=== PATIENT | female | born 1935 | race Caucasian/White ===

== ENCOUNTER → 2016-09-23 | Outpatient (CLI) | payer MEDICARE ==
--- NOTE | 2016-09-28 11:05 | MM ---
Reason for exam: screening (asymptomatic). Last mammogram was performed 1 year and 1 month ago. History: Patient is postmenopausal. Benign US breast aspiration single LT of the left breast, October 10, 2014. Benign US breast localization LT, October 02, 2014. Benign left breast aspiration of the left breast, February 05, 2012. Excisional biopsy of the left breast, September 26, 2007. Physical Findings: A clinical breast exam by your physician is recommended on an annual basis and results should be correlated with mammographic findings. MG 3D Screening Mammo W/Cad Bilateral CC and MLO view(s) were taken. Prior study comparison: September 04, 2015, bilateral MG 3d diag mammo w/cad HOLLY. April 24, 2015, left breast MG 3d diag mammo w/cad LT. The breast tissue is heterogeneously dense. This may lower the sensitivity of mammography. Finding: There are typically stable benign calcifications. No significant changes in finding since September 04, 2015 and April 24, 2015. ASSESSMENT: Benign, BI-RAD 2 RECOMMENDATION: Routine screening mammogram of both breasts in 1 year.
== END | disposition home or self-care (01) ==
LOC: RADMAMWWP 08:58
PROVIDERS: ATTEND Family Medicine
DX: Z12.31 Encounter for screening mammogram for malignant neoplasm of breast (principal)
CPT/HCPCS: 77063; G0202

== ENCOUNTER 2016-10-05 16:45 | Emergency (ER) | payer MEDICARE ==
[2016-10-05 17:14] VITALS: TEMP 97.1
--- NOTE | 2016-10-05 18:41 | ED ---
General Adult HPI - General Chief complaint: Chest Pain Stated complaint: Fall Time Seen by Provider: 10/05/16 18:31 Source: patient, RN notes reviewed Mode of arrival: wheelchair Limitations: no limitations - History of Present Illness Initial comments: 80-year-old female presents emergency Department chief complaint fall. Patient states she was going up her steps with a bag of groceries and fell onto the groceries. Patient complains of left chest wall pain. She states that she did not hit her head and there was no LOC. Denies any abdominal pain and denies nausea, vomiting, diarrhea constipation. Denies any extremity injuries including upper and lower extremities. Patient states she just has pain along her left anterior to lateral ribs. She states it is worse when she twists and bends and when she takes a deep inspiration. Patient did note that she does take Coumadin and usually has it checked once a month on the . She states she has not had it checked every 3 weeks. Patient denies any new bruising. She states her was some bruising on her abdomen which was old. Patient denies headache, dizziness. - Related Data Home Medications Medication Instructions Recorded Confirmed Carvedilol [Coreg] 3.125 mg PO BID 10/02/14 10/05/16 Docusate [Colace] 100 mg PO DAILY 10/02/14 10/05/16 Furosemide [Lasix] 20 mg PO DAILY PRN 10/02/14 10/05/16 Irbesartan 150 mg PO BID 10/02/14 10/05/16 Isosorbide Mononitrate ER [Imdur] 30 mg PO DAILY 10/02/14 10/05/16 Loratadine [Claritin] 10 mg PO DAILY PRN 10/02/14 10/05/16 Nitroglycerin Sl Tabs [Nitrostat] 0.4 mg SUBLINGUAL Q5M PRN 10/02/14 10/05/16 [place]-3 Fatty Acids/Fish Oil [Fish 1 cap PO BID 10/02/14 10/05/16 Oil 1,000 mg Softgel] Ranitidine HCl [Zantac] 150 mg PO DAILY PRN 10/02/14 10/05/16 Vitamin E (Dl,Tocopheryl Acet) 400 tab PO HS 10/02/14 10/05/16 [Vitamin E] Warfarin [Coumadin] 5 mg PO Q48H 10/02/14 10/05/16 Aspirin [Adult Low Dose Aspirin EC] 81 mg PO DAILY 01/13/16 10/05/16 Albuterol Inhaler [Ventolin Hfa 2 puff INHALATION RT-Q4H PRN 06/11/16 10/05/16 Inhaler] Montelukast [Singulair] 10 mg PO QAM 06/11/16 10/05/16 Warfarin [Coumadin] 7.5 mg PO Q48H 06/11/16 10/05/16 Cholecalciferol [Vitamin D3] 1,000 unit PO DAILY 10/05/16 10/05/16 Previous Rx's Medication Instructions Recorded Acetaminophen-Codeine 300-30mg 1 tab PO Q4H PRN #20 tablet 10/05/16 [Tylenol #3] Allergies Allergy/AdvReac Type Severity Reaction Status Date / Time benazepril HCl Allergy Wheezing Verified 10/05/16 19:05 [From Lotensin] gemfibrozil [From Lopid] Allergy Rash/Hives Verified 10/05/16 19:05 amlodipine besylate AdvReac Swelling Verified 10/05/16 19:05 [From Norvasc] atorvastatin calcium AdvReac Nausea & Verified 10/05/16 19:05 [From Lipitor] Vomiting esomeprazole magnesium AdvReac Cough Verified 10/05/16 19:05 [From Nexium] pravastatin AdvReac Unknown Verified 10/05/16 19:05 procaine HCl [From Novocain] AdvReac Unknown Verified 10/05/16 19:05 Review of Systems ROS Statement: Those systems with pertinent positive or pertinent negative responses have been documented in the HPI. ROS Other: All systems not noted in ROS Statement are negative. Past Medical History Past Medical History: Atrial Fibrillation, Coronary Artery Disease (CAD), CVA/ TIA, GERD/Reflux, GI Bleed, Hyperlipidemia, Hypertension Additional Past Medical History / Comment(s): arthritis, osteoporsis, History of Any Multi-Drug Resistant Organisms: None Reported Past Surgical History: Cholecystectomy, Heart Catheterization, Tonsillectomy Additional Past Surgical History / Comment(s): hysterectomy, colonscopy/polys removed, breast biopsies Past Anesthesia/Blood Transfusion Reactions: No Reported Reaction Past Psychological History: No Psychological Hx Reported Smoking Status: Former smoker Past Alcohol Use History: None Reported Past Drug Use History: None Reported - Past Family History Son(s) Family Medical History: AICD/Pacemaker, Hyperlipidemia, Hypertension Additional Family Medical History / Comment(s): heart valve replacement, colon CA, heart murmur, heart failure since been resolved Mother Family Medical History: Coronary Artery Disease (CAD), Myocardial Infarction ([place] ) Father Family Medical History: CVA/TIA, Hypertension, Myocardial Infarction ([place]) General Exam General appearance: alert, in no apparent distress Head exam: Present: atraumatic, normocephalic, normal inspection Eye exam: Present: normal appearance ENT exam: Present: normal exam, normal oropharynx Neck exam: Present: normal inspection, full ROM. Absent: tenderness, meningismus, lymphadenopathy Respiratory exam: Present: normal lung sounds bilaterally, chest wall tenderness (Moderate left anterior to lateral rib tenderness), other (There is no ecchymosis on the chest wall). Absent: respiratory distress, wheezes, rales , rhonchi, stridor Cardiovascular Exam: Present: regular rate, normal rhythm, normal heart sounds. Absent: systolic murmur, diastolic murmur, rubs, gallop, clicks GI/Abdominal exam: Present: soft, normal bowel sounds. Absent: distended, tenderness, guarding, rebound, rigid Extremities exam: Present: normal inspection, full ROM, normal capillary refill. Absent: tenderness, pedal edema, joint swelling, calf tenderness Back exam: Present: full ROM. Absent: tenderness, paraspinal tenderness, vertebral tenderness Neurological exam: Present: alert, oriented X3, CN II-XII intact, reflexes normal. Absent: motor sensory deficit Skin exam: Present: warm, dry, intact, normal color. Absent: rash Course Vital Signs 10/05/16 17:04 Temperature 97.1 F L Pulse Rate 97 Respiratory 18 Rate O2 Sat by Pulse 97 Oximetry Medical Decision Making - Medical Decision Making 8-year-old female presents emergency Department chief complaint fall. Patient complains of rib pain after fall. There is no acute displaced fracture. Patient most likely has rib contusion versus nondisplaced fracture. Patient be given pain medication and discharge. - Lab Data Lab Results 10/05/16 Range/Units 18:49 PT 26.1 H (9.0-12.0) sec INR 2.7 (<1.1) APTT 31.6 H (22.0-30.0) sec Disposition Clinical Impression: Fall, Rib contusion Disposition: HOME SELF-CARE Condition: Stable Instructions: Rib Contusion (ED) Additional Instructions: Please return to the Emergency Department if symptoms worsen or any other concerns. Prescriptions: Acetaminophen-Codeine 300-30mg [Tylenol #3] 1 tab PO Q4H PRN #20 tablet PRN Reason: pain Time of Disposition: 20:06
[2016-10-05 19:10] LABS: INR 2.7 (<1.1); Partial Thromboplastin Time 31.6 sec (22.0-30.0); Prothrombin Time 26.1 sec (9.0-12.0)
--- NOTE | 2016-10-05 19:27 | XR ---
EXAMINATION TYPE: XR ribs LT w pa chest xray DATE OF EXAM: 10/05/2016 7:12 PM CLINICAL HISTORY: Chest and left-sided rib pain after fall injury today. TECHNIQUE: Single frontal view of the chest is obtained. A frontal and oblique images of the left-alessandro ed ribs are acquired. COMPARISON: Prior chest x-ray June 11, 2016. FINDINGS: There is no focal air space opacity, pleural effusion, or pneumothorax seen. The cardiac silhouette size remains enlarged with atherosclerotic and slightly ectatic thoracic aorta. Underlying scoliosis is redemonstrated. Osseous structures are demineralized which is noted to lower radiograph ic sensitivity. Dedicated images of left-sided ribs show no acute displaced left-sided rib fracture IMPRESSION: 1. Cardiomegaly without acute pulmonary process. 2. No acute displaced left-sided rib fractures are clearly seen.
[2016-10-05] MEDS ORDERED: ACET/COD 300 MG/30 MG STARTER PACK 6 TAB BTL PO STA (20:08)
[2016-10-05 20:18] VITALS: BP 140/97; PULSE 91; RESP 16
== END 2016-10-05 20:18 | disposition home or self-care (01) ==
LOC: EC 16:45
DX: S20.212A Contusion of left front wall of thorax, initial encounter (principal); I25.10 Atherosclerotic heart disease of native coronary artery without angina pectoris; K21.9 Gastro-esophageal reflux disease without esophagitis; E78.5 Hyperlipidemia, unspecified; I10 Essential (primary) hypertension; I48.91 Unspecified atrial fibrillation; Z87.891 Personal history of nicotine dependence; Z95.818 Presence of other cardiac implants and grafts; Z79.02 Long term (current) use of antithrombotics/antiplatelets; Z79.899 Other long term (current) drug therapy; Z79.01 Long term (current) use of anticoagulants; Z79.82 Long term (current) use of aspirin; Z88.8 Allergy status to other drugs, medicaments and biological substances; W10.9XXA Fall (on) (from) unspecified stairs and steps, initial encounter
CPT/HCPCS: 36415; 85610; 85730; 99283

== ENCOUNTER 2016-12-15 10:44 | Day surgery (SDC) | payer MEDICARE ==
[2016-12-11 08:42] VITALS: BMI 30.5
[~2016-12-15 10:44] MED LIST: SODIUM CHLORIDE 0.9% 1,000 ML IV SCH
[2016-12-15 11:12] VITALS: TEMP 97.7
[2016-12-15 11:34] LABS: Basophils % (A) 1 %; CH 29.3; CHCM 32.8; Eosinophils # (A) 0.2 k/uL (0-0.7); Eosinophils % (A) 4 %; HCT 40.8 % (34.0-46.0); HDW 2.63; HGB 13.3 gm/dL (11.4-16.0); Luc # (Auto) 0.19; Luc % (Auto) 4; Lymphocytes # (A) 1.8 k/uL (1.0-4.8); Lymphocytes % (A) 35 %; MCH 29.3 pg (25.0-35.0); MCHC 32.7 g/dL (31.0-37.0); MCV 89.7 fL (80.0-100.0); Mean Platelet Volume 7.8; Monocytes # (A) 0.4 k/uL (0-1.0); Monocytes % (A) 8 %; Neutrophils # (A) 2.4 k/uL (1.3-7.7); Neutrophils % (A) 49 %; RBC 4.54 m/uL (3.80-5.40); RDW 14.4 % (11.5-15.5); WBC (Perox) 5.25
[2016-12-15 11:44] LABS: INR 3.6 (<1.1); Prothrombin Time 35.4 sec (9.0-12.0)
[2016-12-15] MEDS ORDERED: SODIUM CHLORIDE 0.9% 500 ML IV ONE (11:55)
[2016-12-15] MEDS: BENZOCAINE SPRAY 100 APPLIC/CAN TOPICAL ONE ×2 (11:57→12:11)
[2016-12-15 12:07] LABS: Anion Gap 9 mmol/L; Blood Urea Nitrogen 21 mg/dL (7-17); Calcium 9.1 mg/dL (8.4-10.2); Carbon Dioxide 26 mmol/L (22-30); Chloride 104 mmol/L (98-107); Glucose 113 mg/dL (74-99); Non-African American GFR(MDRD) 50 (>60 ml/min/1.73 sqM); Potassium 4.3 mmol/L (3.5-5.1); Sodium 139 mmol/L (137-145)
[2016-12-15] MEDS ORDERED: LIDOCAINE 1% INJ 10MG/ML (20 ML MDV) ONE (12:12)
[2016-12-15] MEDS ORDERED: PROPOFOL 10 MG/ML 20 ML VIAL IV ONE (12:12)
[2016-12-15 12:53] VITALS: PULSE 69
[2016-12-15 14:52] VITALS: RESP 20
[2016-12-15 14:53] VITALS: BP 111/53
--- NOTE | 2016-12-15 15:12 | ECHOT ---
DATE OF SERVICE: 12/15/2016 PERFORMING PHYSICIAN: Silver Aranda MD, wafer fabrication operator. PROCEDURE PERFORMED: Transesophageal echocardiogram. INDICATION OF THE STUDY: This is a pleasant 80-year-old female patient who was diagnosis with A. fib and RVR and she was scheduled to undergo a cardioversion. The transesophageal echocardiogram is to rule out any left atrial appendage thrombus. COMPLICATIONS: None. LEVEL OF SEDATION: Moderate with sedation length about 15 minutes. PROCEDURE DESCRIPTION: After obtaining an informed consent, explaining the procedure, benefits, risks, complications and alternatives, the patient was brought to the transesophageal echocardiogram suite. A pulse oximetry and heart rate monitors were attached to the patient prior to the procedure. The patient's throat was sprayed using lidocaine locally. Following that, the patient was turned into left lateral position. A bite guard was placed and the patient was then sedated with the above doses of Versed and fentanyl in divided doses. Following that, the transesophageal echocardiogram probe was advanced through the bite guard into the mid esophagus where 2-D echocardiogram images as well as color Doppler images of various cardiac structures were obtained. We evaluated the interatrial septum using 2-D echocardiogram, color Doppler, and contrast study. The procedure was completed. There were no complications. FINDINGS: The left ventricular dimension and systolic function appeared to be within normal limits. The ejection fraction seems to be in the range of 50%. The left atrium appeared to be mildly dilated. The left atrial appendage appeared to be free from any thrombus. The interatrial septum appeared to be intact without any evidence of shunt. The aortic valve is thickened and calcified without stenosis with trace insufficiency. The mitral valve seems to be also thickened with mild MR, There was moderate tricuspid regurgitation seen. CONCLUSION: 1. Normal left atrial appendage without any evidence of thrombus. 2. Intact interatrial septum without any evidence of shunt. 3. Mild biatrial enlargement. 4. Low normal left ventricular systolic function with an ejection fraction of 50%. 5. Aortic sclerosis without stenosis with mild insufficiency. 6. Thickened mitral valve leaflets with mild mitral regurgitation. 7. Moderate tricuspid regurgitation. 8. No evidence of pericardial effusion.
--- NOTE | 2016-12-15 15:12 | CE ---
DATE OF SERVICE: 12/15/2016 PERFORMING PHYSICIAN: Silver Aranda MD, hog stomach preparer. PROCEDURES PERFORMED: Cardioversion. INDICATION: This is a pleasant 80-year-old female patient who was diagnosed with atrial fibrillation and underwent transesophageal echocardiogram where left atrial appendage thrombus was ruled out. COMPLICATION: None. PROCEDURE DESCRIPTION: After transesophageal echocardiogram was performed and left atrial appendage was ruled out, we proceeded with a cardioversion. The patient converted from atrial fibrillation to normal sinus mechanism using 360 joules on second attempt. CONCLUSION: Successful cardioversion of atrial fibrillation into normal sinus mechanism using 360 joules on second attempt.
== END 2016-12-15 14:45 | disposition home or self-care (01) ==
LOC: CATHCVL 10:44
PROVIDERS: ATTEND Internal Medicine Interventional Cardiology
DX: I48.0 Paroxysmal atrial fibrillation (principal); I11.9 Hypertensive heart disease without heart failure; I08.3 Combined rheumatic disorders of mitral, aortic and tricuspid valves; I44.7 Left bundle-branch block, unspecified; R94.31 Abnormal electrocardiogram [ECG] [EKG]; I25.10 Atherosclerotic heart disease of native coronary artery without angina pectoris; E78.5 Hyperlipidemia, unspecified; I73.9 Peripheral vascular disease, unspecified; I48.92 Unspecified atrial flutter; K21.9 Gastro-esophageal reflux disease without esophagitis; Z82.49 Family history of ischemic heart disease and other diseases of the circulatory system; Z79.01 Long term (current) use of anticoagulants; Z79.82 Long term (current) use of aspirin; Z79.899 Other long term (current) drug therapy; Z88.8 Allergy status to other drugs, medicaments and biological substances; Z87.891 Personal history of nicotine dependence
CPT/HCPCS: 93312; 93320; 93005; 93325; 92960; 80048; 85025; 85610; J2001; J2704

== ENCOUNTER 2017-08-08 21:22 | Observation (INO) | payer MEDICARE ==
[2017-08-08] MEDS ORDERED: SODIUM CHLORIDE 0.9% 500 ML IV STA (21:49)
[2017-08-08] MEDS ORDERED: NITROGLYCERIN OINT 1 INCH/GM PACKET TOPICAL STA (21:49)
[2017-08-08] MEDS ORDERED: ASPIRIN 81 MG PO STA (21:49)
--- NOTE | 2017-08-08 21:52 | ED ---
General Adult HPI - General Chief complaint: Chest Pain Stated complaint: chest pain Time Seen by Provider: 08/08/17 21:25 Source: patient, RN notes reviewed Mode of arrival: wheelchair Limitations: no limitations - History of Present Illness Initial comments: This is an 81-year-old female with past medical history significant for atrial fibrillation and hypertension. Patient comes in today complaining of left- sided chest pain. Patient states radiates to her neck and her left arm. Patient states she does not get short of breath with that she's not diaphoretic and there is no nausea. Patient states she took nitroglycerin it took the pain away for a few minutes but the pain is since returned. Patient calls the pain and achy pressure. Patient denies any recent fever chills or cough. Patient denies any abdominal pain patient denies nausea vomiting diarrhea. Patient denies any patient denies numbness weakness. Patient denies lightheadedness dizziness or near-syncopal episode. Patient states she has not exerted herself so she does not know if that makes the pain worse. Patient denies any calf pain or leg swelling. - Related Data Home Medications Medication Instructions Recorded Confirmed Docusate [Colace] 100 mg PO DAILY 10/02/14 08/08/17 Furosemide [Lasix] 20 mg PO DAILY PRN 10/02/14 08/08/17 Irbesartan 150 mg PO DAILY 10/02/14 08/08/17 Isosorbide Mononitrate ER [Imdur] 30 mg PO DAILY 10/02/14 08/08/17 Loratadine [Claritin] 10 mg PO DAILY PRN 10/02/14 08/08/17 Nitroglycerin Sl Tabs [Nitrostat] 0.4 mg SUBLINGUAL Q5M PRN 10/02/14 08/08/17 [place]-3 Fatty Acids/Fish Oil [Fish 1,000 mg PO BID 10/02/14 08/08/17 Oil 1,000 mg Softgel] Ranitidine HCl [Zantac] 150 mg PO DAILY PRN 10/02/14 08/08/17 Vitamin E (Dl,Tocopheryl Acet) 400 tab PO HS 10/02/14 08/08/17 [Vitamin E] Warfarin [Coumadin] 5 mg PO SUTUTHSA 10/02/14 08/08/17 Aspirin [Adult Low Dose Aspirin EC] 81 mg PO DAILY 01/13/16 08/08/17 Albuterol Inhaler [Ventolin Hfa 2 puff INHALATION RT-Q4H PRN 06/11/16 08/08/17 Inhaler] Warfarin [Coumadin] 7.5 mg PO MOWEFR 06/11/16 08/08/17 Cholecalciferol [Vitamin D3] 1,000 unit PO BID 10/05/16 08/08/17 Carvedilol [Coreg] 6.25 mg PO BID 12/11/16 08/08/17 Previous Rx's Medication Instructions Recorded Acetaminophen-Codeine 300-30mg 1 tab PO Q4H PRN #20 tablet 10/05/16 [Tylenol w/codeine #3] Allergies Allergy/AdvReac Type Severity Reaction Status Date / Time benazepril HCl Allergy Wheezing Verified 08/08/17 21:57 [From Lotensin] fluticasone Allergy mouth sores Verified 08/08/17 21:57 [From Advair Diskus] gemfibrozil [From Lopid] Allergy Rash/Hives Verified 08/08/17 21:57 metoprolol [From Lopressor] Allergy Hallucinati Verified 08/08/17 21:57 ons montelukast Allergy peeling Verified 08/08/17 21:57 skin and rash salmeterol Allergy mouth sores Verified 08/08/17 21:57 [From Advair Diskus] amlodipine besylate AdvReac Swelling Verified 08/08/17 21:57 [From Norvasc] atorvastatin calcium AdvReac Nausea & Verified 08/08/17 21:57 [From Lipitor] Vomiting esomeprazole magnesium AdvReac Cough Verified 08/08/17 21:57 [From Nexium] pravastatin AdvReac Unknown Verified 08/08/17 21:57 procaine HCl [From Novocain] AdvReac Unknown Verified 08/08/17 21:57 Review of Systems ROS Statement: Those systems with pertinent positive or pertinent negative responses have been documented in the HPI. ROS Other: All systems not noted in ROS Statement are negative. Past Medical History Past Medical History: Atrial Fibrillation, Asthma, Coronary Artery Disease (CAD) , Heart Failure, CVA/TIA, GERD/Reflux, GI Bleed, Hyperlipidemia, Hypertension, Pneumonia Additional Past Medical History / Comment(s): osteoporsis, hx migraines, TIA- no effects, swelling in ankles(left worse), hx ulcer, hiatal hernia, arthritis, History of Any Multi-Drug Resistant Organisms: None Reported Past Surgical History: Breast Surgery, Cholecystectomy, Heart Catheterization, Hysterectomy, Tonsillectomy Additional Past Surgical History / Comment(s): left breast biopsies, left carotid endarterectomy, left cataract, Past Anesthesia/Blood Transfusion Reactions: Motion Sickness Past Psychological History: No Psychological Hx Reported Smoking Status: Former smoker - Past Family History Son(s) Family Medical History: Cancer Additional Family Medical History / Comment(s): heart valve replacement, colon CA, heart murmur, heart failure since been resolved Mother Family Medical History: Coronary Artery Disease (CAD), Myocardial Infarction ([place] ) Father Family Medical History: CVA/TIA, Hypertension, Myocardial Infarction ([place]) General Exam - General Exam Comments Initial Comments: GENERAL: Patient is well-developed and well-nourished. Patient is nontoxic and well- hydrated and is in mild distress. ENT: Neck is soft and supple. No significant lymphadenopathy is noted. Oropharynx is clear. Moist mucous membranes. EYES: The sclera were anicteric and conjunctiva were pink and moist. Extraocular movements were intact and pupils were equal round and reactive to light. Eyelids were unremarkable. PULMONARY: Unlabored respirations. Good breath sounds bilaterally. No audible rales rhonchi or wheezing was noted. CARDIOVASCULAR: There is a regular rate and rhythm without any murmurs gallops or rubs. ABDOMEN: Soft and nontender with normal bowel sounds. No palpable organomegaly was noted. There is no palpable pulsatile mass. SKIN: Skin is clear with no lesions or rashes and otherwise unremarkable. NEUROLOGIC: Patient is alert and oriented x3. Cranial nerves II through XII are grossly intact. Motor and sensory are also intact. Normal speech, volume and content. Symmetrical smile. MUSCULOSKELETAL: Normal extremities with adequate strength and full range of motion. No lower extremity swelling or edema. No calf tenderness. LYMPHATICS: No significant lymphadenopathy is noted PSYCHIATRIC: Normal psychiatric evaluation. Normal interpersonal interactions appears functionally intact in deals appropriately with others. No signs of depression. No signs of anxiety. Limitations: no limitations Course Vital Signs 08/08/17 21:25 Temperature 97.7 F Pulse Rate 74 Respiratory 18 Rate Blood Pressure 194/91 O2 Sat by Pulse 99 Oximetry Medical Decision Making - Medical Decision Making EKG shows atrial fibrillation at 77 bpm QRS is 88 QT interval 370 QTC is 418. Patient's EKG was compared to an old EKG and it did show atrial fibrillation in the past as well. Patient's EKG currently does not have any ST segment elevation or depression or T wave abnormalities are noted. Patient's chest x-ray shows no acute abnormality. I went back into reevaluate the patient patient stated the Nitropaste seems to reduce her pain to 0 at this time. Patient's states that she is on Coumadin but hasn't taken the last 2 evenings. I spoke with Dr. Najera he agreed to admit the patient admitted the patient I wrote admitting orders. - Lab Data Result diagrams: 08/08/17 22:00 08/08/17 22:00 Lab Results 08/08/17 08/08/17 08/08/17 Range/Units 22:00 22:00 22:00 WBC 5.5 (3.8-10.6) k/uL RBC 4.57 (3.80-5.40) m/uL Hgb 13.8 (11.4-16.0) gm/dL Hct 40.8 (34.0-46.0) % MCV 89.3 (80.0-100.0) fL MCH 30.2 (25.0-35.0) pg MCHC 33.8 (31.0-37.0) g/dL RDW 13.4 (11.5-15.5) % Plt Count 219 (150-450) k/uL Neutrophils % 54 % Lymphocytes % 31 % Monocytes % 8 % Eosinophils % 4 % Basophils % 1 % Neutrophils # 3.0 (1.3-7.7) k/uL Lymphocytes # 1.7 (1.0-4.8) k/uL Monocytes # 0.4 (0-1.0) k/uL Eosinophils # 0.2 (0-0.7) k/uL Basophils # 0.0 (0-0.2) k/uL PT (9.0-12.0) sec INR (<1.2) APTT (22.0-30.0) sec Sodium 140 (137-145) mmol/L Potassium 4.2 (3.5-5.1) mmol/L Chloride 105 (98-107) mmol/L Carbon Dioxide 28 (22-30) mmol/L Anion Gap 7 mmol/L BUN 16 (7-17) mg/dL Creatinine 1.00 (0.52-1.04) mg/dL Est GFR (MDRD) Af Amer >60 (>60 ml/min/1.73 sqM) Est GFR (MDRD) Non-Af 53 (>60 ml/min/1.73 sqM) Glucose 109 H (74-99) mg/dL Calcium 9.5 (8.4-10.2) mg/dL Magnesium 2.1 (1.6-2.3) mg/dL Total Bilirubin 0.7 (0.2-1.3) mg/dL AST 27 (14-36) U/L ALT 38 (9-52) U/L Alkaline Phosphatase 93 (38-126) U/L Total Creatine Kinase 86 (30-135) U/L CK-MB (CK-2) 1.8 (0.0-2.4) ng/mL CK-MB (CK-2) Rel Index 2.1 Troponin I <0.012 (0.000-0.034) ng/mL Total Protein 6.7 (6.3-8.2) g/dL Albumin 3.9 (3.5-5.0) g/dL Amylase 98 (30-110) U/L Lipase 129 (23-300) U/L 08/08/17 Range/Units 22:00 WBC (3.8-10.6) k/uL RBC (3.80-5.40) m/uL Hgb (11.4-16.0) gm/dL Hct (34.0-46.0) % MCV (80.0-100.0) fL MCH (25.0-35.0) pg MCHC (31.0-37.0) g/dL RDW (11.5-15.5) % Plt Count (150-450) k/uL Neutrophils % % Lymphocytes % % Monocytes % % Eosinophils % % Basophils % % Neutrophils # (1.3-7.7) k/uL Lymphocytes # (1.0-4.8) k/uL Monocytes # (0-1.0) k/uL Eosinophils # (0-0.7) k/uL Basophils # (0-0.2) k/uL PT 18.3 H (9.0-12.0) sec INR 2.0 H (<1.2) APTT 29.6 (22.0-30.0) sec Sodium (137-145) mmol/L Potassium (3.5-5.1) mmol/L Chloride (98-107) mmol/L Carbon Dioxide (22-30) mmol/L Anion Gap mmol/L BUN (7-17) mg/dL Creatinine (0.52-1.04) mg/dL Est GFR (MDRD) Af Amer (>60 ml/min/1.73 sqM) Est GFR (MDRD) Non-Af (>60 ml/min/1.73 sqM) Glucose (74-99) mg/dL Calcium (8.4-10.2) mg/dL Magnesium (1.6-2.3) mg/dL Total Bilirubin (0.2-1.3) mg/dL AST (14-36) U/L ALT (9-52) U/L Alkaline Phosphatase (38-126) U/L Total Creatine Kinase (30-135) U/L CK-MB (CK-2) (0.0-2.4) ng/mL CK-MB (CK-2) Rel Index Troponin I (0.000-0.034) ng/mL Total Protein (6.3-8.2) g/dL Albumin (3.5-5.0) g/dL Amylase (30-110) U/L Lipase (23-300) U/L Disposition Clinical Impression: Unstable angina pectoris Disposition: ADMITTED IP TO THIS [facility] Referrals: Tahira Choudhury MD [Primary Care Provider] - 1-2 days Time of Disposition: 23:19
[2017-08-08 22:17] LABS: Basophils % (A) 1 %; Eosinophils # (A) 0.2 k/uL (0-0.7); Eosinophils % (A) 4 %; HCT 40.8 % (34.0-46.0); HGB 13.8 gm/dL (11.4-16.0); Lymphocytes # (A) 1.7 k/uL (1.0-4.8); Lymphocytes % (A) 31 %; MCH 30.2 pg (25.0-35.0); MCHC 33.8 g/dL (31.0-37.0); MCV 89.3 fL (80.0-100.0); Mean Platelet Volume 7.7; Monocytes # (A) 0.4 k/uL (0-1.0); Monocytes % (A) 8 %; Neutrophils % (A) 54 %; Platelet Count 219 k/uL (150-450); RBC 4.57 m/uL (3.80-5.40); RDW 13.4 % (11.5-15.5); WBC 5.5 k/uL (3.8-10.6)
--- NOTE | 2017-08-08 22:19 | XR ---
EXAMINATION TYPE: XR chest 2V DATE OF EXAM: 08/08/2017 COMPARISON: 06/11/2016 HISTORY: Chest pain TECHNIQUE: Frontal and lateral views of the chest are obtained. FINDINGS: There is no heart failure nor confluent pneumonic infiltrate. There is slight coarsening o f interstitial markings. Thoracic aorta is atheromatous. There are chest leads. There is osteopenia. IMPRESSION: No active cardiopulmonary disease. Mild fibrotic changes. No change compared to old exam .
[2017-08-08 22:28] LABS: Partial Thromboplastin Time 29.6 sec (22.0-30.0); Prothrombin Time 18.3 sec (9.0-12.0)
[2017-08-08 22:31] LABS: ALT 38 U/L (9-52); AST 27 U/L (14-36); Albumin 3.9 g/dL (3.5-5.0); Alkaline Phosphatase 93 U/L (38-126); Amylase 98 U/L (30-110); Anion Gap 7 mmol/L; Blood Urea Nitrogen 16 mg/dL (7-17); Calcium 9.5 mg/dL (8.4-10.2); Carbon Dioxide 28 mmol/L (22-30); Chloride 105 mmol/L (98-107); Glucose 109 mg/dL (74-99); Lipase 129 U/L (23-300); Magnesium 2.1 mg/dL (1.6-2.3); Potassium 4.2 mmol/L (3.5-5.1); Sodium 140 mmol/L (137-145); Total Bilirubin 0.7 mg/dL (0.2-1.3); Total Protein 6.7 g/dL (6.3-8.2)
[2017-08-08 22:43] LABS: Creatine Kinase 86 U/L (30-135)
[2017-08-08 22:56] LABS: Creatine Kinase MB 1.8 ng/mL (0.0-2.4); Troponin I <0.012 ng/mL (0.000-0.034)
[2017-08-08] MEDS ORDERED: NITROGLYCERIN SL TABS 0.4 MG TAB SUBLINGUAL PRN (23:20)
[2017-08-08] MEDS ORDERED: FAMOTIDINE 20 MG TAB PO PRN (23:21)
[2017-08-08] MEDS ORDERED: FUROSEMIDE 20 MG TAB PO PRN (23:21)
[2017-08-08] MEDS ORDERED: ALBUTEROL NEBULIZED 2.5 MG/3 ML INHALATION PRN (23:21)
[2017-08-09 00:19] VITALS: BMI 31.8
[2017-08-09 04:27] LABS: Cholesterol 198 mg/dL (<200); HDL Cholesterol 50 mg/dL (40-60); LDL Cholesterol,Calculated 109 mg/dL (0-99); Triglycerides 193 mg/dL (<150)
[2017-08-09 04:40] LABS: Creatine Kinase 70 U/L (30-135)
[2017-08-09 04:54] LABS: Creatine Kinase MB 1.4 ng/mL (0.0-2.4); Troponin I <0.012 ng/mL (0.000-0.034)
[2017-08-09] MEDS: NITROGLYCERIN OINT 1 INCH/GM PACKET TOPICAL SCH ×2 (06:04→11:34)
[2017-08-09 07:20] VITALS: BP 124/58; PULSE 68; RESP 16; TEMP 98
[2017-08-09] MEDS ORDERED: CARVEDILOL 6.25 MG TAB PO SCH (07:30)
[2017-08-09] MEDS ORDERED: ASPIRIN 325 MG TAB PO SCH (09:00)
[2017-08-09] MEDS ORDERED: ASPIRIN 81 MG PO SCH (09:12)
[2017-08-09] MEDS ORDERED: AMINOPHYLLINE 500 MG/20 ML VIAL IV PRN (09:19)
[2017-08-09] MEDS ORDERED: REGADENOSON 0.4 MG/5 ML SYRINGE IV ONE (09:19)
[2017-08-09] MEDS ORDERED: LOSARTAN 50 MG TAB PO SCH (10:00)
[2017-08-09 10:33] LABS: Creatine Kinase 67 U/L (30-135)
[2017-08-09 10:45] LABS: Creatine Kinase MB 1.4 ng/mL (0.0-2.4); Troponin I <0.012 ng/mL (0.000-0.034)
--- NOTE | 2017-08-09 11:34 | P.CRDCN ---
History of Present Illness Consult date: 08/09/17 Consult reason: chest pain History of present illness: Mrs. Thomas is a pleasant 81-year-old female past medical history significant for chronic persistent atrial fibrillation on group home anticoagulation with coumadin, hypertension, dyslipidemia, peripheral arterial disease, left carotid endartectomy and gastroesophageal reflux disease. She sees Dr. Aranda in the office. We have been asked to see her in consultation for complaints of chest pain. She states she has had epigastric burning for the past 2 days consistent with GERD/ulcer type pain she has experienced in the past. However yesterday while she was sitting down she experienced the burning radiating up in to the left anterior chest wall and into left shoulder, back and neck. She denies associated shortness of breath, dizziness, palpitations, diaphoresis, nausea or vomiting. This persisted until she presented to the hospital and was given a nitro patch. She's had no further episodes of chest pain since admission. She is currently resting comfortably in no acute distress. Telemetry tracings have been unremarkable with no evidence of an acute arrhythmia. EKG on arrival reveals atrial fibrillation with controlled ventricular response heart rate 77. Chest x-ray showed mild fibrotic changes. Laboratory data reviewed, hemoglobin 13.8, platelets 219, INR 2.0, potassium 4.2 , magnesium 2.1, creatinine 1.0, cardiac enzymes negative 3, LDL 109, HDL 50. Current cardiac medications include Coumadin, Imdur 30 mg daily, irbesartan 150 mg daily, Lasix 20 mg daily as needed, carvedilol 6.25 mg twice a day and aspirin 81 mg daily. She underwent cardiac catheterization in 2004 which revealed normal coronaries. Most recent stress test was December 2015 she had a negative Lexiscan stress test with no evidence of fixed or reversible ischemia. Most recent echocardiogram performed November 2016 revealed normal EF with aortic sclerosis and mild aortic regurgitation. Review of Systems At the time of my exam: CONSTITUTIONAL: Denies fever. Denies chills. EYES: Denies blurred vision. Denies vision changes. Denies eye pain. EARS, NOSE, MOUTH & THROAT: Denies headache. Denies sore throat. Denies ear pain. CARDIOVASCULAR: Denies chest pain. Denies shortness of breath. Denies orthopnea. Denies PND. Denies palpitations. RESPIRATORY: Denies cough. GASTROINTESTINAL: Denies abdominal pain. Denies diarrhea. Denies constipation. Denies nausea. Denies vomiting. MUSCULOSKELETAL: Denies myalgias. INTEGUMENTARY: Denies pruitis. Denies rash. NEUROLOGIC: Denies numbness. Denies tingling. Denies weakness. PSYCHIATRIC: Denies anxiety. Denies depression. ENDOCRINE: Denies fatigue. Denies weight change. Denies polydipsia. Denies polyurina. GENITOURINARY: Denies burning, hematuria or urgency with micturation. HEMATOLOGIC: Denies history of anemia. Denies bleeding. Past Medical History Past Medical History: Atrial Fibrillation, Asthma, Coronary Artery Disease (CAD) , Heart Failure, CVA/TIA, GERD/Reflux, GI Bleed, Hyperlipidemia, Hypertension, Pneumonia Additional Past Medical History / Comment(s): osteoporsis, hx migraines, TIA- no effects, swelling in ankles(left worse), hx ulcer, hiatal hernia, arthritis, History of Any Multi-Drug Resistant Organisms: None Reported Past Surgical History: Breast Surgery, Cholecystectomy, Heart Catheterization, Hysterectomy, Tonsillectomy Additional Past Surgical History / Comment(s): left breast biopsies, left breat cyst removed, left carotid endarterectomy, bilateral cataract, Past Anesthesia/Blood Transfusion Reactions: Motion Sickness Past Psychological History: No Psychological Hx Reported Smoking Status: Former smoker Past Alcohol Use History: None Reported Additional Past Alcohol Use History / Comment(s): quit smoking 50 yrs ago, smoked for 3 yrs, 1 pack/week Past Drug Use History: None Reported - Past Family History Son(s) Family Medical History: Cancer Additional Family Medical History / Comment(s): heart valve replacement, colon CA, heart murmur, heart failure since been resolved Mother Family Medical History: Coronary Artery Disease (CAD), Myocardial Infarction ([place] ) Father Family Medical History: CVA/TIA, Hypertension, Myocardial Infarction ([place]) Medications and Allergies Home Medications Medication Instructions Recorded Confirmed Type Docusate [Colace] 100 mg PO DAILY 10/02/14 08/08/17 History Furosemide [Lasix] 20 mg PO DAILY PRN 10/02/14 08/08/17 History Irbesartan 150 mg PO DAILY 10/02/14 08/08/17 History Isosorbide Mononitrate ER [Imdur] 30 mg PO DAILY 10/02/14 08/08/17 History Loratadine [Claritin] 10 mg PO DAILY PRN 10/02/14 08/08/17 History Nitroglycerin Sl Tabs [Nitrostat] 0.4 mg SUBLINGUAL Q5M PRN 10/02/14 08/08/17 History [place]-3 Fatty Acids/Fish Oil [Fish 1,000 mg PO BID 10/02/14 08/08/17 History Oil 1,000 mg Softgel] Ranitidine HCl [Zantac] 150 mg PO DAILY PRN 10/02/14 08/08/17 History Vitamin E (Dl,Tocopheryl Acet) 400 tab PO HS 10/02/14 08/08/17 History [Vitamin E] Warfarin [Coumadin] 5 mg PO SUTUTHSA 10/02/14 08/08/17 History Aspirin [Adult Low Dose Aspirin EC] 81 mg PO DAILY 01/13/16 08/08/17 History Albuterol Inhaler [Ventolin Hfa 2 puff INHALATION RT-Q4H PRN 06/11/16 08/08/17 History Inhaler] Warfarin [Coumadin] 7.5 mg PO MOWEFR 06/11/16 08/08/17 History Acetaminophen-Codeine 300-30mg 1 tab PO Q4H PRN #20 tablet 10/05/16 08/08/17 Rx [Tylenol w/codeine #3] Cholecalciferol [Vitamin D3] 1,000 unit PO BID 10/05/16 08/08/17 History Carvedilol [Coreg] 6.25 mg PO BID 12/11/16 08/08/17 History Allergies Allergy/AdvReac Type Severity Reaction Status Date / Time benazepril HCl Allergy Wheezing Verified 08/08/17 21:57 [From Lotensin] fluticasone Allergy mouth sores Verified 08/08/17 21:57 [From Advair Diskus] gemfibrozil [From Lopid] Allergy Rash/Hives Verified 08/08/17 21:57 metoprolol [From Lopressor] Allergy Hallucinati Verified 08/08/17 21:57 ons montelukast Allergy peeling Verified 08/08/17 21:57 skin and rash salmeterol Allergy mouth sores Verified 08/08/17 21:57 [From Advair Diskus] amlodipine besylate AdvReac Swelling Verified 08/08/17 21:57 [From Norvasc] atorvastatin calcium AdvReac Nausea & Verified 08/08/17 21:57 [From Lipitor] Vomiting esomeprazole magnesium AdvReac Cough Verified 08/08/17 21:57 [From Nexium] pravastatin AdvReac Unknown Verified 08/08/17 21:57 procaine HCl [From Novocain] AdvReac Unknown Verified 08/08/17 21:57 Physical Exam Vitals: Vital Signs Temp Pulse Pulse Resp BP BP Pulse Ox 08/09/17 07:19 98 F 68 16 124/58 95 08/09/17 04:00 98.0 F 66 18 145/79 94 L 08/09/17 01:02 16 08/09/17 00:05 98.3 F 68 16 146/81 94 L 08/08/17 23:43 91 18 142/70 98 08/08/17 21:25 97.7 F 74 18 194/91 99 Intake and Output 08/08/17 08/09/17 08/09/17 22:59 06:59 14:59 Other: Voiding Method Toilet # Voids 1 Weight 81.647 kg 81.647 kg Blood pressure 124/58 heart rate 68 afebrile GENERAL: This is a 81-year-old female in no apparent distress at the time of my examination. HEENT: Head is atraumatic, normocephalic. Pupils are equal, round. Sclerae anicteric. Conjunctivae are clear. Mucous membranes of the mouth are moist. Neck is supple. There is no jugular venous distention. No carotid bruit is heard. LUNGS: Clear to auscultation no wheezes, rales or rhonchi. No chest wall tenderness is noted on palpation or with deep breathing. HEART: Irregular rate and rhythm without murmurs, rubs or gallops. S1 and S2 heard. ABDOMEN: Soft, nontender. Bowel sounds are heard. No organomegaly noted. EXTREMITIES: No evidence of peripheral edema and no calf tenderness noted. VASCULAR: Radial and dorsalis pedis pulses palpated, no evidence of clubbing. NEUROLOGIC: Patient is awake, alert and oriented x3. Results 08/08/17 22:00 08/08/17 22:00 Cardiac Enzymes 08/08/17 08/08/17 08/09/17 Range/Units 22:00 22:00 03:25 AST 27 (14-36) U/L CK-MB (CK-2) 1.8 1.4 (0.0-2.4) ng/mL Troponin I <0.012 <0.012 (0.000-0.034) ng/mL Coagulation 08/08/17 Range/Units 22:00 PT 18.3 H (9.0-12.0) sec APTT 29.6 (22.0-30.0) sec Lipids 08/09/17 Range/Units 03:25 Triglycerides 193 H (<150) mg/dL Cholesterol 198 (<200) mg/dL HDL Cholesterol 50 (40-60) mg/dL CBC 08/08/17 Range/Units 22:00 WBC 5.5 (3.8-10.6) k/uL RBC 4.57 (3.80-5.40) m/uL Hgb 13.8 (11.4-16.0) gm/dL Hct 40.8 (34.0-46.0) % Plt Count 219 (150-450) k/uL Comprehensive Metabolic Panel 08/08/17 Range/Units 22:00 Sodium 140 (137-145) mmol/L Potassium 4.2 (3.5-5.1) mmol/L Chloride 105 (98-107) mmol/L Carbon Dioxide 28 (22-30) mmol/L BUN 16 (7-17) mg/dL Creatinine 1.00 (0.52-1.04) mg/dL Glucose 109 H (74-99) mg/dL Calcium 9.5 (8.4-10.2) mg/dL AST 27 (14-36) U/L ALT 38 (9-52) U/L Alkaline Phosphatase 93 (38-126) U/L Total Protein 6.7 (6.3-8.2) g/dL Albumin 3.9 (3.5-5.0) g/dL Current Medications Generic Name Dose Route Start Last Admin Trade Name Freq PRN Reason Stop Dose Admin Albuterol Sulfate 2.5 mg 08/08/17 23:21 Ventolin Nebulized INHALATION RT-Q4H PRN Shortness Of Breath Aspirin 325 mg 08/09/17 09:00 Aspirin PO DAILY JOSH Carvedilol 6.25 mg 08/09/17 07:30 Coreg PO AC-BID JOSH Famotidine 20 mg 08/08/17 23:21 Pepcid PO DAILY PRN Heartburn Furosemide 20 mg 08/08/17 23:21 Lasix PO DAILY PRN Edema Nitroglycerin 1 inch 08/09/17 06:00 08/09/17 06:04 Nitro-Bid Oint TOPICAL Not Given Q6HR JOSH Nitroglycerin 0.4 mg 08/08/17 23:20 Nitrostat SUBLINGUAL Q5M PRN Chest Pain Warfarin Sodium 5 mg 08/09/17 00:00 08/09/17 06:04 Coumadin PO Not Given [id number] JOSH Warfarin Sodium 7.5 mg 08/09/17 18:00 Coumadin PO [id number]@1800 JOSH Intake and Output 08/08/17 08/09/17 08/09/17 22:59 06:59 14:59 Other: Voiding Method Toilet # Voids 1 Weight 81.647 kg 81.647 kg 08/08/17 22:00 08/08/17 22:00 Assessment and Plan Assessment: ASSESSMENT 1. Chest pain, atypical. No EKG evidence to suggest ischemia and negative cardiac enzymes. 2. Hypertension 3. Persistent atrial fibrillation with controlled ventricular response on long- term anticoagulation with coumadin. Recent cardioversion successful initially with return to a-fib 4. Dyslipidemia, statin intolerant 5. Gastroesophageal reflux disease PLAN An acute coronary event has been ruled out. Perform Lexiscan stress test to evaluate for reversible cardiac ischemia. If this is negative she is stable from a cardiac perspective. She should follow up with Dr. Aranda in 2-3 weeks. Thank you kindly for this consultation. Nurse Practitioner note has been reviewed, I agree with a documented findings and plan of care. Patient was seen and examined.
--- NOTE | 2017-08-09 12:56 | P.HPIM ---
History of Present Illness H&P Date: 08/09/17 This is a 81-year-old female with past medical history significant for chronic atrial fibrillation on anticoagulation with Coumadin, hypertension, dyslipidemia , and peripheral vascular occlusive disease who presented to the emergency room with chest pain. Patient said her pain started couple of days ago he and initially she thought it was acid reflux. He stated the she said that the pain is radiating to the left chest and left shoulder and was more concern. She denies shortness of breath, dizziness, or diaphoresis. She presented to the emergency room for further evaluation. Twelve-lead EKG showed atrial fibrillation with controlled rate. No acute ischemic changes. Serial troponin were negative 2. Patient was placed on observation and was seen and evaluated by cardiology. She underwent a Lexiscan stress test that was reported negative awaiting final report. If stress test this confirmed negative patient will be discharged home in a stable condition and she will follow up with cardiology as scheduled in a couple of weeks. Review of Systems Review of system: 14 points review of systems were obtained and were negative except to what were mentioned in the HPI. Past Medical History Past Medical History: Atrial Fibrillation, Asthma, Coronary Artery Disease (CAD) , Heart Failure, CVA/TIA, GERD/Reflux, GI Bleed, Hyperlipidemia, Hypertension, Pneumonia Additional Past Medical History / Comment(s): osteoporsis, hx migraines, TIA- no effects, swelling in ankles(left worse), hx ulcer, hiatal hernia, arthritis, History of Any Multi-Drug Resistant Organisms: None Reported Past Surgical History: Breast Surgery, Cholecystectomy, Heart Catheterization, Hysterectomy, Tonsillectomy Additional Past Surgical History / Comment(s): left breast biopsies, left breat cyst removed, left carotid endarterectomy, bilateral cataract, Past Anesthesia/Blood Transfusion Reactions: Motion Sickness Past Psychological History: No Psychological Hx Reported Smoking Status: Former smoker Past Alcohol Use History: None Reported Additional Past Alcohol Use History / Comment(s): quit smoking 50 yrs ago, smoked for 3 yrs, 1 pack/week Past Drug Use History: None Reported - Past Family History Son(s) Family Medical History: Cancer Additional Family Medical History / Comment(s): heart valve replacement, colon CA, heart murmur, heart failure since been resolved Mother Family Medical History: Coronary Artery Disease (CAD), Myocardial Infarction ([place] ) Father Family Medical History: CVA/TIA, Hypertension, Myocardial Infarction ([place]) Medications and Allergies Home Medications Medication Instructions Recorded Confirmed Type Docusate [Colace] 100 mg PO DAILY 10/02/14 08/08/17 History Furosemide [Lasix] 20 mg PO DAILY PRN 10/02/14 08/08/17 History Irbesartan 150 mg PO DAILY 10/02/14 08/08/17 History Isosorbide Mononitrate ER [Imdur] 30 mg PO DAILY 10/02/14 08/08/17 History Loratadine [Claritin] 10 mg PO DAILY PRN 10/02/14 08/08/17 History Nitroglycerin Sl Tabs [Nitrostat] 0.4 mg SUBLINGUAL Q5M PRN 10/02/14 08/08/17 History [place]-3 Fatty Acids/Fish Oil [Fish 1,000 mg PO BID 10/02/14 08/08/17 History Oil 1,000 mg Softgel] Ranitidine HCl [Zantac] 150 mg PO DAILY PRN 10/02/14 08/08/17 History Vitamin E (Dl,Tocopheryl Acet) 400 tab PO HS 10/02/14 08/08/17 History [Vitamin E] Warfarin [Coumadin] 5 mg PO SUTUTHSA 10/02/14 08/08/17 History Aspirin [Adult Low Dose Aspirin EC] 81 mg PO DAILY 01/13/16 08/08/17 History Albuterol Inhaler [Ventolin Hfa 2 puff INHALATION RT-Q4H PRN 06/11/16 08/08/17 History Inhaler] Warfarin [Coumadin] 7.5 mg PO MOWEFR 06/11/16 08/08/17 History Acetaminophen-Codeine 300-30mg 1 tab PO Q4H PRN #20 tablet 10/05/16 08/08/17 Rx [Tylenol w/codeine #3] Cholecalciferol [Vitamin D3] 1,000 unit PO BID 10/05/16 08/08/17 History Carvedilol [Coreg] 6.25 mg PO BID 12/11/16 08/08/17 History Allergies Allergy/AdvReac Type Severity Reaction Status Date / Time benazepril HCl Allergy Wheezing Verified 08/08/17 21:57 [From Lotensin] fluticasone Allergy mouth sores Verified 08/08/17 21:57 [From Advair Diskus] gemfibrozil [From Lopid] Allergy Rash/Hives Verified 08/08/17 21:57 metoprolol [From Lopressor] Allergy Hallucinati Verified 08/08/17 21:57 ons montelukast Allergy peeling Verified 08/08/17 21:57 skin and rash salmeterol Allergy mouth sores Verified 08/08/17 21:57 [From Advair Diskus] amlodipine besylate AdvReac Swelling Verified 08/08/17 21:57 [From Norvasc] atorvastatin calcium AdvReac Nausea & Verified 08/08/17 21:57 [From Lipitor] Vomiting esomeprazole magnesium AdvReac Cough Verified 08/08/17 21:57 [From Nexium] pravastatin AdvReac Unknown Verified 08/08/17 21:57 procaine HCl [From Novocain] AdvReac Unknown Verified 08/08/17 21:57 Physical Exam Vitals: Vital Signs Temp Pulse Pulse Resp BP BP Pulse Ox 08/09/17 07:19 98 F 68 16 124/58 95 08/09/17 04:00 98.0 F 66 18 145/79 94 L 08/09/17 01:02 16 08/09/17 00:05 98.3 F 68 16 146/81 94 L 08/08/17 23:43 91 18 142/70 98 08/08/17 21:25 97.7 F 74 18 194/91 99 Intake and Output 08/08/17 08/09/17 08/09/17 22:59 06:59 14:59 Other: Voiding Method Toilet # Voids 1 Weight 81.647 kg 81.647 kg General: The patient is awake and alert, in no distress Eye: there is normal conjunctiva bilaterally. Neck: The neck is supple, there is no JVD. Cardiovascular: Normal S1-S2, no S3-S4, no murmurs. Respiratory: Lungs clear to auscultation bilaterally Gastrointestinal: Abdomen is soft, nontender Musculoskeletal: There is no pedal edema. Neurological:. Speech is normal. Skin: Skin is warm and dry Results CBC & Chem 7: 08/08/17 22:00 08/08/17 22:00 Labs: Abnormal Lab Results - Last 24 Hours (Table) 02/11/18 02/11/18 02/12/18 Range/Units 22:00 22:00 03:25 PT 18.3 H (9.0-12.0) sec INR 2.0 H (<1.2) Glucose 109 H (74-99) mg/dL Triglycerides 193 H (<150) mg/dL LDL Cholesterol, Calc 109 H (0-99) mg/dL Thrombosis Risk Factor Assmnt - Choose All That Apply Each Risk Factor Represents 3 Points: Age 75 years or older Thrombosis Risk Factor Assessment Total Risk Factor Score: 3 Thrombosis Risk Factor Assessment Level: Moderate Risk Assessment and Plan Assessment: This is a 81-year-old female with past medical history significant for chronic atrial fibrillation on anticoagulation with Coumadin, hypertension, dyslipidemia , and peripheral vascular occlusive disease who presented to the emergency room with chest pain. Patient said her pain started couple of days ago he and initially she thought it was acid reflux. He stated the she said that the pain is radiating to the left chest and left shoulder and was more concern. She denies shortness of breath, dizziness, or diaphoresis. She presented to the emergency room for further evaluation. She was given nitro in the emergency room and her chest pain resolved and since admission no further pain anymore. Twelve-lead EKG showed atrial fibrillation with controlled rate. No acute ischemic changes. Serial troponin were negative 2. Patient was placed on observation and was seen and evaluated by cardiology. She underwent a Lexiscan stress test that was reported negative awaiting final report. If stress test this confirmed negative patient will be discharged home in a stable condition and she will follow up with cardiology as scheduled in a couple of weeks.
--- NOTE | 2017-08-09 12:58 | P.DS ---
Providers Date of admission: 08/08/17 23:20 Expected date of discharge: 08/09/17 Attending physician: Sandra Villa Consults: 08/08/17 23:20 Consult Physician Urgent Consulting Provider: [facility] Consult Reason/Comments: Unstable angina Do you want consulting provider notified?: Yes Primary care physician: Tahira [facility] Course: This is a 81-year-old female with past medical history significant for chronic atrial fibrillation on anticoagulation with Coumadin, hypertension, dyslipidemia , and peripheral vascular occlusive disease who presented to the emergency room with chest pain. Patient said her pain started couple of days ago he and initially she thought it was acid reflux. He stated the she said that the pain is radiating to the left chest and left shoulder and was more concern. She denies shortness of breath, dizziness, or diaphoresis. She presented to the emergency room for further evaluation. She was given nitro in the emergency room and her chest pain resolved and since admission no further pain anymore. Twelve-lead EKG showed atrial fibrillation with controlled rate. No acute ischemic changes. Serial troponin were negative 2. Patient was placed on observation and was seen and evaluated by cardiology. She underwent a Lexiscan stress test that was reported negative awaiting final report. If stress test this confirmed negative patient will be discharged home in a stable condition and she will follow up with cardiology as scheduled in a couple of weeks. Plan - Discharge Summary New Discharge Prescriptions: No Action Warfarin [Coumadin] 5 mg PO SUTUTHSA [place]-3 Fatty Acids/Fish Oil [Fish Oil 1,000 mg Softgel] 1,000 mg PO BID Isosorbide Mononitrate ER [Imdur] 30 mg PO DAILY Irbesartan 150 mg PO DAILY Furosemide [Lasix] 20 mg PO DAILY PRN PRN Reason: Edema Loratadine [Claritin] 10 mg PO DAILY PRN PRN Reason: Allergy Symptoms Nitroglycerin Sl Tabs [Nitrostat] 0.4 mg SUBLINGUAL Q5M PRN PRN Reason: Chest Pain Vitamin E (Dl,Tocopheryl Acet) [Vitamin E] 400 tab PO HS Docusate [Colace] 100 mg PO DAILY Ranitidine HCl [Zantac] 150 mg PO DAILY PRN PRN Reason: Heartburn Aspirin [Adult Low Dose Aspirin EC] 81 mg PO DAILY Albuterol Inhaler [Ventolin Hfa Inhaler] 2 puff INHALATION RT-Q4H PRN PRN Reason: Shortness Of Breath Warfarin [Coumadin] 7.5 mg PO MOWEFR Cholecalciferol [Vitamin D3] 1,000 unit PO BID Acetaminophen-Codeine 300-30mg [Tylenol w/codeine #3] 1 tab PO Q4H PRN #20 tablet PRN Reason: pain Carvedilol [Coreg] 6.25 mg PO BID Discharge Medication List Docusate [Colace] 100 mg PO DAILY 10/02/14 [History] Furosemide [Lasix] 20 mg PO DAILY PRN 10/02/14 [History] Irbesartan 150 mg PO DAILY 10/02/14 [History] Isosorbide Mononitrate ER [Imdur] 30 mg PO DAILY 10/02/14 [History] Loratadine [Claritin] 10 mg PO DAILY PRN 10/02/14 [History] Nitroglycerin Sl Tabs [Nitrostat] 0.4 mg SUBLINGUAL Q5M PRN 10/02/14 [History] [place]-3 Fatty Acids/Fish Oil [Fish Oil 1,000 mg Softgel] 1,000 mg PO BID [History] Ranitidine HCl [Zantac] 150 mg PO DAILY PRN 10/02/14 [History] Vitamin E (Dl,Tocopheryl Acet) [Vitamin E] 400 tab PO HS 10/02/14 [History] Warfarin [Coumadin] 5 mg PO SUTUTHSA 10/02/14 [History] Aspirin [Adult Low Dose Aspirin EC] 81 mg PO DAILY 01/13/16 [History] Albuterol Inhaler [Ventolin Hfa Inhaler] 2 puff INHALATION RT-Q4H PRN 06/11/16 [ History] Warfarin [Coumadin] 7.5 mg PO MOWEFR 06/11/16 [History] Acetaminophen-Codeine 300-30mg [Tylenol w/codeine #3] 1 tab PO Q4H PRN #20 tablet 10/05/16 [Rx] Cholecalciferol [Vitamin D3] 1,000 unit PO BID 10/05/16 [History] Carvedilol [Coreg] 6.25 mg PO BID 12/11/16 [History] Follow up Appointment(s)/Referral(s): Tahira Choudhury MD [Primary Care Provider] - 1-2 days Discharge Disposition: HOME SELF-CARE
--- NOTE | 2017-08-09 13:04 | NM ---
EXAMINATION TYPE: NM stress lexiscan cardiolite DATE OF EXAM: 08/09/2017 COMPARISON: 01/14/2016 HISTORY: 81-year-old female with chest pain TECHNIQUE: After the intravenous administration of 10.7 mCi Tc 99m Sestamibi - Cardiolite resting SP ECT images acquired 45 minutes post injection. The patient received 0.4mg Lexiscan, 27.4 mCi Tc 99m Sestamibi - Stress images obtained [address] injection FINDINGS: Review of stress and rest SPECT images demonstrates no distinct perfusion abnormality. Gated analysi s shows normal wall motion with an estimated left ventricular ejection fraction of 76 %. TID is calc ulated at 0.66, within normal limits. IMPRESSION: No scintigraphic evidence for reversible ischemia.
--- NOTE | 2017-08-09 14:22 | EST ---
EXERCISE STRESS AGE: 81 SEX: F HT: 63" WT: 180 PROTOCOL: Lexiscan Cardiolite Stress Test HEART RATE REST: 69 BLOOD PRESSURE REST: 145/61 MAXIMUM HEART RATE ACHIEVED: 107 MAXIMUM BLOOD PRESSURE: 162/76 85% MPHR: 118 100% MPHR: 139 INDICATIONS: Chest pain. CLINICAL INFORMATION: Baseline rhythm is atrial fibrillation, rate of 69, normal axis and intervals. Mild nonspecific ST-T wave changes. Baseline blood pressure 145/61 mmHg. The patient received an injection of Lexiscan. Electrocardiograph monitoring revealed occasional PVCs. There was no evidence of diagnostic ischemic ST deviation. Cardiolite was injected per protocol. CONCLUSION: 1. Nondiagnostic electrocardiographic stress testing. 2. Nuclear images will be reported separately. MMODL / IJN: [id number] /
[2017-08-09] MEDS ORDERED: WARFARIN 5 MG TAB PO SCH ×2 (18:00)
== END 2017-08-09 14:30 | disposition home or self-care (01) ==
LOC: EC 21:22 → 3OBS 23:20
PROVIDERS: ADMIT Internal Medicine; ATTEND Internal Medicine
DX: R07.89 Other chest pain (principal); I48.1 Persistent atrial fibrillation; I11.0 Hypertensive heart disease with heart failure; I50.9 Heart failure, unspecified; K21.9 Gastro-esophageal reflux disease without esophagitis; J45.909 Unspecified asthma, uncomplicated; I73.9 Peripheral vascular disease, unspecified; E78.5 Hyperlipidemia, unspecified; M81.0 Age-related osteoporosis without current pathological fracture; M19.90 Unspecified osteoarthritis, unspecified site; Z79.01 Long term (current) use of anticoagulants; Z79.82 Long term (current) use of aspirin; Z79.899 Other long term (current) drug therapy; Z88.4 Allergy status to anesthetic agent; Z88.8 Allergy status to other drugs, medicaments and biological substances; Z87.891 Personal history of nicotine dependence; Z86.73 Personal history of transient ischemic attack (TIA), and cerebral infarction without residual deficits; Z87.19 Personal history of other diseases of the digestive system; Z86.69 Personal history of other diseases of the nervous system and sense organs; Z82.49 Family history of ischemic heart disease and other diseases of the circulatory system; Z80.0 Family history of malignant neoplasm of digestive organs
CPT/HCPCS: 36415; 93005; 93017; 80061; 80053; 82150; 82550 ×2; 82553 ×2; 83690; 83735; 84484 ×2; 85025; 85610; 85730; 71046; 78452; 99285; G0378 ×2; A9500; J2785

== ENCOUNTER → 2017-10-12 | Outpatient (CLI) | payer MEDICARE ==
--- NOTE | 2017-10-14 09:01 | MM ---
Reason for exam: screening (asymptomatic). Last mammogram was performed 1 year and 1 month ago. History: Patient is postmenopausal. Benign US breast aspiration single LT of the left breast, October 10, 2014. Benign US breast localization LT, October 02, 2014. Benign left breast aspiration of the left breast, February 05, 2012. Excisional biopsy of the left breast, September 26, 2007. Physical Findings: A clinical breast exam by your physician is recommended on an annual basis and results should be correlated with mammographic findings. MG 3D Screening Mammo W/Cad Bilateral CC and MLO view(s) were taken. Prior study comparison: September 23, 2016, bilateral MG 3d screening mammo w/cad. September 04, 2015, bilateral MG 3d diag mammo w/cad [facility]. There is chronic nodularity bilaterally. Stable distortion left breast. No significant changes when compared with prior studies. ASSESSMENT: Benign, BI-RAD 2 RECOMMENDATION: Routine screening mammogram of both breasts in 1 year.
== END | disposition home or self-care (01) ==
LOC: RADMAMWWP 13:25
PROVIDERS: ATTEND Family Medicine
DX: Z12.31 Encounter for screening mammogram for malignant neoplasm of breast (principal)
CPT/HCPCS: 77063; 77067

== ENCOUNTER 2018-06-08 21:32 | Inpatient (IN) | payer MEDICARE ==
--- NOTE | 2018-06-08 21:48 | ED ---
General Adult HPI - General Chief complaint: Neuro Symptoms/Deficit Stated complaint: Confusion, blurry vision, hx of mini craven Time Seen by Provider: 06/08/18 21:47 Source: patient Mode of arrival: wheelchair Limitations: altered mental status - History of Present Illness Initial comments: Divya is an 82-year-old female with extensive past medical history presents the emergency department today for evaluation of speech difficulty. Patient reports that around 8 PM she start feeling unwell, she called her daughter who advised her to check her blood pressure. She then called her daughter back but was unable to express to her what she was experiencing. Daughter reports that her mother was having some garbled speech and difficulty. This is similar to patient's previous TIAs therefore daughter decided to bring her to the hospital for further evaluation. Patient reports that she just feels tired, she recalls the period in which she was having trouble speaking but reports that that has all resolved. She complains of chronic back pain and a mild headache but no other acute complaints. The patient and daughter report that the patient has been followed by her underwriting account representative who has concern that the patient may have vegetations on her heart valve and is scheduled for an outpatient [facility] on June 30 to evaluate for possible endocarditis. - Related Data Home Medications Medication Instructions Recorded Confirmed RX: Docusate [Colace] 100 mg PO DAILY 10/02/14 06/08/18 RX: Furosemide [Lasix] 20 mg PO DAILY PRN 10/02/14 06/08/18 RX: Isosorbide Mononitrate ER 30 mg PO DAILY 10/02/14 06/08/18 [Imdur] RX: Loratadine [Claritin] 10 mg PO DAILY PRN 10/02/14 06/08/18 RX: Nitroglycerin Sl Tabs 0.4 mg SUBLINGUAL Q5M PRN 10/02/14 06/08/18 [Nitrostat] RX: [place]-3 Fatty Acids/Fish Oil 2 mg PO DAILY 10/02/14 06/08/18 [Fish Oil 1,000 mg Softgel] RX: Ranitidine HCl [Zantac] 150 mg PO HS 10/02/14 06/08/18 RX: Vitamin E (Dl,Tocopheryl Acet) 400 unit PO DAILY 10/02/14 06/08/18 [Vitamin E] RX: Warfarin [Coumadin] 5 mg PO AC-SUPPER 10/02/14 06/08/18 RX: Aspirin [Adult Low Dose 81 mg PO DAILY 01/13/16 06/08/18 Aspirin EC] RX: Albuterol Inhaler [Ventolin 2 puff INHALATION RT-Q4H PRN 06/11/16 06/08/18 Hfa Inhaler] RX: Cholecalciferol [Vitamin D3] 2,000 unit PO DAILY 10/05/16 06/08/18 RX: Carvedilol [Coreg] 6.25 mg PO BID 12/11/16 06/08/18 RX: Irbesartan 75 mg PO HS 06/08/18 06/08/18 RX: Vitamin B Complex 1 cap PO DAILY 06/08/18 06/08/18 Allergies Allergy/AdvReac Type Severity Reaction Status Date / Time benazepril HCl Allergy Wheezing Verified 06/08/18 22:36 [From Lotensin] fluticasone Allergy mouth sores Verified 06/08/18 22:36 [From Advair Diskus] gemfibrozil [From Lopid] Allergy Rash/Hives Verified 06/08/18 22:36 metoprolol [From Lopressor] Allergy Hallucinati Verified 06/08/18 22:36 ons montelukast Allergy peeling Verified 06/08/18 22:36 skin and rash/CONFUSION salmeterol Allergy mouth sores Verified 06/08/18 22:36 [From Advair Diskus] sulfamethoxazole Allergy Swelling Verified 06/08/18 22:36 [From Bactrim] trimethoprim [From Bactrim] Allergy Swelling Verified 06/08/18 22:36 amlodipine besylate AdvReac Swelling Verified 06/08/18 22:36 [From Norvasc] atorvastatin calcium AdvReac Nausea & Verified 06/08/18 22:36 [From Lipitor] Vomiting esomeprazole magnesium AdvReac Cough Verified 06/08/18 22:36 [From Nexium] pravastatin AdvReac MUSCLE Verified 06/08/18 22:36 PAIN AND STOMACH CRAMPS procaine HCl [From Novocain] AdvReac JITTERY Verified 06/08/18 22:36 Review of Systems ROS Statement: Those systems with pertinent positive or pertinent negative responses have been documented in the HPI. ROS Other: All systems not noted in ROS Statement are negative. Past Medical History Past Medical History: Atrial Fibrillation, Asthma, Coronary Artery Disease (CAD) , Heart Failure, CVA/TIA, GERD/Reflux, GI Bleed, Hyperlipidemia, Hypertension, Pneumonia Additional Past Medical History / Comment(s): osteoporsis, hx migraines, TIA- no effects, swelling in ankles(left worse), hx ulcer, hiatal hernia, arthritis, History of Any Multi-Drug Resistant Organisms: None Reported Past Surgical History: Breast Surgery, Cholecystectomy, Heart Catheterization, Hysterectomy, Tonsillectomy Additional Past Surgical History / Comment(s): left breast biopsies, left breat cyst removed, left carotid endarterectomy, bilateral cataract, Past Anesthesia/Blood Transfusion Reactions: Motion Sickness Past Psychological History: No Psychological Hx Reported Smoking Status: Former smoker Past Alcohol Use History: None Reported Past Drug Use History: None Reported - Past Family History Son(s) Family Medical History: Cancer Additional Family Medical History / Comment(s): heart valve replacement, colon CA, heart murmur, heart failure since been resolved Mother Family Medical History: Coronary Artery Disease (CAD), Myocardial Infarction ([place] ) Father Family Medical History: CVA/TIA, Hypertension, Myocardial Infarction (MD) General Exam - General Exam Comments Initial Comments: Physical Exam GENERAL: Patient is well-developed and well-nourished. Patient is nontoxic and well-hydrated and is in no distress. HENT: Normocephalic, Atraumatic. EYES: PERRL, EOMI PULMONARY: Unlabored respirations. No audible rales rhonchi or wheezing was noted. CARDIOVASCULAR: There is a regular rate and rhythm Systolic murmur ABDOMEN: Soft and nontender with normal bowel sounds. SKIN: Skin is clear with no lesions or rashes and otherwise unremarkable. : Deferred NEUROLOGIC: Patient is alert and oriented x3. Roman nerves II through XII grossly intact Moving all extremities spontaneously NIH-0 MUSCULOSKELETAL: Normal extremities with adequate strength and full range of motion. No lower extremity swelling or edema. No calf tenderness. PSYCHIATRIC: Normal psychiatric evaluation. Limitations: no limitations Limitations: altered mental status Course Vital Signs 06/08/18 06/08/18 21:36 22:40 Temperature 97.8 F Pulse Rate 95 75 Respiratory 18 18 Rate Blood Pressure 157/97 126/92 O2 Sat by Pulse 98 99 Oximetry EKG Findings - EKG Comments: EKG Findings:: EKG obtained at 10:45 PM, rate is 83, rhythm is atrial fibrillation, no acute ST elevations or depressions no evidence of acute ischemia or infarction. Patient has history of A. fib. Medical Decision Making - Medical Decision Making The patient was seen and evaluated, history is obtained from the patient as well as family at bedside Patient with a history of TIAs in the past had approximately one hour of speech difficulty prior to arrival, upon arrival symptoms have resolved, NIH is 0 Stroke workup was ordered CT head with no acute findings, chronic aging changes, chronic atrophy Labs with no significant abnormalities I have high suspicion that the patient has had a TIA, I do feel the patient warrants admission to the hospital for further monitoring. Patient care was discussed with Dr. Villa who accepts the admission - Lab Data Result diagrams: 06/08/18 22:00 06/08/18 22:00 Lab Results 06/08/18 06/08/18 06/08/18 Range/Units 22:00 22:00 22:00 WBC 6.1 (3.8-10.6) k/uL RBC 4.29 (3.80-5.40) m/uL Hgb 12.8 (11.4-16.0) gm/dL Hct 38.8 (34.0-46.0) % MCV 90.4 (80.0-100.0) fL MCH 29.9 (25.0-35.0) pg MCHC 33.1 (31.0-37.0) g/dL RDW 13.6 (11.5-15.5) % Plt Count 177 (150-450) k/uL Neutrophils % 59 % Lymphocytes % 24 % Monocytes % 9 % Eosinophils % 4 % Basophils % 0 % Neutrophils # 3.6 (1.3-7.7) k/uL Lymphocytes # 1.5 (1.0-4.8) k/uL Monocytes # 0.6 (0-1.0) k/uL Eosinophils # 0.3 (0-0.7) k/uL Basophils # 0.0 (0-0.2) k/uL PT (9.0-12.0) sec INR (<1.2) APTT (22.0-30.0) sec Sodium 142 (137-145) mmol/L Potassium 4.1 (3.5-5.1) mmol/L Chloride 106 (98-107) mmol/L Carbon Dioxide 28 (22-30) mmol/L Anion Gap 8 mmol/L BUN 24 H (7-17) mg/dL Creatinine 0.95 (0.52-1.04) mg/dL Est GFR (CKD-EPI)AfAm 65 (>60 ml/min/1.73 sqM) Est GFR (CKD-EPI)NonAf 56 (>60 ml/min/1.73 sqM) Glucose 118 H (74-99) mg/dL Calcium 9.3 (8.4-10.2) mg/dL Total Bilirubin 0.3 (0.2-1.3) mg/dL AST 30 (14-36) U/L ALT 26 (9-52) U/L Alkaline Phosphatase 101 (38-126) U/L Total Creatine Kinase 98 (30-135) U/L CK-MB (CK-2) 2.1 (0.0-2.4) ng/mL CK-MB (CK-2) Rel Index 2.1 Troponin I <0.012 (0.000-0.034) ng/mL Total Protein 7.0 (6.3-8.2) g/dL Albumin 3.9 (3.5-5.0) g/dL 06/08/18 Range/Units 22:00 WBC (3.8-10.6) k/uL RBC (3.80-5.40) m/uL Hgb (11.4-16.0) gm/dL Hct (34.0-46.0) % MCV (80.0-100.0) fL MCH (25.0-35.0) pg MCHC (31.0-37.0) g/dL RDW (11.5-15.5) % Plt Count (150-450) k/uL Neutrophils % % Lymphocytes % % Monocytes % % Eosinophils % % Basophils % % Neutrophils # (1.3-7.7) k/uL Lymphocytes # (1.0-4.8) k/uL Monocytes # (0-1.0) k/uL Eosinophils # (0-0.7) k/uL Basophils # (0-0.2) k/uL PT 19.5 H (9.0-12.0) sec INR 2.0 H (<1.2) APTT 34.3 H (22.0-30.0) sec Sodium (137-145) mmol/L Potassium (3.5-5.1) mmol/L Chloride (98-107) mmol/L Carbon Dioxide (22-30) mmol/L Anion Gap mmol/L BUN (7-17) mg/dL Creatinine (0.52-1.04) mg/dL Est GFR (CKD-EPI)AfAm (>60 ml/min/1.73 sqM) Est GFR (CKD-EPI)NonAf (>60 ml/min/1.73 sqM) Glucose (74-99) mg/dL Calcium (8.4-10.2) mg/dL Total Bilirubin (0.2-1.3) mg/dL AST (14-36) U/L ALT (9-52) U/L Alkaline Phosphatase (38-126) U/L Total Creatine Kinase (30-135) U/L CK-MB (CK-2) (0.0-2.4) ng/mL CK-MB (CK-2) Rel Index Troponin I (0.000-0.034) ng/mL Total Protein (6.3-8.2) g/dL Albumin (3.5-5.0) g/dL Disposition Clinical Impression: TIA (transient ischemic attack) Disposition: ADMITTED IP TO THIS HOSP Condition: Serious Is patient prescribed a controlled substance at d/c from ED?: No Referrals: Tahira Choudhury MD [Primary Care Provider] - 1-2 days
[2018-06-08] MEDS ORDERED: SODIUM CHLORIDE 0.9% 1,000 ML IV STA (21:51)
--- NOTE | 2018-06-08 22:23 | CT ---
EXAMINATION TYPE: CT brain wo con DATE OF EXAM: 06/08/2018 COMPARISON: 06/11/2016 HISTORY: Confusion CT DLP: mGycm Automated exposure control for dose reduction was used. FINDINGS: There is cerebral cortical atrophy. There is no mass effect nor midline shift. There is no sign of in tracranial hemorrhage. Calvarium is intact. IMPRESSION: CEREBRAL ATROPHY. NO ACUTE INTRACRANIAL ABNORMALITY.No change. Mild hydrocephalus.
--- NOTE | 2018-06-08 22:24 | XR ---
EXAMINATION TYPE: XR chest 2V DATE OF EXAM: 06/08/2018 COMPARISON: 08/08/2017 HISTORY: Altered mental status TECHNIQUE: Frontal and lateral views of the chest are obtained. FINDINGS: There is no heart failure nor confluent pneumonic infiltrate. Heart appears slightly enlar ged. There is no pleural effusion. There are chest leads. There is osteopenia and some compression de formity of the lower thoracic vertebra. IMPRESSION: Mild cardiomegaly. No active cardiopulmonary disease. No significant change.
[2018-06-08 22:29] LABS: Basophils % (A) 0 %; Eosinophils # (A) 0.3 k/uL (0-0.7); Eosinophils % (A) 4 %; HCT 38.8 % (34.0-46.0); HGB 12.8 gm/dL (11.4-16.0); Lymphocytes # (A) 1.5 k/uL (1.0-4.8); Lymphocytes % (A) 24 %; MCH 29.9 pg (25.0-35.0); MCHC 33.1 g/dL (31.0-37.0); MCV 90.4 fL (80.0-100.0); Mean Platelet Volume 8.1; Monocytes # (A) 0.6 k/uL (0-1.0); Monocytes % (A) 9 %; Neutrophils # (A) 3.6 k/uL (1.3-7.7); Neutrophils % (A) 59 %; Platelet Count 177 k/uL (150-450); RBC 4.29 m/uL (3.80-5.40); RDW 13.6 % (11.5-15.5); WBC 6.1 k/uL (3.8-10.6)
[2018-06-08 22:38] LABS: Partial Thromboplastin Time 34.3 sec (22.0-30.0); Prothrombin Time 19.5 sec (9.0-12.0)
[2018-06-08 22:44] LABS: Albumin 3.9 g/dL (3.5-5.0); Calcium 9.3 mg/dL (8.4-10.2); Potassium 4.1 mmol/L (3.5-5.1); Total Bilirubin 0.3 mg/dL (0.2-1.3)
[2018-06-08 22:49] LABS: Creatine Kinase 98 U/L (30-135)
[2018-06-08 23:02] LABS: Creatine Kinase MB 2.1 ng/mL (0.0-2.4); Troponin I <0.012 ng/mL (0.000-0.034)
[2018-06-08] MEDS ORDERED: NALOXONE 0.4 MG/ML 1 ML VIAL IV PRN (23:15)
[2018-06-08] MEDS ORDERED: ALBUTEROL NEBULIZED 2.5 MG/3 ML INHALATION PRN (23:17)
[2018-06-09] MEDS ORDERED: FAMOTIDINE 20 MG TAB PO STA (00:42)
[2018-06-09] MEDS ORDERED: CARVEDILOL 6.25 MG TAB PO STA (04:11)
[2018-06-09] MEDS ORDERED: FUROSEMIDE 20 MG TAB PO PRN (09:00)
[2018-06-09] MEDS: CARVEDILOL 6.25 MG TAB PO SCH ×2 (09:39→16:39)
[2018-06-09] MEDS: ISOSORBIDE MONONITRATE ER 30 MG TAB.ER.24H PO SCH (09:39)
[2018-06-09 09:47] LABS: INR 2.3 (<1.2); Prothrombin Time 22.4 sec (9.0-12.0)
[2018-06-09 09:50] LABS: Basophils % (A) 0 %; Eosinophils # (A) 0.2 k/uL (0-0.7); Eosinophils % (A) 3 %; HCT 37.5 % (34.0-46.0); HGB 12.2 gm/dL (11.4-16.0); Lymphocytes # (A) 1.4 k/uL (1.0-4.8); Lymphocytes % (A) 23 %; MCH 29.9 pg (25.0-35.0); MCHC 32.5 g/dL (31.0-37.0); Monocytes # (A) 0.4 k/uL (0-1.0); Monocytes % (A) 7 %; Neutrophils # (A) 3.8 k/uL (1.3-7.7); Neutrophils % (A) 63 %; Platelet Count 175 k/uL (150-450); RBC 4.08 m/uL (3.80-5.40); RDW 13.7 % (11.5-15.5); WBC 6.2 k/uL (3.8-10.6)
[2018-06-09 10:25] LABS: Albumin 3.6 g/dL (3.5-5.0); Calcium 8.7 mg/dL (8.4-10.2); Potassium 4.4 mmol/L (3.5-5.1); Total Bilirubin 0.7 mg/dL (0.2-1.3); Total Protein 6.4 g/dL (6.3-8.2)
[2018-06-09 10:36] VITALS: BMI 31.4
[2018-06-09] MEDS ORDERED: LORATADINE 10 MG TAB PO PRN (11:20)
[2018-06-09] MEDS ORDERED: LOSARTAN 50 MG TAB PO STA (11:29)
[2018-06-09] MEDS: ASPIRIN 81 MG PO SCH (11:41)
--- NOTE | 2018-06-09 11:42 | P.HPIM ---
History of Present Illness H&P Date: 06/09/18 Chief Complaint: TIA This is an 82-year-old female patient of Dr. Choudhury. Patient presented with complaints of blurry vision and slurred speech. She states symptoms started around 8 PM last night. Patient called daughter and the daughter reported at that time her mother was expressing some garbled speech difficulty decided to bring him to the hospital for further evaluation. Patient has medical history includes atrial fibrillation which she is maintained on Coumadin. Additional medical history includes asthma, CAD, heart failure, CVA, GERD, GI bleed, hyperlipidemia, hypertension, pneumonia, history of TIAs, left breast biopsy and ex-smoker. Patient and daughter also reports that she's been followed by her director of residence life Dr. Wilcox with concerns of vegetation of one of her heart valves been scheduled for [facility] in June. EKG completed showing atrial fibrillation with a heart rate of 83. Cardiology services has been consulted. Chest x-ray completed showing mild cardiomegaly. No active cardiopulmonary disease. No significant change. Head CT completed showing cerebral atrophy. No acute intracranial abnormality. No change. Mild hydrocephalus. Neurology services have been consulted. 2-D echo and carotid Doppler ultrasound ordered. At this time patient states symptoms have completely resolved. Daughter currently at bedside. Patient also requesting to be a no code per advanced directive. Patient denies chest pain or shortness of breath. Patient denies nausea vomiting or diarrhea. Patient denies urinary burning or frequency. Patient also denies any fevers or muscle aches and chills. Review of Systems Please refer to HPI otherwise unremarkable Past Medical History Past Medical History: Atrial Fibrillation, Asthma, Coronary Artery Disease (CAD) , Heart Failure, CVA/TIA, GERD/Reflux, GI Bleed, Hyperlipidemia, Hypertension, Pneumonia Additional Past Medical History / Comment(s): osteoporsis, hx migraines, TIA- no effects, swelling in ankles(left worse), hx ulcer, hiatal hernia, arthritis, History of Any Multi-Drug Resistant Organisms: None Reported Past Surgical History: Breast Surgery, Cholecystectomy, Heart Catheterization, Hysterectomy, Tonsillectomy Additional Past Surgical History / Comment(s): left breast biopsies, left breat cyst removed, left carotid endarterectomy, bilateral cataract surgery Past Anesthesia/Blood Transfusion Reactions: Motion Sickness Past Psychological History: No Psychological Hx Reported Smoking Status: Former smoker Past Alcohol Use History: None Reported Additional Past Alcohol Use History / Comment(s): quit smoking 50 yrs ago, smoked for 3 yrs, 1 pack/week Past Drug Use History: None Reported - Past Family History Son(s) Family Medical History: Cancer Additional Family Medical History / Comment(s): heart valve replacement, colon CA, heart murmur, heart failure since been resolved Mother Family Medical History: Coronary Artery Disease (CAD), Myocardial Infarction ([place] ) Father Family Medical History: CVA/TIA, Hypertension, Myocardial Infarction ([place]) Medications and Allergies Home Medications Medication Instructions Recorded Confirmed Type Docusate [Colace] 100 mg PO DAILY 10/02/14 06/08/18 History Furosemide [Lasix] 20 mg PO DAILY PRN 10/02/14 06/08/18 History Isosorbide Mononitrate ER [Imdur] 30 mg PO DAILY 10/02/14 06/08/18 History Loratadine [Claritin] 10 mg PO DAILY PRN 10/02/14 06/08/18 History Nitroglycerin Sl Tabs [Nitrostat] 0.4 mg SUBLINGUAL Q5M PRN 10/02/14 06/08/18 History [place]-3 Fatty Acids/Fish Oil [Fish 2 mg PO DAILY 10/02/14 06/08/18 History Oil 1,000 mg Softgel] Ranitidine HCl [Zantac] 150 mg PO HS 10/02/14 06/08/18 History Vitamin E (Dl,Tocopheryl Acet) 400 unit PO DAILY 10/02/14 06/08/18 History [Vitamin E] Warfarin [Coumadin] 5 mg PO AC-SUPPER 10/02/14 06/08/18 History Aspirin [Adult Low Dose Aspirin EC] 81 mg PO DAILY 01/13/16 06/08/18 History Albuterol Inhaler [Ventolin Hfa 2 puff INHALATION RT-Q4H PRN 06/11/16 06/08/18 History Inhaler] Cholecalciferol [Vitamin D3] 2,000 unit PO DAILY 10/05/16 06/08/18 History Carvedilol [Coreg] 6.25 mg PO BID 12/11/16 06/08/18 History Irbesartan 75 mg PO HS 06/08/18 06/08/18 History Vitamin B Complex 1 cap PO DAILY 06/08/18 06/08/18 History Allergies Allergy/AdvReac Type Severity Reaction Status Date / Time benazepril HCl Allergy Wheezing Verified 06/08/18 22:36 [From Lotensin] fluticasone Allergy mouth sores Verified 06/08/18 22:36 [From Advair Diskus] gemfibrozil [From Lopid] Allergy Rash/Hives Verified 06/08/18 22:36 metoprolol [From Lopressor] Allergy Hallucinati Verified 06/08/18 22:36 ons montelukast Allergy peeling Verified 06/08/18 22:36 skin and rash/CONFUSION salmeterol Allergy mouth sores Verified 06/08/18 22:36 [From Advair Diskus] sulfamethoxazole Allergy Swelling Verified 06/08/18 22:36 [From Bactrim] trimethoprim [From Bactrim] Allergy Swelling Verified 06/08/18 22:36 amlodipine besylate AdvReac Swelling Verified 06/08/18 22:36 [From Norvasc] atorvastatin calcium AdvReac Nausea & Verified 06/08/18 22:36 [From Lipitor] Vomiting esomeprazole magnesium AdvReac Cough Verified 06/08/18 22:36 [From Nexium] pravastatin AdvReac MUSCLE Verified 06/08/18 22:36 PAIN AND STOMACH CRAMPS procaine HCl [From Novocain] AdvReac JITTERY Verified 06/08/18 22:36 Physical Exam Vitals: Vital Signs Temp Pulse Pulse Resp BP BP Pulse Ox 06/09/18 09:00 84 153/92 97 06/09/18 08:00 112 H 18 147/93 95 06/09/18 07:00 84 17 151/96 94 L 06/09/18 06:10 67 19 145/94 98 06/09/18 06:00 83 17 143/88 98 06/09/18 05:00 75 18 147/93 97 06/09/18 04:00 103 H 18 150/94 97 06/09/18 03:01 81 17 158/105 99 06/09/18 02:00 82 19 158/116 99 06/09/18 00:46 87 18 148/92 95 06/08/18 23:56 97.9 F 95 16 131/69 95 06/08/18 22:40 75 18 126/92 99 06/08/18 22:00 71 97 06/08/18 21:36 97.8 F 95 18 157/97 98 Intake and Output 06/08/18 06/09/18 06/09/18 22:59 06:59 14:59 Other: Weight 81.647 kg 81.8 kg Head normocephalic Neck supple Lungs clear to auscultation bilaterally no wheezing or crackles Heart regular rate and rhythm S1-S2, no rub or gallop Abdomen is soft nontender nondistended positive bowel sounds no hepatosplenomegaly Extremities no edema Neuro alert and orientated to 3. No facial droop noted. Speech is clear. Patient's memory is intact. Equal strength throughout all extremities Results CBC & Chem 7: 06/09/18 09:08 06/09/18 09:08 Labs: Abnormal Lab Results - Last 24 Hours (Table) 06/08/18 06/08/18 06/09/18 Range/Units 22:00 22:00 09:08 PT 19.5 H 22.4 H (9.0-12.0) sec INR 2.0 H 2.3 H (<1.2) APTT 34.3 H (22.0-30.0) sec BUN 24 H (7-17) mg/dL Glucose 118 H (74-99) mg/dL 06/09/18 Range/Units 09:08 PT (9.0-12.0) sec INR (<1.2) APTT (22.0-30.0) sec BUN 20 H (7-17) mg/dL Glucose (74-99) mg/dL Thrombosis Risk Factor Assmnt - Choose All That Apply Each Risk Factor Represents 3 Points: Age 75 years or older Thrombosis Risk Factor Assessment Total Risk Factor Score: 3 Thrombosis Risk Factor Assessment Level: Moderate Risk Assessment and Plan Assessment: 1. Blurred vision and garbled speech possibly related to TIA. Head CT showing cerebral atrophy. No acute intracranial abnormality. No change. Mild hydrocephalus. 2-D echo and carotid Doppler ultrasound has been ordered. EKG showing atrial fibrillation which is not new for patient. Coumadin resumed per cardiology services. Neurology services have been consulted 2. Reported potential agitation of her heart valve. Per daughter patient scheduled for [facility] on June 30 for evaluation of possible endocarditis with Dr. Wilcox. Cardiology services have been consulted 3. Atrial fibrillation. Patient maintained on Coumadin for anticoagulation. INR 2.3 Coumadin has been resumed per cardiology services 4. History of TIA . No residuals noted 5. History of asthma. Chest x-ray completed showing cardiomegaly. No active cardiopulmonary disease. No significant change. 6. History of GERD\ 7. History of essential hypertension 8. History of pneumonia DVT prophylaxis Coumadin. GI prophylaxis Pepcid Neurology and cardiology services have been consulted A.m. labs ordered 2-D echo and Carotid Doppler ultrasound ordered Time with Patient: Greater than 30 (Greater than 60% of the total time spent in counseling and coordination of care. I performed an examination of the patient and discussed their management with the Nurse Practitioner. I have reviewed the Nurse Practitioner's notes and agree with the documented findings and plan of care)
--- NOTE | 2018-06-09 12:36 | US ---
EXAMINATION TYPE: US carotid duplex BILAT DATE OF EXAM: 06/09/2018 COMPARISON: US 2016 CLINICAL HISTORY: TIA. History of left endarectomy EXAM MEASUREMENTS: RIGHT: Peak Systolic Velocity (PSV) cm/sec ----- Right CCA: 31.2 ----- Right ICA: 142.0 ----- Right ECA: 622.7 ICA/CCA ratio: 4.5 RIGHT: End Diastole cm/sec ----- Right CCA: 13.5 ----- Right ICA: 66.1 ----- Right ECA: 148.1 LEFT: Peak Systolic Velocity (PSV) cm/sec ----- Left CCA: 113.8 ----- Left ICA: 113.8 ----- Left ECA: 106.0 ICA/CCA ratio: 1.0 LEFT: End Diastole cm/sec ----- Left CCA: 18.0 ----- Left ICA: 43.9 ----- Left ECA: 18.0 VERTEBRALS (direction of flow): Right Vertebral: Antegrade Left Vertebral: Antegrade Rhythm: Arrhythmia Grayscale images show severe plaque right carotid bulb occupying over 50% of the lumen. Increased latoya ocities noted in right internal and external carotid arteries just past bulb. Progression from 2016 i s felt present. Persistent mild peripheral plaque left carotid bulb is noted. Arrhythmia noted by technologist during real-time scanning. IMPRESSION: 1. Severe atherosclerotic change right carotid bulb, hemodynamically significant stenosis estimated greater than 70% is felt present in the right internal carotid artery. 2. Cardiac arrhythmia noted, if this is not known finding further investigation with Holter monitori ng would be advised. Criteria for Assigning % of Stenosis / Diameter reduction (Estimation based on the indirect measurements of the internal carotid artery velocities (ICA PSV). 1. Normal (no stenosis)=ICA PSV < 125 cm/s: ratio < 2.0: ICA EDV<40 cm/s. 2. Less than 50% stenosis=ICA PSV < 125 cm/s: ratio < 2.0: ICA EDV<40 cm/s. 3. 50 to 69% stenosis=ICA PSV of 125 to 230 cm/s: ration 2.0 ? 4.0: ICA EDV 40-100 cm/s. 4. Greater than 70% stenosis to near occlusion= ICA PSV > 230 cm/s: ratio > 4.0: ICA EDV > 100 cm/s. 5. Near occlusion= ICA PSV velocities may be low or undetectable: variable ratio and ICA EDV. 6. Total occlusion=unable to detect flow.
--- NOTE | 2018-06-09 12:40 | ECHOF ---
Referral Reason:possible endocarditis MEASUREMENTS -------- HEIGHT: 160.0 cm WEIGHT: 81.6 kg BP: 153/92 RVIDd: 3.0 cm (< 3.3) IVSd: 1.1 cm (0.6 - 1.1) LVIDd: 3.8 cm (3.9 - 5.3) LVPWd: 1.1 cm (0.6 - 1.1) IVSs: 1.3 cm LVIDs: 2.5 cm LVPWs: 1.4 cm LAESV Index (A-L): 36.41 ml/m Ao Diam: 3.2 cm (2.0 - 3.7) AV Cusp: 1.3 cm (1.5 - 2.6) LA Diam: 3.8 cm (2.7 - 3.8) EPSS: 0.5 cm RAP: 5.00 mmHg RVSP: 36.03 mmHg MV EF SLOPE: 108.76 mm/s (70 - 150) MV EXCURSION: 1.41 cm (> 18.000) FINDINGS -------- Atrial fibrillation. This was a technically adequate study. The left ventricular size is normal. There is borderline concentric left ventricular hypertrophy. Overall left ventricular systolic function is normal with, an EF between 55 - 60 %. The right ventricle is normal in size and function. LA is moderately dilated 34-39 ml/m2 The right atrium is markedly enlarged. There is moderate aortic valve sclerosis. There is no evidence of aortic regurgitation. There is no evidence of aortic stenosis. Echo dense mobile structure on aortic valve. Suspicious for vegetat ion. Mild mitral annular calcification present. Yhjr-fc-lvikekxa mitral regurgitation is present. Fcpk-qq-gsixwcym tricuspid regurgitation present. There is mild pulmonary hypertension. The right ventricular systolic pressure, as measured by Doppler, is 36.03mmHg. The pulmonic valve was not well visualized. The aortic root size is normal. Normal inferior vena cava with normal inspiratory collapse consistent with estimated right atrial pre ssure of 5 mmHg. There is no pericardial effusion. CONCLUSIONS -------- 1. Atrial fibrillation. 2. This was a technically adequate study. 3. The left ventricular size is normal. 4. There is borderline concentric left ventricular hypertrophy. 5. Overall left ventricular systolic function is normal with, an EF between 55 - 60 %. 6. LA is moderately dilated 34-39 ml/m2 7. The right atrium is markedly enlarged. 8. There is moderate aortic valve sclerosis. 9. Echo dense mobile structure on aortic valve. Suspicious for vegetation. 10. Mild mitral annular calcification present. 11. Jclt-vl-lqtljvaf mitral regurgitation is present. 12. Tmen-gk-fthfxkbd tricuspid regurgitation present. 13. There is mild pulmonary hypertension. 14. The pulmonic valve was not well visualized. 15. The aortic root size is normal. 16. There is no pericardial effusion. COMPUTER GAME PROGRAMMER: Nestor Trevino RDCS
[2018-06-09] MEDS ORDERED: WARFARIN 5 MG TAB PO SCH (17:30)
[2018-06-09] MEDS ORDERED: WARFARIN 3 MG TAB PO ONE (18:00)
[2018-06-09] MEDS: Acetaminophen-Codeine 300-30mg TAB PO PRN ×2 (18:00→23:08)
--- NOTE | 2018-06-09 18:15 | CONS ---
CONSULTATION This is an 82-year-old lady who sees Dr. Aranda in the outpatient setting. She is known to have a chronic atrial fibrillation for which she had a cardioversion years ago but she has since then been pretty much in atrial fibrillation and has been doing well with rate control and anticoagulation. However, apparently Dr. Aranda performed a transthoracic echo and there was a suspicion for a vegetation on the aortic valve and he was scheduled to do a CORAZON echo on June 30. However, she presented to the emergency room yesterday with complaints of having around 8:00 pm an episode of slurred speech, unable to express herself and this lasted almost an hour to hour and a half and this has completely resolved. She was brought into the hospital, had a CT scan which did not reveal any significant acute issues. At the time of my evaluation, patient's daughter is with her. She has recovered completely. Her speech is back to normal. Her comprehension and expression is also normal. She is doing well at this time. Transthoracic echo does reveal a suspicious area of vegetation. I spoke to Dr. Aranda and we will do a transesophageal echo tomorrow and he will perform that in the morning. She is not known to have any CAD. A previous cardiac cath was normal in 2004 and a recent Lexiscan stress test about 2 years ago was unremarkable for ischemia. Patient is not in any distress. She is resting comfortably and neurologically intact at this time. PAST MEDICAL HISTORY: 1. Chronic atrial fib. 2. Bronchial asthma. 3. History of known coronary artery disease. 4. Hypertension. 5. History of questionable transient ischemic attack in the past. She has a suspicious vegetation in the aortic valve and this is going to be looked at further. 6. She has history of hiatal hernia. 7. Arthritis. 8. She has had some cholecystectomy. 9. History of tonsillectomy. MEDICATIONS: At home include Imdur 30 mg daily, Lasix 20 mg daily. Ranitidine 150 mg daily, Coumadin 5 mg daily, aspirin 81 mg daily, Coreg 6.25 mg b.i.d. and she takes 75 mg daily. PHYSICAL EXAMINATION: Blood pressure is 140/80, pulse rate is about 70-80, irregular. HEENT: Unremarkable. Fundus was not examined by me. Neck is supple. There is no JVD. Heart exam reveals S1, S2 with a regular rhythm, short systolic murmur. Lungs are clear. Abdomen is soft, nontender. Lower extremities reveal palpable pulses, trace edema. Central nervous system is normal. EKG revealed atrial fibrillation, controlled ventricular rate and nonspecific ST-T changes. IMPRESSION: 1. Transient ischemic attack with complete resolution of speech issues with which she came in. 2. Hypertension. 3. Chronic atrial fibrillation, well anticoagulated with a INR of 2.3. 4. History of a questionable vegetation on aortic valve going to be clarified by transesophageal echo tomorrow. RECOMMENDATIONS: I am recommending that we resume her medications, optimize her blood pressure control and perform transesophageal echo tomorrow which Dr. Aranda will perform. Discussed my thoughts in detail with the patient and daughter. They understand and wish to proceed. MMTRUPTIL / IJN: [id number] /
[2018-06-09] MEDS: FAMOTIDINE 20 MG TAB PO SCH (20:13)
[2018-06-09] MEDS ORDERED: LOSARTAN 50 MG TAB PO SCH (21:00)
[2018-06-09] MEDS ORDERED: LOSARTAN 25 MG TAB PO SCH (21:00)
--- NOTE | 2018-06-09 21:42 | CT ---
EXAMINATION TYPE: CT angio neck DATE OF EXAM: 06/09/2018 HISTORY: carotid stenosis COMPARISON: 09/15/2012 CT DLP: 345.9 mGycm. Automated Exposure Control for Dose Reduction was Utilized. TECHNIQUE: CTA scan of the neck is performed with IV Contrast, patient injected with 65 mL of Isovue 370, axial images are obtained, coronal and sagittal reformatted images are reviewed. Three-D recons tructed images are created on an independent workstation and reviewed. FINDINGS: There is normal branching pattern of the great vessels on the aortic arch. There is some atheromatous change at the aortic arch. There is patency of the subclavian arteries. There is patency of the comm on internal and external carotid arteries bilaterally. There is bilateral patency of the vertebral ar teries which are fairly symmetric. There is severe plaque formation at the origin of the right internal carotid artery and subtotal occl usion. The left internal carotid artery shows no evidence of hemodynamic stenosis. There is no eviden ce of carotid or vertebral artery aneurysm or dissection. There is patency of the vertebrobasilar artery system. There is arterial flow in the distal internal carotid arteries bilaterally. IMPRESSION: There is severe stenosis at the origin of the right internal carotid artery due to plaque formation and calcification. Luminal narrowing is estimated 90%. There is progression of the stenosi s compared to old exam. No evidence of hemodynamic stenosis of the left internal carotid artery.
--- NOTE | 2018-06-09 22:10 | CONS ---
CONSULTATION DATE OF CONSULTATION: 06/09/2018. CHIEF COMPLAINT: Transient ischemic attack. HISTORY OF PRESENT ILLNESS: Mrs Thomas is a pleasant 82-year-old, female who is being evaluated by the neurology service per the request of Dr. Villa for a transient ischemic attack. The patient was brought into [facility] emergency room after she had a sudden onset of speech difficulties and blurred vision. The patient's speech was described as garbled. At that time, she also developed a headache that was mainly in the occipital region bilaterally. Her symptoms lasted less than 2 hours and resolved spontaneously. She does have history of atrial fibrillation and does take Coumadin at home. On arrival, her INR was 2.0 and a repeat INR at the time of my evaluation, was 2.3. Her blood pressure was elevated at the time of evaluation in the emergency room at 158/116. Her blood pressure is now 140/74. At the time of my evaluation, she is sitting in her bed and appears to be in no acute distress. She denies any recurrence of any neurological symptoms. She is complaining of low back pain and middle back pain which she states is chronic. A CT scan of the brain was done, which showed generalized atrophy and mild hydrocephalus and this was unchanged when compared to her 2016 study. Her carotid Doppler showed evidence of stenosis involving the right internal carotid artery, measuring greater than 70%. Her CBC, cardiac enzymes normal. PAST MEDICAL HISTORY: Atrial fibrillation, asthma, coronary artery disease, heart failure, history of transient ischemic attacks, gastroesophageal reflux disease, dyslipidemia, hypertension, migraine headaches, osteoporosis, hiatal hernia, arthritis, history of gastric ulcer with GI bleeding, history of cholecystectomy, heart catheterization, hysterectomy, tonsillectomy, cataract surgery, left breast biopsy, left carotid endarterectomy. SOCIAL HISTORY: The patient is a former smoker. She denies any alcohol or drug use. FAMILY HISTORY: Positive for hypertension, strokes, heart disease. HOME MEDICATIONS: Reviewed in the chart. ALLERGIES: LOTENSIN, ADVAIR, LOPID, LOPRESSOR, MONTELUKAST, BACTRIM, NORVASC, LIPITOR, NEXIUM, PRAVASTATIN, NOVOCAIN. REVIEW OF SYSTEMS: CONSTITUTIONAL: Negative. EYES: As mentioned above. ENT: Negative. CARDIOVASCULAR: As mentioned above. RESPIRATORY: Negative. NEUROLOGICAL: As mentioned above. GASTROINTESTINAL: Positive for occasional heartburn. GENITOURINARY: Negative. PSYCHIATRIC: Negative. MUSCULOSKELETAL: As mentioned above. DERMATOLOGICAL: Negative. ENDOCRINE: Negative. PHYSICAL EXAM: Vital signs show a temperature of 97.4, pulse 83, respiration 18, blood pressure 140/74. GENERAL APPEARANCE: The patient is a well-developed, elderly female, who appears to be in no acute distress. HEENT: Normocephalic, atraumatic. No facial asymmetry is seen. NECK: Supple with no masses felt. CARDIOVASCULAR: Irregularly irregular rhythm with a normal rate. ABDOMEN: Nontender, nondistended. Extremities showed no edema or clubbing. Neurological exam: The patient is awake and oriented x3. Speech and language are normal. Strength is full in all 4 extremities. Sensory exam was normal to light touch in all 4 extremities. No tremors or seizure- like activity is seen. No facial asymmetry is noticed on cranial nerve testing. IMPRESSION: 1. Transient ischemic attack. 2. Dysarthria, resolved. 3. Atrial fibrillation. 4. Carotid stenosis. 5. Hypertension. 6. Headache. 7. Chronic low back pain. RECOMMENDATION: The patient does appear to have suffered a transient ischemic attack with a transient episode of dysarthria and visual changes. She is already on Coumadin and her INR is therapeutic. She does have history of chronic atrial fibrillation. Her carotid Doppler did show evidence of high-grade stenosis on the right side. I will order a CT angiogram of the neck. I will also order a fasting lipid panel, and serum homocystine level. Continue Coumadin at current dose. As for her headache, this was likely related to her elevated blood pressure. I do recommend adjusting her hypertension medication. Further outpatient neurological workup will be ordered. Continue the rest of your current workup and management. I will continue to follow with you. Further recommendations to follow. Thank you for allowing me to participate in the care of your patient. If you have any questions, please feel free to contact me. MMTRUPTIL / IJN: [id number] /
[2018-06-10 04:03] LABS: Appearance,Urine Clear (Clear); Bilirubin,Urine Negative (Negative); Blood,Urine Moderate (Negative); Color,Urine Yellow; Glucose,Urine (UA) Negative (Negative); Ketones,Urine Negative (Negative); Leukocyte Esterase,Urine Small (Negative); Mucus,Urine Rare /hpf; Nitrite,Urine Negative (Negative); Protein,Urine Negative (Negative); RBC,Urine 17 /hpf (0-5); Specific Gravity,Urine 1.012 (1.001-1.035); Squamous Epithelial Cell,Urine 2 /hpf (0-4); Urobilinogen,Urine <2.0 mg/dL (<2.0); WBC,Urine 1 /hpf (0-5)
[2018-06-10 06:25] LABS: Basophils % (A) 0 %; Eosinophils # (A) 0.3 k/uL (0-0.7); Eosinophils % (A) 5 %; HCT 40.1 % (34.0-46.0); HGB 13.3 gm/dL (11.4-16.0); Lymphocytes % (A) 30 %; MCH 30.8 pg (25.0-35.0); MCHC 33.1 g/dL (31.0-37.0); Mean Platelet Volume 7.7; Monocytes # (A) 0.5 k/uL (0-1.0); Monocytes % (A) 8 %; Neutrophils # (A) 3.7 k/uL (1.3-7.7); Neutrophils % (A) 56 %; Platelet Count 196 k/uL (150-450); RBC 4.31 m/uL (3.80-5.40); RDW 13.6 % (11.5-15.5); WBC 6.6 k/uL (3.8-10.6)
[2018-06-10] MEDS: CARVEDILOL 6.25 MG TAB PO SCH ×2 (06:37→16:16)
--- NOTE | 2018-06-10 06:44 | P.GSCN ---
History of Present Illness Consult date: 06/09/18 Reason for Consult: Carotid stenosis History of present illness: 82 year old female whom presented to the hospital with complaints of garbled speech and vision changes lasting a little less than 2 hours consistent with TIA. She has had a carotid doppler and CTA which demonstrates greater than 70% stenosis of the right internal carotid artery. She has a history of afib and is currently on coumadin as treatment. She currently feels better and all symptoms have resolved. She denies any unilateral weakness, or facial droop. She states she has been seeing Dr. Aranda for vegetations on her valve and is scheduled for a CORAZON in the morning. Review of Systems - Constitutional Reports as per HPI - EENT Eyes: bilateral blurred vision Ears, nose, mouth and throat: Reports as per HPI - Cardiovascular Reports irregular heart beat, Denies lightheadedness, Denies rapid heart beat, Denies shortness of breath, Denies syncope - Respiratory Denies dyspnea - Gastrointestinal Denies nausea - Musculoskeletal Denies arm numbness/tingling, Denies leg numbness/tingling, Denies neck pain - Neurological Reports headaches, Denies ataxia, Denies confusion, Denies double vision Past Medical History Past Medical History: Atrial Fibrillation, Asthma, Coronary Artery Disease (CAD) , Heart Failure, CVA/TIA, GERD/Reflux, GI Bleed, Hyperlipidemia, Hypertension, Pneumonia Additional Past Medical History / Comment(s): osteoporsis, hx migraines, TIA- no effects, swelling in ankles(left worse), hx ulcer, hiatal hernia, arthritis, History of Any Multi-Drug Resistant Organisms: None Reported Past Surgical History: Breast Surgery, Cholecystectomy, Heart Catheterization, Hysterectomy, Tonsillectomy Additional Past Surgical History / Comment(s): left breast biopsies, left breat cyst removed, left carotid endarterectomy, bilateral cataract surgery Past Anesthesia/Blood Transfusion Reactions: Motion Sickness Past Psychological History: No Psychological Hx Reported Smoking Status: Former smoker Past Alcohol Use History: None Reported Additional Past Alcohol Use History / Comment(s): quit smoking 50 yrs ago, smoked for 3 yrs, 1 pack/week Past Drug Use History: None Reported - Past Family History Son(s) Family Medical History: Cancer Additional Family Medical History / Comment(s): heart valve replacement, colon CA, heart murmur, heart failure since been resolved Mother Family Medical History: Coronary Artery Disease (CAD), Myocardial Infarction ([place] ) Father Family Medical History: CVA/TIA, Hypertension, Myocardial Infarction ([place]) Medications and Allergies Home Medications Medication Instructions Recorded Confirmed Type Docusate [Colace] 100 mg PO DAILY 10/02/14 06/08/18 History Furosemide [Lasix] 20 mg PO DAILY PRN 10/02/14 06/08/18 History Isosorbide Mononitrate ER [Imdur] 30 mg PO DAILY 10/02/14 06/08/18 History Loratadine [Claritin] 10 mg PO DAILY PRN 10/02/14 06/08/18 History Nitroglycerin Sl Tabs [Nitrostat] 0.4 mg SUBLINGUAL Q5M PRN 10/02/14 06/08/18 History [place]-3 Fatty Acids/Fish Oil [Fish 2 mg PO DAILY 10/02/14 06/08/18 History Oil 1,000 mg Softgel] Ranitidine HCl [Zantac] 150 mg PO HS 10/02/14 06/08/18 History Vitamin E (Dl,Tocopheryl Acet) 400 unit PO DAILY 10/02/14 06/08/18 History [Vitamin E] Warfarin [Coumadin] 5 mg PO AC-SUPPER 10/02/14 06/08/18 History Aspirin [Adult Low Dose Aspirin EC] 81 mg PO DAILY 01/13/16 06/08/18 History Albuterol Inhaler [Ventolin Hfa 2 puff INHALATION RT-Q4H PRN 06/11/16 06/08/18 History Inhaler] Cholecalciferol [Vitamin D3] 2,000 unit PO DAILY 10/05/16 06/08/18 History Carvedilol [Coreg] 6.25 mg PO BID 12/11/16 06/08/18 History Irbesartan 75 mg PO HS 06/08/18 06/08/18 History Vitamin B Complex 1 cap PO DAILY 06/08/18 06/08/18 History Allergies Allergy/AdvReac Type Severity Reaction Status Date / Time benazepril HCl Allergy Wheezing Verified 06/08/18 22:36 [From Lotensin] fluticasone Allergy mouth sores Verified 06/08/18 22:36 [From Advair Diskus] gemfibrozil [From Lopid] Allergy Rash/Hives Verified 06/08/18 22:36 metoprolol [From Lopressor] Allergy Hallucinati Verified 06/08/18 22:36 ons montelukast Allergy peeling Verified 06/08/18 22:36 skin and rash/CONFUSION salmeterol Allergy mouth sores Verified 06/08/18 22:36 [From Advair Diskus] sulfamethoxazole Allergy Swelling Verified 06/08/18 22:36 [From Bactrim] trimethoprim [From Bactrim] Allergy Swelling Verified 06/08/18 22:36 amlodipine besylate AdvReac Swelling Verified 06/08/18 22:36 [From Norvasc] atorvastatin calcium AdvReac Nausea & Verified 06/08/18 22:36 [From Lipitor] Vomiting esomeprazole magnesium AdvReac Cough Verified 06/08/18 22:36 [From Nexium] pravastatin AdvReac MUSCLE Verified 06/08/18 22:36 PAIN AND STOMACH CRAMPS procaine HCl [From Novocain] AdvReac JITTERY Verified 06/08/18 22:36 Surgical - Exam Vital Signs Temp Pulse Resp BP Pulse Ox 97.8 F 95 18 157/97 98 06/08/18 21:36 06/08/18 21:36 06/08/18 21:36 06/08/18 21:36 06/08/18 21:36 - General well developed, well nourished, no distress - Eyes PERRL, normal ocular movement - ENT no hearing loss - Neck no masses, trachea midline - Respiratory normal expansion, normal respiratory effort, clear to auscultation - Cardiovascular irregular heart beat - Abdomen Abdomen: no distended - Neurologic normal coordination, normal sensation - Musculoskeletal normal posture - Psychiatric oriented to time, oriented to person, oriented to place, speech is normal No focal deficits, muscle strength equal, no tongue deviation or facial droop. Vascular exam: palpable PT pulses, radial pulses bilaterally. mild LE edema Results - Labs 06/09/18 09:08 06/09/18 09:08 Abnormal Lab Results - Last 24 Hours (Table) 06/09/18 06/09/18 06/09/18 Range/Units 09:08 09:08 14:35 PT 22.4 H (9.0-12.0) sec INR 2.3 H (<1.2) BUN 20 H (7-17) mg/dL Urine Blood Moderate H (Negative) Ur Leukocyte Esterase Small H (Negative) Urine RBC 17 H (0-5) /hpf Urine Mucus Rare H (None) /hpf Microbiology - Last 24 Hours (Table) 06/08/18 22:00 Blood Culture - Preliminary Blood No Growth after 24 hours Diabetes panel 06/09/18 Range/Units 09:08 Sodium 140 (137-145) mmol/L Potassium 4.4 (3.5-5.1) mmol/L Chloride 107 (98-107) mmol/L Carbon Dioxide 29 (22-30) mmol/L BUN 20 H (7-17) mg/dL Creatinine 0.98 (0.52-1.04) mg/dL Glucose 98 (74-99) mg/dL Calcium 8.7 (8.4-10.2) mg/dL AST 27 (14-36) U/L ALT 27 (9-52) U/L Alkaline Phosphatase 91 (38-126) U/L Total Protein 6.4 (6.3-8.2) g/dL Albumin 3.6 (3.5-5.0) g/dL Calcium panel 06/09/18 Range/Units 09:08 Calcium 8.7 (8.4-10.2) mg/dL Albumin 3.6 (3.5-5.0) g/dL Pituitary panel 06/09/18 Range/Units 09:08 Sodium 140 (137-145) mmol/L Potassium 4.4 (3.5-5.1) mmol/L Chloride 107 (98-107) mmol/L Carbon Dioxide 29 (22-30) mmol/L BUN 20 H (7-17) mg/dL Creatinine 0.98 (0.52-1.04) mg/dL Glucose 98 (74-99) mg/dL Calcium 8.7 (8.4-10.2) mg/dL Adrenal panel 06/09/18 Range/Units 09:08 Sodium 140 (137-145) mmol/L Potassium 4.4 (3.5-5.1) mmol/L Chloride 107 (98-107) mmol/L Carbon Dioxide 29 (22-30) mmol/L BUN 20 H (7-17) mg/dL Creatinine 0.98 (0.52-1.04) mg/dL Glucose 98 (74-99) mg/dL Calcium 8.7 (8.4-10.2) mg/dL Total Bilirubin 0.7 (0.2-1.3) mg/dL AST 27 (14-36) U/L ALT 27 (9-52) U/L Alkaline Phosphatase 91 (38-126) U/L Total Protein 6.4 (6.3-8.2) g/dL Albumin 3.6 (3.5-5.0) g/dL Assessment and Plan Assessment: Acute TIA Right ICA stenosis Atrial fibrillation Plan: Reviewed carotid doppler and CTA with the patient. Neuro recs appreciated. If deemed her TIA is from her right ICA stenosis then she will need intervention. We discussed options for intervention including open carotid endarterectomy, versus carotid stenting (traditional vs TCAR) depending on her surgical risk. Thank you for the consultation. Time with Patient: Greater than 30
[2018-06-10 06:47] LABS: Albumin 3.7 g/dL (3.5-5.0); Calcium 8.7 mg/dL (8.4-10.2); Potassium 4.2 mmol/L (3.5-5.1); Total Bilirubin 0.6 mg/dL (0.2-1.3); Total Protein 6.7 g/dL (6.3-8.2)
[2018-06-10] MEDS ORDERED: NON-FORMULARY DRUG (Vitamin B Complex [Vitamin B Complex] 1 CAP) PO SCH (09:00)
[2018-06-10] MEDS ORDERED: FATTY ACIDS PO SCH (09:00)
[2018-06-10] MEDS ORDERED: OMEGA PO SCH (09:00)
[2018-06-10] MEDS ORDERED: FISH OIL PO SCH (09:00)
--- NOTE | 2018-06-10 10:40 | P.PN ---
Subjective Progress Note Date: 06/10/18 This is an 82-year-old female patient of Dr. Choudhury. Patient presented with complaints of blurry vision and slurred speech. She states symptoms started around 8 PM last night. Patient called daughter and the daughter reported at that time her mother was expressing some garbled speech difficulty decided to bring him to the hospital for further evaluation. Patient has medical history includes atrial fibrillation which she is maintained on Coumadin. Additional medical history includes asthma, CAD, heart failure, CVA, GERD, GI bleed, hyperlipidemia, hypertension, pneumonia, history of TIAs, left breast biopsy and ex-smoker. Patient and daughter also reports that she's been followed by her special needs child caregiver Dr. Wilcox with concerns of vegetation of one of her heart valves been scheduled for CORAZON in June. EKG completed showing atrial fibrillation with a heart rate of 83. Cardiology services has been consulted. Chest x-ray completed showing mild cardiomegaly. No active cardiopulmonary disease. No significant change. Head CT completed showing cerebral atrophy. No acute intracranial abnormality. No change. Mild hydrocephalus. Neurology services have been consulted. 2-D echo and carotid Doppler ultrasound ordered. At this time patient states symptoms have completely resolved. Daughter currently at bedside. Patient also requesting to be a no code per advanced directive. Patient denies chest pain or shortness of breath. Patient denies nausea vomiting or diarrhea. Patient denies urinary burning or frequency. Patient also denies any fevers or muscle aches and chills. On 06/10/2018 patient is currently sitting up in bed. Neuro symptoms have completely resolved. Patient is alert and oriented 3. At this time patient will undergo CORAZON with Dr. Wilcox today for evaluation of possible valve vegetation. This time patient denies chest pain or shortness of breath. Patient denies nausea and diarrhea. Patient denies any urinary burning or frequency. Objective - Vital Signs Vital signs: Vital Signs Temp 97.5 F L 06/10/18 08:05 Pulse 89 06/10/18 08:05 Resp 18 06/10/18 08:05 BP 118/70 06/10/18 08:05 Pulse Ox 94 L 06/10/18 08:05 Intake & Output 06/09/18 06/10/18 06/10/18 18:59 06:59 18:59 Intake Total 420 300 Output Total 200 250 Balance 220 50 Weight 85.7 kg Intake: Intake, IV Titration 60 Amount Sodium Chloride 0.9% 1, 60 000 ml @ 100 mls/hr IV . Q10H STA Rx#:[id number] Oral 420 240 Output: Urine 200 250 Other: # Voids 1 1 - Exam Head normocephalic Neck supple Lungs clear to auscultation bilaterally no wheezing or crackles Heart regular rate and rhythm S1-S2, no rub or gallop Abdomen is soft nontender nondistended positive bowel sounds no hepatosplenomegaly Extremities no edema Neuro alert and orientated to 3. No facial droop noted. Speech is clear. Patient's memory is intact. Equal strength throughout all extremities - Labs CBC & Chem 7: 06/10/18 06:10 06/10/18 06:10 Labs: Abnormal Lab Results - Last 24 Hours (Table) 06/09/18 06/10/18 06/10/18 Range/Units 14:35 06:10 06:10 PT 20.0 H (9.0-12.0) sec INR 2.0 H (<1.2) BUN 22 H (7-17) mg/dL Cholesterol 220 H (<200) mg/dL LDL Cholesterol, Calc 132 H (0-99) mg/dL HDL Cholesterol 61 H (40-60) mg/dL Urine Blood Moderate H (Negative) Ur Leukocyte Esterase Small H (Negative) Urine RBC 17 H (0-5) /hpf Urine Mucus Rare H (None) /hpf Microbiology - Last 24 Hours (Table) 06/08/18 22:00 Blood Culture - Preliminary Blood No Growth after 24 hours Assessment and Plan Assessment: 1. Blurred vision and garbled speech possibly related to TIA. Head CT showing cerebral atrophy. No acute intracranial abnormality. No change. Mild hydrocephalus. 2-D echo and carotid Doppler ultrasound has been ordered. EKG showing atrial fibrillation which is not new for patient. Coumadin resumed per cardiology services. Per neurology services patient does appear to have suffered a transient ischemic attack with transient episode of dyspnea that he had visual changes. Fasting lipid panel and serum homocysteine level has been ordered. 2. Reported potential agitation of her heart valve. Per daughter patient scheduled for CORAZON on June 30 for evaluation of possible endocarditis with Dr. Wilcox. Cardiology services have been consulted. 2-D echo completed showing an EF between 55%and 60%. Patient will undergo CORAZON with Dr. Wilcox today 3. Atrial fibrillation. Patient maintained on Coumadin for anticoagulation. INR 2.3 Coumadin has been resumed per cardiology services 4. History of TIA . No residuals noted 5. History of asthma. Chest x-ray completed showing cardiomegaly. No active cardiopulmonary disease. No significant change. 6. History of GERD\ 7. History of essential hypertension 8. History of pneumonia 9. Hemodynamically significant stenosis in the right internal carotid artery. Ultrasound of the carotid Dopplers completed showing severe atherosclerotic change right carotid bulb, hemodynamically significant stenosis estimated greater than 70% is felt present in the right internal carotid artery. Dr. Vick has been consulted for vascular surgery. CT of the neck completed showing severe stenosis at the origin of the right internal carotid artery due to plaque formation and calcification. Luminal narrowing is estimated 90% there is progression of the stenosis compared to old exam no evidence of hemodynamic stenosis of the left internal carotid arteries. Per Dr. Vick options discussed with patient in regards to intervention including open carotid endarterectomy, versus carotid stenting. Patient states she will talk to her family and make a decision 10. Urinary analysis showing small amount of leukocyte Estrace. Patient remains asymptomatic. Urine culture has been ordered DVT prophylaxis Coumadin. GI prophylaxis Pepcid I performed an examination of the patient and discussed their management with the Nurse Practitioner. I have reviewed the Nurse Practitioner's notes and agree with the documented findings and plan of care
[2018-06-10] MEDS ORDERED: IV FLUID CONTINUATION 1,000 ML IV ONE (12:41)
[2018-06-10] MEDS ORDERED: fentaNYL (PF) 50 MCG/ML 2 ML AMP ONE (12:43)
[2018-06-10] MEDS ORDERED: MIDAZOLAM 2 MG/2 ML VIAL IV ONE (13:13)
[2018-06-10] MEDS ORDERED: fentaNYL (PF) 50 MCG/ML 2 ML AMP IV ONE (13:13)
[2018-06-10] MEDS ORDERED: BENZOCAINE SPRAY 1 CAN MUCOUS MEM ONE (13:13)
--- NOTE | 2018-06-10 13:58 | ECHOT ---
TRANSESOPHAGEAL ECHOCARDIOGRAM DATE OF SERVICE: 06/10/2018 PERFORMING PHYSICIAN: Silver Aranda MD, [employer]. INDICATION: This is a pleasant 82-year-old female patient who underwent recently transthoracic echocardiogram, showed possible vegetation on the aortic valve. She was admitted to the hospital with an episode of TIA. COMPLICATION: None. LEVEL OF SEDATION: Moderate sedation length of 10 minutes. PROCEDURE DESCRIPTION: After obtaining an informed consent, explaining the procedure, benefits, risks, complications and alternatives, the patient was brought to the transesophageal echocardiogram suite. A pulse oximetry and heart rate monitors were attached to the patient prior to the procedure. The patient's throat was sprayed using lidocaine locally. Following that, the patient was turned into left lateral position. A bite guard was placed and the patient was then sedated with the above doses of Versed and fentanyl in divided doses. Following that, the transesophageal echocardiogram probe was advanced through the bite guard into the mid esophagus where 2-D echocardiogram images as well as color Doppler images of various cardiac structures were obtained. We evaluated the interatrial septum using 2-D echocardiogram, color Doppler, and contrast study. The procedure was completed. There were no complications. FINDINGS: The left ventricular dimension and systolic function appeared to be within normal limits. The ejection fraction appeared to be about 55%. The right ventricle appeared to be within normal limits for dimension. Both right and left atrium are severely dilated. The left atrial appendage appeared to be free from any thrombus. The interatrial septum appeared to be intact. The aortic valve appeared to be trileaflet valve and seems to be very thickened and calcified with evidence of moderate aortic stenosis by planimetry with an aortic valve area of 0.4 cm2. The mitral valve seems to be also thickened and calcified with moderate MR. There was mild to moderate tricuspid regurgitation and aortic root appeared to be within normal limits for dimension. CONCLUSION: 1. No evidence of cardiac source of embolization. 2. Intact interatrial septum without any evidence of shunt. 3. Normal left atrial appendage without any evidence of thrombus. 4. Severe biatrial enlargement. 5. Aortic sclerosis with moderate stenosis without insufficiency. 6. Thickened mitral valve leaflets with moderate mitral regurgitation. 7. Mild to moderate tricuspid regurgitation. 8. Mild pulmonic insufficiency. 9. Normal aortic root dimension. 10.No evidence of pericardial effusion. MMODL / IJN: [id number] /
--- NOTE | 2018-06-10 15:25 | PN ---
PROGRESS NOTE Mrs. Thomas is a lady who presented with a TIA-type picture. She is going for a transesophageal echo because of a questionable vegetation on the aortic valve as well, which was actually seen before. She will have the procedure performed by Dr. Aranda. She also had a carotid CT angiography performed which revealed severe stenosis at the origin of the right internal carotid artery due to plaque and calcification, and this represents progression of disease when compared to the study from a few years ago. The left internal carotid appears to be unremarkable. Vertebral arteries are patent bilaterally. She is going to have a CORAZON echo performed by Dr. Aranda today. Vitals are stable. Her blood pressure is 118/70. Pulse rate is 70 per minute. She has chronic atrial fibrillation. Rate control is good. S1-S2 heard normally. Short systolic murmur is audible at the base. Irregular rate and rhythm noted. Lungs are clear. Abdomen is soft, nontender. Rest of physical examination is unchanged. MMODL / IJN: [id number] /
[2018-06-10] MEDS: ASPIRIN 81 MG PO SCH (16:14)
[2018-06-10] MEDS: DOCUSATE 100 MG CAP PO SCH (16:15)
[2018-06-10] MEDS: LOSARTAN 50 MG TAB PO SCH (16:15)
[2018-06-10] MEDS: CHOLECALCIFEROL 1,000 UNIT TAB PO SCH (16:15)
[2018-06-10] MEDS: ISOSORBIDE MONONITRATE ER 30 MG TAB.ER.24H PO SCH (16:15)
[2018-06-10] MEDS: VITAMIN E (DL,TOCOPHERYL ACET) 400 UNIT CAP PO SCH (16:24)
--- NOTE | 2018-06-10 17:21 | P.PN ---
Subjective Progress Note Date: 06/10/18 Principal diagnosis: TIA Is a pleasant 82-year-old male continuing to be evaluated by the neurology service for a TIA. She was brought to [facility] emergency room with a sudden onset of speech difficulty and blurred vision. Symptoms lasted less than 2 hours and resolved completely. She has a history of atrial fibrillation taking Coumadin. She denies any new neurological symptoms since admission. Recall that initial computed tomography scan of the brain was done and showed no acute intracranial abnormalities. Her carotid Doppler showed significant stenosis of the right internal carotid artery. CTA showed confirm significant stenosis. He is being evaluated for this by Dr. Aranda. At the time of my exam she is laying down in her bed in a bit of distress because of her chronic mid to low back pain. Objective - Vital Signs Vital signs: Vital Signs Temp 97.5 F L 06/10/18 08:05 Pulse 80 06/10/18 14:00 Resp 18 06/10/18 14:00 BP 134/60 06/10/18 14:00 Pulse Ox 95 06/10/18 14:00 Intake & Output 06/09/18 06/10/18 06/10/18 18:59 06:59 18:59 Intake Total 420 300 Output Total 200 250 Balance 220 50 Weight 85.7 kg Intake: Intake, IV Titration 60 Amount Sodium Chloride 0.9% 1, 60 000 ml @ 100 mls/hr IV . Q10H STA Rx#:[id number] Oral 420 240 Output: Urine 200 250 Other: # Voids 1 1 2 - Constitutional General appearance: Present: cooperative, mild distress - EENT Eyes: Present: PERRLA. Absent: abnormal pupil, ptosis ENT: Present: hearing grossly normal - Neck Neck: Present: normal ROM. Absent: rigidity - Respiratory Respiratory: negative: prolonged expiration, prolonged inspiration - Cardiovascular Rhythm: regular - Gastrointestinal General gastrointestinal: Absent: distended, tenderness - Neurologic Neurologic Comment(s): The patient is alert awake and oriented 3. Speech and language are normal. There is no facial asymmetry. Strength is 5 out of 5 in bilateral upper and lower extremities. There is no sensory deficit. No tremors or seizures are seen. Cranial nerves II through XII are intact globally. - Labs CBC & Chem 7: 06/10/18 06:10 06/10/18 06:10 Labs: Abnormal Lab Results - Last 24 Hours (Table) 06/09/18 06/10/18 06/10/18 Range/Units 14:35 06:10 06:10 PT 20.0 H (9.0-12.0) sec INR 2.0 H (<1.2) BUN 22 H (7-17) mg/dL Cholesterol 220 H (<200) mg/dL LDL Cholesterol, Calc 132 H (0-99) mg/dL HDL Cholesterol 61 H (40-60) mg/dL Urine Blood Moderate H (Negative) Ur Leukocyte Esterase Small H (Negative) Urine RBC 17 H (0-5) /hpf Urine Mucus Rare H (None) /hpf Microbiology - Last 24 Hours (Table) 06/09/18 11:40 Blood Culture - Preliminary Blood No Growth after 24 hours 06/09/18 11:51 Blood Culture - Preliminary Blood No Growth after 24 hours 06/08/18 22:00 Blood Culture - Preliminary Blood No Growth after 24 hours Assessment and Plan (1) Dysarthria Current Visit: Yes Status: Resolved Code(s): R47.1 - DYSARTHRIA AND ANARTHRIA SNOMED Code(s): 4484575 (2) Carotid stenosis Current Visit: Yes Status: Chronic Code(s): I65.29 - OCCLUSION AND STENOSIS OF UNSPECIFIED CAROTID ARTERY SNOMED Code(s): 61829974 (3) Hypertension Current Visit: Yes Status: Chronic Code(s): I10 - ESSENTIAL (PRIMARY) HYPERTENSION SNOMED Code(s): 61901832 (4) Headache Current Visit: Yes Status: Resolved Code(s): R51 - HEADACHE SNOMED Code(s) : 76009819 (5) Chronic thoracic back pain Current Visit: Yes Status: Chronic Code(s): M54.6 - PAIN IN THORACIC SPINE; G89.29 - OTHER CHRONIC PAIN SNOMED Code(s): 484762705465190 (6) Chronic low back pain Current Visit: Yes Status: Chronic Code(s): M54.5 - LOW BACK PAIN; G89.29 - OTHER CHRONIC PAIN SNOMED Code(s): 686389827 (7) TIA (transient ischemic attack) Current Visit: Yes Status: Acute Code(s): G45.9 - TRANSIENT CEREBRAL ISCHEMIC ATTACK, UNSPECIFIED SNOMED Code(s): 885528469 (8) Chronic atrial fibrillation Current Visit: No Status: Chronic Code(s): I48.2 - CHRONIC ATRIAL FIBRILLATION SNOMED Code(s): 554935762 Plan: The patient appears to have suffered a transient ischemic attack. Her symptoms have resolved. Cardiology will continue to follow for her significant stenosis. Continue Coumadin at current dose. No further inpatient neurological testing is needed. She is cleared from a neurological standpoint. We will follow her up in outpatient setting. I have performed a history and physical on the above patient. I have reviewed the above note, and agree.
[2018-06-10] MEDS ORDERED: WARFARIN 5 MG TAB PO ONE (19:15)
[2018-06-10] MEDS ORDERED: WARFARIN 5 MG TAB PO SCH (19:30)
[2018-06-10] MEDS: FAMOTIDINE 20 MG TAB PO SCH (20:16)
--- NOTE | 2018-06-10 21:09 | P.PN ---
Subjective Progress Note Date: 06/10/18 Principal diagnosis: carotid stenosis Patient seen and examined. She had CORAZON this morning without complications. States she is doing well and has no complaints of unilateral weakness, speech issues or vision changes. She states discussing her carotid stenosis with her daughter and wants to take some time to decide if she wants an intervention for her carotid disease. Objective - Vital Signs Vital signs: Vital Signs Temp 97.5 F L 06/10/18 16:05 Pulse 83 06/10/18 16:05 Resp 18 06/10/18 16:05 BP 180/91 06/10/18 16:05 Pulse Ox 97 06/10/18 16:05 Intake & Output 06/10/18 06/10/18 06/11/18 06:59 18:59 06:59 Intake Total 300 230 Output Total 250 Balance 50 230 Weight 85.7 kg Intake: Intake, IV Titration 60 Amount Sodium Chloride 0.9% 1, 60 000 ml @ 100 mls/hr IV . Q10H STA Rx#:[id number] Oral 240 230 Output: Urine 250 Other: # Voids 1 2 - Exam No focal deficits. Tongue midline, no facial droop. Muscle strength equal. - Constitutional General appearance: Present: cooperative - EENT Eyes: Present: PERRLA - Respiratory Respiratory: bilateral: CTA - Psychiatric Psychiatric: Present: A&O x's 3, appropriate affect, intact judgment & insight - Labs CBC & Chem 7: 06/10/18 06:10 06/10/18 06:10 Labs: Abnormal Lab Results - Last 24 Hours (Table) 06/09/18 06/10/18 06/10/18 Range/Units 14:35 06:10 06:10 PT 20.0 H (9.0-12.0) sec INR 2.0 H (<1.2) BUN 22 H (7-17) mg/dL Cholesterol 220 H (<200) mg/dL LDL Cholesterol, Calc 132 H (0-99) mg/dL HDL Cholesterol 61 H (40-60) mg/dL Urine Blood Moderate H (Negative) Ur Leukocyte Esterase Small H (Negative) Urine RBC 17 H (0-5) /hpf Urine Mucus Rare H (None) /hpf Microbiology - Last 24 Hours (Table) 06/09/18 11:40 Blood Culture - Preliminary Blood No Growth after 24 hours 06/09/18 11:51 Blood Culture - Preliminary Blood No Growth after 24 hours 06/08/18 22:00 Blood Culture - Preliminary Blood No Growth after 24 hours Assessment and Plan (1) TIA (transient ischemic attack) Current Visit: Yes Status: Acute Priority: High Code(s): G45.9 - TRANSIENT CEREBRAL ISCHEMIC ATTACK, UNSPECIFIED SNOMED Code(s): 865950903 (2) Carotid stenosis Current Visit: Yes Status: Chronic Priority: High Code(s): I65.29 - OCCLUSION AND STENOSIS OF UNSPECIFIED CAROTID ARTERY SNOMED Code(s): 63890184 Plan: Continue current medications. Follow up as outpatient.
[2018-06-11 06:34] LABS: Basophils % (A) 0 %; Eosinophils # (A) 0.2 k/uL (0-0.7); Eosinophils % (A) 3 %; HCT 39.3 % (34.0-46.0); HGB 12.4 gm/dL (11.4-16.0); Lymphocytes # (A) 1.4 k/uL (1.0-4.8); Lymphocytes % (A) 18 %; MCH 28.9 pg (25.0-35.0); MCHC 31.6 g/dL (31.0-37.0); MCV 91.6 fL (80.0-100.0); Mean Platelet Volume 7.7; Monocytes # (A) 0.6 k/uL (0-1.0); Monocytes % (A) 8 %; Neutrophils # (A) 5.5 k/uL (1.3-7.7); Neutrophils % (A) 69 %; Platelet Count 214 k/uL (150-450); RBC 4.29 m/uL (3.80-5.40); RDW 13.5 % (11.5-15.5)
[2018-06-11] MEDS: CARVEDILOL 6.25 MG TAB PO SCH (06:39)
[2018-06-11 06:48] LABS: Albumin 3.8 g/dL (3.5-5.0); Calcium 8.8 mg/dL (8.4-10.2); Potassium 4.5 mmol/L (3.5-5.1); Total Bilirubin 0.7 mg/dL (0.2-1.3); Total Protein 6.8 g/dL (6.3-8.2)
[2018-06-11 06:49] LABS: INR 1.9 (<1.2); Prothrombin Time 18.8 sec (9.0-12.0)
[2018-06-11] MEDS: CHOLECALCIFEROL 1,000 UNIT TAB PO SCH (07:55)
[2018-06-11] MEDS: DOCUSATE 100 MG CAP PO SCH (07:55)
[2018-06-11] MEDS: ISOSORBIDE MONONITRATE ER 30 MG TAB.ER.24H PO SCH (07:55)
[2018-06-11] MEDS: LOSARTAN 50 MG TAB PO SCH (07:55)
[2018-06-11] MEDS: ASPIRIN 81 MG PO SCH (07:55)
--- NOTE | 2018-06-11 09:44 | P.WNDSOAP ---
Subjective Progress Note Date: 06/11/18 Principal diagnosis: Right ICA stenosis The patient has had no new symptoms since her admission. Today she tells me that she's had similar episodes for quite a number of years. They seem to be relieved by antihistamines. Objective - Vital Signs Vital signs: Vital Signs Temp 98.6 F 06/11/18 04:00 Pulse 82 06/11/18 07:58 Resp 16 06/11/18 07:58 BP 153/95 06/11/18 04:00 Pulse Ox 98 06/11/18 04:00 Intake & Output 06/10/18 06/11/18 06/11/18 18:59 06:59 18:59 Intake Total 230 240 Output Total 650 Balance 230 -650 240 Intake: Oral 230 240 Output: Urine 650 Other: # Voids 2 - Exam She has no focal deficits. She appears to be fully neurologically intact. Her CT angios shows a high-grade right ICA stenosis. - Labs CBC & Chem 7: 06/11/18 05:24 06/11/18 05:24 Labs: Abnormal Lab Results - Last 24 Hours (Table) 06/11/18 06/11/18 Range/Units 05:24 05:24 PT 18.8 H (9.0-12.0) sec INR 1.9 H (<1.2) BUN 18 H (7-17) mg/dL Microbiology - Last 24 Hours (Table) 06/08/18 22:00 Blood Culture - Preliminary Blood No Growth after 48 hours 06/09/18 11:40 Blood Culture - Preliminary Blood No Growth after 24 hours 06/09/18 11:51 Blood Culture - Preliminary Blood No Growth after 24 hours Assessment and Plan (1) Stenosis of right internal carotid artery Current Visit: Yes Status: Acute Code(s): I65.21 - OCCLUSION AND STENOSIS OF RIGHT CAROTID ARTERY SNOMED Code(s): 983390502 (2) Expressive aphasia Current Visit: No Status: Acute Code(s): R47.01 - APHASIA SNOMED Code(s): 361701640 Plan: I discussed options with the patient in detail. We discussed the procedure of carotid stenting versus open carotid endarterectomy versus TCAR. We specifically discussed the contrast of the procedures and relative risks. I have urged her to follow up with Dr. Vick as soon as possible.
[2018-06-11 11:34] VITALS: RESP 17; TEMP 97.9
[2018-06-11 11:37] VITALS: BP 135/73; PULSE 81
[2018-06-11] MEDS: VITAMIN E (DL,TOCOPHERYL ACET) 400 UNIT CAP PO SCH (11:38)
--- NOTE | 2018-06-11 11:50 | P.DS ---
Providers Date of admission: 06/08/18 23:15 Expected date of discharge: 06/11/18 Attending physician: Sandra Villa Consults: 06/08/18 23:16 Consult Physician Urgent Consulting Provider: [facility] Consult Reason/Comments: estalbished patient, concern for endocarditis? TIA Do you want consulting provider notified?: Yes, Notify in am Consult Physician Urgent Consulting Provider: Judah Oro Consult Reason/Comments: TIA Do you want consulting provider notified?: Yes, Notify in am 06/09/18 14:34 Consult Physician Routine Consulting Provider: Simone Vick Consult Reason/Comments: Significant carotid stenosis Do you want consulting provider notified?: Yes [facility] Course: Diagnosis on discharge: 1. Blurred vision and garbled speech possibly related to TIA. Head CT showing cerebral atrophy. No acute intracranial abnormality. No change. Mild hydrocephalus. 2-D echo and carotid Doppler ultrasound has been ordered. EKG showing atrial fibrillation which is not new for patient. Coumadin resumed per cardiology services. Per neurology services patient does appear to have suffered a transient ischemic attack with transient episode of dyspnea that he had visual changes. Fasting lipid panel and serum homocysteine level has been ordered. 2. Reported potential agitation of her heart valve. Per daughter patient scheduled for CORAZON on June 30 for evaluation of possible endocarditis with Dr. Wilcox. Cardiology services have been consulted. 2-D echo completed showing an EF between 55%and 60%. Patient will undergo CORAZON with Dr. Wilcox today 3. Atrial fibrillation. Patient maintained on Coumadin for anticoagulation. INR 2.3 Coumadin has been resumed per cardiology services 4. History of TIA . No residuals noted 5. History of asthma. Chest x-ray completed showing cardiomegaly. No active cardiopulmonary disease. No significant change. 6. History of GERD\ 7. History of essential hypertension 8. History of pneumonia 9. Hemodynamically significant stenosis in the right internal carotid artery. Ultrasound of the carotid Dopplers completed showing severe atherosclerotic change right carotid bulb, hemodynamically significant stenosis estimated greater than 70% is felt present in the right internal carotid artery. Dr. Vick has been consulted for vascular surgery. CT of the neck completed showing severe stenosis at the origin of the right internal carotid artery due to plaque formation and calcification. Luminal narrowing is estimated 90% there is progression of the stenosis compared to old exam no evidence of hemodynamic stenosis of the left internal carotid arteries. Per Dr. Vick options discussed with patient in regards to intervention including open carotid endarterectomy, versus carotid stenting. Patient states she will talk to her family and make a decision 10. Urinary analysis showing small amount of leukocyte Estrace. Patient remains asymptomatic. Urine culture has been ordered results are still pending at the time of discharge patient was not given any antibiotics during this admission that was already 1 white blood cell in the urine however urine culture should be followed as outpatient and if positive she should receive oral antibiotic for management of UTI Hospital course: This is an 82-year-old female patient of Dr. Choudhury. Patient presented with complaints of blurry vision and slurred speech. She states symptoms started around 8 PM last night. Patient called daughter and the daughter reported at that time her mother was expressing some garbled speech difficulty decided to bring him to the hospital for further evaluation. Patient has medical history includes atrial fibrillation which she is maintained on Coumadin. Additional medical history includes asthma, CAD, heart failure, CVA, GERD, GI bleed, hyperlipidemia, hypertension, pneumonia, history of TIAs, left breast biopsy and ex-smoker. 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 Wilcox with concerns of vegetation of one of her heart valves been scheduled for CORAZON in June. EKG completed showing atrial fibrillation with a heart rate of 83. Cardiology services has been consulted. Chest x-ray completed showing mild cardiomegaly. No active cardiopulmonary disease. No significant change. Head CT completed showing cerebral atrophy. No acute intracranial abnormality. No change. Mild hydrocephalus. Neurology services have been consulted. 2-D echo and carotid Doppler ultrasound ordered. At this time patient states symptoms have completely resolved. Daughter currently at bedside. Patient also requesting to be a no code per advanced directive. Patient denies chest pain or shortness of breath. Patient denies nausea vomiting or diarrhea. Patient denies urinary burning or frequency. Patient also denies any fevers or muscle aches and chills. On 06/10/2018 patient is currently sitting up in bed. Neuro symptoms have completely resolved. Patient is alert and oriented 3. At this time patient will undergo CORAZON with Dr. Wilcox today for evaluation of possible valve vegetation. This time patient denies chest pain or shortness of breath. Patient denies nausea and diarrhea. Patient denies any urinary burning or frequency. Patient Condition at Discharge: Serious Plan - Discharge Summary Discharge Rx Participant: Yes New Discharge Prescriptions: Continue Warfarin [Coumadin] 5 mg PO AC-SUPPER [place]-3 Fatty Acids/Fish Oil [Fish Oil 1,000 mg Softgel] 2 mg PO DAILY Isosorbide Mononitrate ER [Imdur] 30 mg PO DAILY Furosemide [Lasix] 20 mg PO DAILY PRN PRN Reason: Edema Loratadine [Claritin] 10 mg PO DAILY PRN PRN Reason: Allergy Symptoms Nitroglycerin Sl Tabs [Nitrostat] 0.4 mg SUBLINGUAL Q5M PRN PRN Reason: Chest Pain Vitamin E (Dl,Tocopheryl Acet) [Vitamin E] 400 unit PO DAILY Docusate [Colace] 100 mg PO DAILY Ranitidine HCl [Zantac] 150 mg PO HS Aspirin [Adult Low Dose Aspirin EC] 81 mg PO DAILY Albuterol Inhaler [Ventolin Hfa Inhaler] 2 puff INHALATION RT-Q4H PRN PRN Reason: Shortness Of Breath Cholecalciferol [Vitamin D3] 2,000 unit PO DAILY Carvedilol [Coreg] 6.25 mg PO BID Irbesartan 75 mg PO HS Vitamin B Complex 1 cap PO DAILY Discharge Medication List Docusate [Colace] 100 mg PO DAILY 10/02/14 [History] Furosemide [Lasix] 20 mg PO DAILY PRN 10/02/14 [History] Isosorbide Mononitrate ER [Imdur] 30 mg PO DAILY 10/02/14 [History] Loratadine [Claritin] 10 mg PO DAILY PRN 10/02/14 [History] Nitroglycerin Sl Tabs [Nitrostat] 0.4 mg SUBLINGUAL Q5M PRN 10/02/14 [History] [place]-3 Fatty Acids/Fish Oil [Fish Oil 1,000 mg Softgel] 2 mg PO DAILY 10/02/14 [History] Ranitidine HCl [Zantac] 150 mg PO HS 10/02/14 [History] Vitamin E (Dl,Tocopheryl Acet) [Vitamin E] 400 unit PO DAILY 10/02/14 [History] Warfarin [Coumadin] 5 mg PO AC-SUPPER 10/02/14 [History] Aspirin [Adult Low Dose Aspirin EC] 81 mg PO DAILY 07/18/16 [History] Albuterol Inhaler [Ventolin Hfa Inhaler] 2 puff INHALATION RT-Q4H PRN 06/11/16 [ History] Cholecalciferol [Vitamin D3] 2,000 unit PO DAILY 10/05/16 [History] Carvedilol [Coreg] 6.25 mg PO BID 12/11/16 [History] Irbesartan 75 mg PO HS 06/08/18 [History] Vitamin B Complex 1 cap PO DAILY 06/08/18 [History] Follow up Appointment(s)/Referral(s): Tahira Choudhury MD [Primary Care Provider] - 1-2 days Simone Vick DO [STAFF PHYSICIAN] - 1 Week Judah Oro MD [STAFF PHYSICIAN] - 3 Weeks
--- NOTE | 2018-06-11 22:11 | CONS ---
CONSULTATION This lady has a significant right carotid lesion. She has chronic atrial fib and had a CORAZON echo because of a suspicious looking aortic valve vegetation. Dr. Aranda performed the CORAZON and called me yesterday to say that she does not have any vegetation. Right carotid stenosis needs to be addressed further. She can be discharged and see Dr. Aranda as an outpatient for possible selective angiography and intervention based on findings. She is elderly and risk is high for any surgical procedure. She may be a candidate for stent grafting, but this will be determined based on the angiogram and other clinical assessment that Dr. Aranda will perform. Vital signs are stable. No JVD. S1 and S2 heard normally. Irregular rhythm noted. Short systolic murmur noted. Lungs are clear. Abdomen and lower extremity exam unchanged. Patient can be discharged today. MMODL / IJN: [id number] /
== END 2018-06-11 15:07 | disposition home or self-care (01) | DRG 69 ==
LOC: EC 21:32 → OBSVTOIN 23:15 → 3SCARD 23:15
PROVIDERS: ADMIT Internal Medicine; ATTEND Internal Medicine
DX: G45.9 Transient cerebral ischemic attack, unspecified (principal); G91.9 Hydrocephalus, unspecified; J45.909 Unspecified asthma, uncomplicated; K21.9 Gastro-esophageal reflux disease without esophagitis; E78.5 Hyperlipidemia, unspecified; G89.29 Other chronic pain; I48.2 Chronic atrial fibrillation; I50.9 Heart failure, unspecified; H53.8 Other visual disturbances; R47.89 Other speech disturbances; I11.0 Hypertensive heart disease with heart failure; M54.6 Pain in thoracic spine; I25.10 Atherosclerotic heart disease of native coronary artery without angina pectoris; I65.21 Occlusion and stenosis of right carotid artery; R47.1 Dysarthria and anarthria; M81.0 Age-related osteoporosis without current pathological fracture; Z86.73 Personal history of transient ischemic attack (TIA), and cerebral infarction without residual deficits; Z87.891 Personal history of nicotine dependence; Z90.49 Acquired absence of other specified parts of digestive tract; Z90.710 Acquired absence of both cervix and uterus; Z79.899 Other long term (current) drug therapy; Z79.01 Long term (current) use of anticoagulants; Z79.82 Long term (current) use of aspirin; Z88.2 Allergy status to sulfonamides; Z88.8 Allergy status to other drugs, medicaments and biological substances; Z87.01 Personal history of pneumonia (recurrent); Z87.11 Personal history of peptic ulcer disease; Z82.49 Family history of ischemic heart disease and other diseases of the circulatory system; Z82.3 Family history of stroke; Z80.0 Family history of malignant neoplasm of digestive organs
CPT/HCPCS: 36415; 70450; 70498; 71046; 80053; 80061; 81001; 82550; 82553; 83090; 84484; 85025; 85610; 85730; 87040; 87086; 93005; 93306; 93312; 93320; 93325; 93880; 96360; 96361; 99285

== ENCOUNTER → 2018-10-20 | Outpatient (CLI) | payer MEDICARE ==
--- NOTE | 2018-10-24 08:04 | MM ---
Reason for exam: screening (asymptomatic). Last mammogram was performed 1 year ago. History: Patient is postmenopausal. Benign US breast aspiration single LT of the left breast, October 10, 2014. Benign US breast localization LT, October 02, 2014. Benign left breast aspiration of the left breast, February 05, 2012. Excisional biopsy of the left breast, September 26, 2007. Physical Findings: A clinical breast exam by your physician is recommended on an annual basis and results should be correlated with mammographic findings. MG 3D Screening Mammo W/Cad Bilateral CC and MLO view(s) were taken. Prior study comparison: October 12, 2017, bilateral MG 3d screening mammo w/cad. September 23, 2016, bilateral MG 3d screening mammo w/cad. There are scattered fibroglandular densities. There is chronic nodularity bilaterally. No significant changes when compared with prior studies. ASSESSMENT: Benign, BI-RAD 2 RECOMMENDATION: Routine screening mammogram of both breasts in 1 year.
== END | disposition home or self-care (01) ==
LOC: RADMAMWWP 13:26
PROVIDERS: ATTEND Family Medicine
DX: Z12.31 Encounter for screening mammogram for malignant neoplasm of breast (principal)
CPT/HCPCS: 77063; 77067

== ENCOUNTER 2019-04-19 20:59 | Observation (INO) | payer MEDICARE ==
[2019-04-19] MEDS ORDERED: SODIUM CHLORIDE 0.9% 1,000 ML IV STA (21:36)
[2019-04-19] MEDS ORDERED: SODIUM CHLORIDE 0.9% 500 ML 500 ML IV STA (21:36)
--- NOTE | 2019-04-19 21:44 | ED ---
Chest Pain HPI - General Chief Complaint: Chest Pain Stated Complaint: High BP Time Seen by Provider: 04/19/19 21:14 Source: patient, RN notes reviewed, old records reviewed Mode of arrival: ambulatory Limitations: no limitations - History of Present Illness Initial Comments: This is an 83-year-old, patient resents today for evaluation of chest pain pat ient with persistent chest pain with elevated blood pressure at home. History of A. fib. She did take extra blood pressure medication today with no help. No nausea no vomiting but has not felt well throughout the day. No recent heart attack. Patient is on blood thinners, Coumadin. No fevers MD Complaint: chest pain, other (Elevated blood pressure) -: hour(s) Onset: during rest Pain Location: left chest Pain Radiation: none Severity: mild Severity scale (1-10): 3 Quality: tightness, heaviness Consistency: constant Improves With: nitroglycerin Worsens With: nothing Anginal Symptoms: nausea Treatments Prior to Arrival: none - Related Data Home Medications Medication Instructions Recorded Confirmed Docusate [Colace] 100 mg PO DAILY 10/02/14 04/19/19 Furosemide [Lasix] 20 mg PO Q48H PRN 10/02/14 04/19/19 Loratadine [Claritin] 10 mg PO DAILY PRN 10/02/14 04/19/19 Nitroglycerin Sl Tabs [Nitrostat] 0.4 mg SUBLINGUAL Q5M PRN 10/02/14 04/19/19 [place]-3 Fatty Acids/Fish Oil [Fish 2 mg PO DAILY 10/02/14 04/19/19 Oil 1,000 mg Softgel] Ranitidine HCl [Zantac] 150 mg PO HS PRN 10/02/14 04/19/19 Vitamin E (Dl,Tocopheryl Acet) 400 unit PO HS 10/02/14 04/19/19 [Vitamin E] Warfarin [Coumadin] 5 mg PO SUTUWEFRSA@1800 10/02/14 04/19/19 Aspirin [Adult Low Dose Aspirin EC] 81 mg PO DAILY 01/13/16 04/19/19 Albuterol Inhaler [Ventolin Hfa 2 puff INHALATION RT-Q4H PRN 06/11/16 04/19/19 Inhaler] Cholecalciferol [Vitamin D3 (25 2,000 unit PO DAILY 10/05/16 04/19/19 Mcg = 1000 Iu)] Carvedilol [Coreg] 6.25 mg PO BID 12/11/16 04/19/19 Vitamin B Complex 1 cap PO DAILY 06/08/18 04/19/19 Ezetimibe [Zetia] 10 mg PO HS 04/19/19 04/19/19 Isosorbide Mononitrate ER [Imdur] 60 mg PO DAILY 04/19/19 04/19/19 [place]-3 Fatty Acids [[place]-3] 2,000 mg PO DAILY 04/19/19 04/19/19 Warfarin Sodium [Coumadin] 4 mg PO MOTH@1800 04/19/19 04/19/19 Allergies Allergy/AdvReac Type Severity Reaction Status Date / Time benazepril HCl Allergy Wheezing Verified 04/19/19 22:21 [From Lotensin] fluticasone Allergy mouth sores Verified 04/19/19 22:21 [From Advair Diskus] gemfibrozil [From Lopid] Allergy Rash/Hives Verified 04/19/19 22:21 metoprolol [From Lopressor] Allergy Hallucinati Verified 04/19/19 22:21 ons montelukast Allergy peeling Verified 04/19/19 22:21 skin and rash/CONFUSION salmeterol Allergy mouth sores Verified 04/19/19 22:21 [From Advair Diskus] sulfamethoxazole Allergy Swelling Verified 04/19/19 22:21 [From Bactrim] trimethoprim [From Bactrim] Allergy Swelling Verified 04/19/19 22:21 amlodipine besylate AdvReac Swelling Verified 04/19/19 22:21 [From Norvasc] atorvastatin calcium AdvReac Nausea & Verified 04/19/19 22:21 [From Lipitor] Vomiting esomeprazole magnesium AdvReac Cough Verified 04/19/19 22:21 [From Nexium] pravastatin AdvReac MUSCLE Verified 04/19/19 22:21 PAIN AND STOMACH CRAMPS procaine HCl [From Novocain] AdvReac JITTERY Verified 04/19/19 22:21 Review of Systems ROS Statement: Those systems with pertinent positive or pertinent negative responses have been documented in the HPI. ROS Other: All systems not noted in ROS Statement are negative. EKG Findings - EKG Comments: EKG Findings:: EKG shows A. fib rate of 92, QRS 124, QTc 469 Past Medical History Past Medical History: Atrial Fibrillation, Asthma, Coronary Artery Disease (CAD), Heart Failure, CVA/TIA, GERD/Reflux, GI Bleed, Hyperlipidemia, Hypertension, Pneumonia Additional Past Medical History / Comment(s): osteoporsis, hx migraines, TIA- no effects, swelling in ankles(left worse), hx ulcer, hiatal hernia, arthritis, History of Any Multi-Drug Resistant Organisms: None Reported Past Surgical History: Breast Surgery, Cholecystectomy, Heart Catheterization, Hysterectomy, Tonsillectomy Additional Past Surgical History / Comment(s): left breast biopsies, left breat cyst removed, left carotid endarterectomy, bilateral cataract surgery Past Anesthesia/Blood Transfusion Reactions: Motion Sickness Past Psychological History: No Psychological Hx Reported Smoking Status: Former smoker Past Alcohol Use History: None Reported Past Drug Use History: None Reported - Past Family History Son(s) Family Medical History: Cancer Additional Family Medical History / Comment(s): heart valve replacement, colon CA, heart murmur, heart failure since been resolved Mother Family Medical History: Coronary Artery Disease (CAD), Myocardial Infarction (DE) Father Family Medical History: CVA/TIA, Hypertension, Myocardial Infarction (DE) General Exam Limitations: no limitations General appearance: alert, in no apparent distress Head exam: Present: atraumatic, normocephalic, normal inspection Eye exam: Present: normal appearance, PERRL, EOMI. Absent: scleral icterus, conjunctival injection, periorbital swelling ENT exam: Present: normal exam, mucous membranes dry Neck exam: Present: normal inspection. Absent: tenderness, meningismus, lymphadenopathy Respiratory exam: Present: normal lung sounds bilaterally. Absent: respiratory distress, wheezes, rales, rhonchi, stridor Cardiovascular Exam: Present: tachycardia, irregular rhythm, normal heart sounds. Absent: systolic murmur, diastolic murmur, rubs, gallop, clicks GI/Abdominal exam: Present: soft, normal bowel sounds. Absent: distended, tenderness, guarding, rebound, rigid Extremities exam: Present: normal inspection, full ROM, normal capillary refill. Absent: tenderness, pedal edema, joint swelling, calf tenderness Back exam: Present: normal inspection Neurological exam: Present: alert, oriented X3, CN II-XII intact Psychiatric exam: Present: normal affect, normal mood Skin exam: Present: warm, dry, intact, normal color. Absent: rash Course Vital Signs 04/19/19 04/19/19 04/19/19 21:01 21:21 21:55 Temperature 97.6 F Pulse Rate 98 71 Respiratory 18 19 Rate Blood Pressure 165/114 156/115 170/92 O2 Sat by Pulse 95 96 Oximetry 04/19/19 23:06 Temperature 97.5 F L Pulse Rate 73 Respiratory 19 Rate Blood Pressure 151/98 O2 Sat by Pulse 99 Oximetry - Reevaluation(s) Reevaluation #1: 04/19/19 23:23 Medical record is reviewed Reevaluation #2: 04/19/19 23:23 BP is controlled - Consultations Consultation #1: spoke w DR Daisy back for admission Chest Pain MDM - MDM 83 female here to the ER patient resents today for evaluation regards to chest pain and elevated blood pressure patient be admitted for cardiac Disposition Clinical Impression: Chest pain, Hypertension Disposition: ADMITTED IP TO THIS HOSP Condition: Undetermined Is patient prescribed a controlled substance at d/c from ED?: No Referrals: Tahira Choudhury MD [Primary Care Provider] - 1-2 days
[2019-04-19 21:51] LABS: Basophils # (A) 0.1 k/uL (0-0.2); Basophils % (A) 1 %; Eosinophils # (A) 0.2 k/uL (0-0.7); Eosinophils % (A) 3 %; HCT 44.1 % (34.0-46.0); HGB 14.9 gm/dL (11.4-16.0); Lymphocytes # (A) 1.5 k/uL (1.0-4.8); Lymphocytes % (A) 22 %; MCH 30.7 pg (25.0-35.0); MCHC 33.8 g/dL (31.0-37.0); MCV 90.9 fL (80.0-100.0); Monocytes # (A) 0.5 k/uL (0-1.0); Monocytes % (A) 7 %; Neutrophils # (A) 4.5 k/uL (1.3-7.7); Neutrophils % (A) 64 %; Platelet Count 225 k/uL (150-450); RBC 4.85 m/uL (3.80-5.40); RDW 13.3 % (11.5-15.5)
--- NOTE | 2019-04-19 21:52 | XR ---
EXAMINATION TYPE: XR chest 2V DATE OF EXAM: 04/19/2019 COMPARISON: 06/08/2018 HISTORY: Chest pain TECHNIQUE: Frontal and lateral views of the chest are obtained. FINDINGS: There is no heart failure nor confluent pneumonic infiltrate. Costophrenic angles are [place] r. There are chest leads. Bony thorax is intact. There is osteopenia. IMPRESSION: No active cardiopulmonary disease. Borderline cardiomegaly. No change.
[2019-04-19 21:58] LABS: Albumin 4.6 g/dL (3.5-5.0); Calcium 9.7 mg/dL (8.4-10.2); Magnesium 1.9 mg/dL (1.6-2.3); Potassium 4.2 mmol/L (3.5-5.1); Total Bilirubin 0.6 mg/dL (0.2-1.3); Total Protein 8.1 g/dL (6.3-8.2)
[2019-04-19 22:00] LABS: INR 2.8 (<1.2); Prothrombin Time 27.4 sec (9.0-12.0)
[2019-04-19 22:01] LABS: Partial Thromboplastin Time 40.1 sec (22.0-30.0)
[2019-04-19 22:07] LABS: D-Dimer 1.34 mg/L FEU (<0.60)
[2019-04-19] MEDS ORDERED: NITROGLYCERIN SL TABS 0.4 MG TAB SUBLINGUAL PRN (23:21)
[2019-04-19] MEDS ORDERED: ASPIRIN 81 MG PO STA (23:21)
[2019-04-19 23:49] VITALS: RESP 18
[2019-04-20 04:15] LABS: Cholesterol 160 mg/dL (<200); HDL Cholesterol 46 mg/dL (40-60); LDL Cholesterol,Calculated 63 mg/dL (0-99); Triglycerides 255 mg/dL (<150)
[2019-04-20] MEDS ORDERED: LORATADINE 10 MG TAB PO PRN (08:35)
[2019-04-20] MEDS ORDERED: ALBUTEROL NEBULIZED 2.5 MG/3 ML INHALATION PRN (08:35)
[2019-04-20] MEDS ORDERED: NITROGLYCERIN SL TABS 0.4 MG TAB SUBLINGUAL PRN (08:35)
[2019-04-20] MEDS ORDERED: CYANOCOBALAMIN-FA-PYRIDOXINE 1 EACH TAB PO SCH (09:00)
[2019-04-20] MEDS ORDERED: DOCUSATE 100 MG CAP PO SCH (09:00)
[2019-04-20] MEDS ORDERED: ASPIRIN 325 MG TAB PO SCH (09:00)
[2019-04-20] MEDS ORDERED: ISOSORBIDE MONONITRATE ER 60 MG TAB.ER.24H PO SCH (09:00)
[2019-04-20] MEDS ORDERED: OMEGA PO SCH (09:00)
[2019-04-20] MEDS ORDERED: FATTY ACIDS PO SCH (09:00)
[2019-04-20] MEDS ORDERED: CHOLECALCIFEROL 1,000 UNIT TAB PO SCH (09:00)
[2019-04-20] MEDS ORDERED: FISH OIL PO SCH (09:00)
[2019-04-20] MEDS ORDERED: LOSARTAN 25 MG TAB PO SCH (09:00)
[2019-04-20 09:39] LABS: INR 3.2 (<1.2); Prothrombin Time 30.6 sec (9.0-12.0)
--- NOTE | 2019-04-20 10:48 | P.CRDCN ---
History of Present Illness History of present illness: This is a pleasant 83-year-old female past medical history significant for aortic stenosis, hypertension, chronic persistent atrial fibrillation on [employer] anti-coagulation, dyslipidemia and TIA in the past. She follows in the office with Dr. Aranda. We have been asked to see her in consultation for chest pain. She states yesterday while attempting to go out and get her mail she felt a tightness in her chest and shortness of breath. This does happen to her from time to time. However she checked her blood pressure at home and it was quite elevated so she decided to come in for evaluation. Her chest pain and shortness of breath had subsided prior to arrival. She has had no further chest pain. The pressure on arrival was 165/114 156/115. Her blood pressure did come down this morning was 144/77 with a heart rate of 53. She is supposed to take lasix daily however she states she takes it every other day at times and if she has things to do Currently maintained on Coreg 6.25 mg twice a day, Lasix 20 mg every other day as needed, Imdur 60 mg daily, is that he 10 mg daily, aspirin 81 mg daily and Coumadin. She recently underwent a stress test in the office with Dr. Aranda in December 2018 was negative for stress-induced ischemia. She is seen and examined resting comfortably laying flat in bed in no acute distress. EKG reveals atrial fibrillation with left bundle branch block and controlled ventricular rate. Chest x-ray is negative for an acute cardiopulmonary process. Laboratory data reviewed, CBC unremarkable, INR 3.2, d-dimer 1.34, sodium 140, potassium 4.2, creatinine 1.01, cardiac enzymes negative 3, proBNP 1280, LDL 63. At the time of my exam: CONSTITUTIONAL: Denies fever. Denies chills. EYES: Denies blurred vision. Denies vision changes. Denies eye pain. EARS, NOSE, MOUTH & THROAT: Denies headache. Denies sore throat. Denies ear pain. CARDIOVASCULAR: Denies chest pain. Denies shortness of breath. Denies orthopnea. Denies PND. Denies palpitations. RESPIRATORY: Denies cough. GASTROINTESTINAL: Denies abdominal pain. Denies diarrhea. Denies constipation. Denies nausea. Denies vomiting. MUSCULOSKELETAL: Denies myalgias. INTEGUMENTARY: Denies pruitis. Denies rash. NEUROLOGIC: Denies numbness. Denies tingling. Denies weakness. PSYCHIATRIC: Denies anxiety. Denies depression. ENDOCRINE: Denies fatigue. Denies weight change. Denies polydipsia. Denies polyurina. GENITOURINARY: Denies burning, hematuria or urgency with micturation. HEMATOLOGIC: Denies history of anemia. Denies bleeding. Blood pressure 144/77 heart rate 63 afebrile maintaining oxygen saturation GENERAL: This is a 83-year-old female in no apparent distress at the time of my examination. HEENT: Head is atraumatic, normocephalic. Pupils are equal, round. Sclerae ani cteric. Conjunctivae are clear. Mucous membranes of the mouth are moist. Neck is supple. There is no jugular venous distention. No carotid bruit is heard. LUNGS: Clear to auscultation no wheezes, rales or rhonchi. No chest wall tenderness is noted on palpation or with deep breathing. HEART: Irregular rate and rhythm with systolic ejection murmur at the base, no rubs or gallops. S1 and S2 heard. ABDOMEN: Soft, nontender. Bowel sounds are heard. No organomegaly noted. EXTREMITIES: No evidence of peripheral edema and no calf tenderness noted. VASCULAR: Radial and dorsalis pedis pulses palpated, no evidence of clubbing. NEUROLOGIC: Patient is awake, alert and oriented x3. ASSESSMENT Chest pain, atypical. An acute coronary event has been ruled out. Recent normal stress test in the office. Aortic stenosis Hypertension Dyslipidemia Peripheral vascular disease, 70% stenosis of the right ICA PLAN An acute coronary event has been ruled out. Add small dose of losartan to better control blood pressure. Continue coreg as previously ordered. Repeat 2D echocardiogram and doppler study to assess cardiac structure and function. If echo is stable and blood pressure improves she may be discharged from a cardiac perspective and follow up with Dr. Aranda. Thank you kindly for this consultation. Nurse Practitioner note has been reviewed, I agree with a documented findings and plan of care. Patient was seen and examined. Past Medical History Past Medical History: Atrial Fibrillation, Asthma, Coronary Artery Disease (CAD), Heart Failure, CVA/TIA, GERD/Reflux, GI Bleed, Hyperlipidemia, Hypertension, Pneumonia Additional Past Medical History / Comment(s): osteoporosis, hx migraines, TIA- no effects, swelling in ankles, hx ulcer, hiatal hernia, arthritis, History of Any Multi-Drug Resistant Organisms: None Reported Past Surgical History: Breast Surgery, Cholecystectomy, Heart Catheterization, Hysterectomy, Tonsillectomy Additional Past Surgical History / Comment(s): left breast biopsies, left breat cyst removed, left carotid endarterectomy, bilateral cataract surgery Past Anesthesia/Blood Transfusion Reactions: Motion Sickness Past Psychological History: No Psychological Hx Reported Smoking Status: Former smoker Past Alcohol Use History: None Reported Past Drug Use History: None Reported - Past Family History Son(s) Family Medical History: Cancer Additional Family Medical History / Comment(s): heart valve replacement, colon C A, heart murmur, heart failure since been resolved Mother Family Medical History: Coronary Artery Disease (CAD), Myocardial Infarction ([place]) Father Family Medical History: CVA/TIA, Hypertension, Myocardial Infarction ([place]) Medications and Allergies Home Medications Medication Instructions Recorded Confirmed Type Docusate [Colace] 100 mg PO DAILY 10/02/14 04/20/19 History Furosemide [Lasix] 20 mg PO Q48H PRN 10/02/14 04/20/19 History Loratadine [Claritin] 10 mg PO DAILY PRN 10/02/14 04/20/19 History Nitroglycerin Sl Tabs [Nitrostat] 0.4 mg SUBLINGUAL Q5M PRN 10/02/14 04/20/19 H istory [place]-3 Fatty Acids/Fish Oil [Fish 2 mg PO DAILY 10/02/14 04/20/19 History Oil 1,000 mg Softgel] Ranitidine HCl [Zantac] 150 mg PO HS PRN 10/02/14 04/20/19 History Vitamin E (Dl,Tocopheryl Acet) 400 unit PO HS 10/02/14 04/20/19 History [Vitamin E] Warfarin [Coumadin] 5 mg PO SUTUWEFRSA@1800 10/02/14 04/20/19 History Aspirin [Adult Low Dose Aspirin EC] 81 mg PO DAILY 01/13/16 04/20/19 History Albuterol Inhaler [Ventolin Hfa 2 puff INHALATION RT-Q4H PRN 06/11/16 04/20/19 History Inhaler] Cholecalciferol [Vitamin D3 (25 2,000 unit PO DAILY 10/05/16 04/20/19 History Mcg = 1000 Iu)] Carvedilol [Coreg] 6.25 mg PO BID 12/11/16 04/20/19 History Vitamin B Complex 1 cap PO DAILY 06/08/18 04/20/19 History Ezetimibe [Zetia] 10 mg PO HS 04/19/19 04/20/19 History Isosorbide Mononitrate ER [Imdur] 60 mg PO DAILY 04/19/19 04/20/19 History Warfarin Sodium [Coumadin] 4 mg PO MOTH@1800 04/19/19 04/20/19 History Allergies Allergy/AdvReac Type Severity Reaction Status Date / Time benazepril HCl Allergy Wheezing Verified 04/20/19 00:59 [From Lotensin] fluticasone Allergy mouth sores Verified 04/20/19 00:59 [From Advair Diskus] gemfibrozil [From Lopid] Allergy Rash/Hives Verified 04/20/19 00:59 metoprolol [From Lopressor] Allergy Hallucinati Verified 04/20/19 00:59 ons montelukast Allergy peeling Verified 04/20/19 00:59 skin and rash/CONFUSION salmeterol Allergy mouth sores Verified 04/20/19 00:59 [From Advair Diskus] sulfamethoxazole Allergy Swelling Verified 04/20/19 00:59 [From Bactrim] trimethoprim [From Bactrim] Allergy Swelling Verified 04/20/19 00:59 amlodipine besylate AdvReac Swelling Verified 04/20/19 00:59 [From Norvasc] atorvastatin calcium AdvReac Nausea & Verified 04/20/19 00:59 [From Lipitor] Vomiting esomeprazole magnesium AdvReac Cough Verified 04/20/19 00:59 [From Nexium] pravastatin AdvReac MUSCLE Verified 04/20/19 00:59 PAIN AND STOMACH CRAMPS procaine HCl [From Novocain] AdvReac JITTERY Verified 04/20/19 00:59 Physical Exam Vitals: Vital Signs Temp Pulse Pulse Resp BP BP BP 04/20/19 07:40 97.5 F L 53 L 18 144/77 04/20/19 04:00 97.4 F L 61 18 123/59 04/20/19 00:00 97.4 F L 73 18 168/96 04/19/19 23:49 67 18 154/91 04/19/19 23:06 97.5 F L 73 19 151/98 04/19/19 21:55 71 19 170/92 04/19/19 21:21 156/115 04/19/19 21:01 97.6 F 98 18 165/114 Pulse Ox 04/20/19 07:40 95 04/20/19 04:00 93 L 04/20/19 00:00 98 04/19/19 23:49 96 04/19/19 23:06 99 04/19/19 21:55 96 04/19/19 21:21 04/19/19 21:01 95 Intake and Output 04/19/19 04/20/19 04/20/19 22:59 06:59 14:59 Other: Voiding Method Toilet # Voids 1 Weight 81.193 kg Results 04/19/19 21:16 04/19/19 21:16 Cardiac Enzymes 04/19/19 04/19/19 04/20/19 Range/Units 21:16 21:16 03:33 AST 39 H (14-36) U/L Troponin I <0.012 <0.012 (0.000-0.034) ng/mL Coagulation 04/19/19 Range/Units 21:16 PT 27.4 H (9.0-12.0) sec APTT 40.1 H (22.0-30.0) sec Lipids 04/20/19 Range/Units 03:33 Triglycerides 255 H (<150) mg/dL Cholesterol 160 (<200) mg/dL HDL Cholesterol 46 (40-60) mg/dL CBC 04/19/19 Range/Units 21:16 WBC 7.0 (3.8-10.6) k/uL RBC 4.85 (3.80-5.40) m/uL Hgb 14.9 (11.4-16.0) gm/dL Hct 44.1 (34.0-46.0) % Plt Count 225 (150-450) k/uL Comprehensive Metabolic Panel 04/19/19 Range/Units 21:16 Sodium 140 (137-145) mmol/L Potassium 4.2 (3.5-5.1) mmol/L Chloride 102 (98-107) mmol/L Carbon Dioxide 30 (22-30) mmol/L BUN 16 (7-17) mg/dL Creatinine 1.01 (0.52-1.04) mg/dL Glucose 111 H (74-99) mg/dL Calcium 9.7 (8.4-10.2) mg/dL AST 39 H (14-36) U/L ALT 35 (9-52) U/L Alkaline Phosphatase 104 (38-126) U/L Total Protein 8.1 (6.3-8.2) g/dL Albumin 4.6 (3.5-5.0) g/dL Current Medications Generic Name Dose Route Start Last Admin Trade Name Freq PRN Reason Stop Dose Admin Aspirin 325 mg 04/20/19 09:00 Aspirin PO DAILY JOSH Nitroglycerin 0.4 mg 04/19/19 23:21 Nitrostat SUBLINGUAL Q5M PRN Chest Pain Intake and Output 04/19/19 04/20/19 04/20/19 22:59 06:59 14:59 Other: Voiding Method Toilet # Voids 1 Weight 81.193 kg 04/19/19 21:16 04/19/19 21:16
--- NOTE | 2019-04-20 11:30 | P.HPIM ---
History of Present Illness H&P Date: 04/20/19 This is an 83-year-old female patient of Dr. Choudhury. Patient presented to the ER yesterday, on 04/19/2019, with episode of chest pain. Patient states that chest pain started on when she stepped outside to go get the mail. Once she noticed the pain, she went back inside and sat down. She described the chest pain is mild midsternal, with tightness and heaviness lasting a few hours. She denied any radiation, nausea, dizziness, headache. Patient has a history of atrial fibrillation, asthma, coronary artery disease, heart failure, CVA/TIA, GERD with reflux, hyperlipidemia, hypertension. On 04/20/2019 patient is alert and oriented 3. She denies any chest pain. She denies any pain to lower extremities. Patient does report shortness of breath with activity but states this is her baseline. She denies fevers. She denies, nausea ,vomiting, diarrhea. Patient is tolerating regular diet. No urinary frequency, burning. Review of Systems Please refer to HPI otherwise unremarkable Past Medical History Past Medical History: Atrial Fibrillation, Asthma, Coronary Artery Disease (CAD), Heart Failure, CVA/TIA, GERD/Reflux, GI Bleed, Hyperlipidemia, Hypertension, Pneumonia Additional Past Medical History / Comment(s): osteoporosis, hx migraines, TIA- no effects, swelling in ankles, hx ulcer, hiatal hernia, arthritis, History of Any Multi-Drug Resistant Organisms: None Reported Past Surgical History: Breast Surgery, Cholecystectomy, Heart Catheterization, Hysterectomy, Tonsillectomy Additional Past Surgical History / Comment(s): left breast biopsies, left breat cyst removed, left carotid endarterectomy, bilateral cataract surgery Past Anesthesia/Blood Transfusion Reactions: Motion Sickness Past Psychological History: No Psychological Hx Reported Smoking Status: Former smoker Past Alcohol Use History: None Reported Past Drug Use History: None Reported - Past Family History Son(s) Family Medical History: Cancer Additional Family Medical History / Comment(s): heart valve replacement, colon CA, heart murmur, heart failure since been resolved Mother Family Medical History: Coronary Artery Disease (CAD), Myocardial Infarction ([place]) Father Family Medical History: CVA/TIA, Hypertension, Myocardial Infarction ([place]) Medications and Allergies Home Medications Medication Instructions Recorded Confirmed Type Docusate [Colace] 100 mg PO DAILY 10/02/14 04/20/19 History Furosemide [Lasix] 20 mg PO Q48H PRN 10/02/14 04/20/19 History Loratadine [Claritin] 10 mg PO DAILY PRN 10/02/14 04/20/19 History Nitroglycerin Sl Tabs [Nitrostat] 0.4 mg SUBLINGUAL Q5M PRN 10/02/14 04/20/19 History [place]-3 Fatty Acids/Fish Oil [Fish 2 mg PO DAILY 10/02/14 04/20/19 History Oil 1,000 mg Softgel] Ranitidine HCl [Zantac] 150 mg PO HS PRN 10/02/14 04/20/19 History Vitamin E (Dl,Tocopheryl Acet) 400 unit PO HS 10/02/14 04/20/19 History [Vitamin E] Warfarin [Coumadin] 5 mg PO SUTUWEFRSA@1800 10/02/14 04/20/19 History Aspirin [Adult Low Dose Aspirin EC] 81 mg PO DAILY 01/13/16 04/20/19 History Albuterol Inhaler [Ventolin Hfa 2 puff INHALATION RT-Q4H PRN 06/11/16 04/20/19 History Inhaler] Cholecalciferol [Vitamin D3 (25 2,000 unit PO DAILY 10/05/16 04/20/19 History Mcg = 1000 Iu)] Carvedilol [Coreg] 6.25 mg PO BID 12/11/16 04/20/19 History Vitamin B Complex 1 cap PO DAILY 06/08/18 04/20/19 History Ezetimibe [Zetia] 10 mg PO HS 04/19/19 04/20/19 History Isosorbide Mononitrate ER [Imdur] 60 mg PO DAILY 04/19/19 04/20/19 History Warfarin Sodium [Coumadin] 4 mg PO MOTH@1800 04/19/19 04/20/19 History Allergies Allergy/AdvReac Type Severity Reaction Status Date / Time benazepril HCl Allergy Wheezing Verified 04/20/19 00:59 [From Lotensin] fluticasone Allergy mouth sores Verified 04/20/19 00:59 [From Advair Diskus] gemfibrozil [From Lopid] Allergy Rash/Hives Verified 04/20/19 00:59 metoprolol [From Lopressor] Allergy Hallucinati Verified 04/20/19 00:59 ons montelukast Allergy peeling Verified 04/20/19 00:59 skin and rash/CONFUSION salmeterol Allergy mouth sores Verified 04/20/19 00:59 [From Advair Diskus] sulfamethoxazole Allergy Swelling Verified 04/20/19 00:59 [From Bactrim] trimethoprim [From Bactrim] Allergy Swelling Verified 04/20/19 00:59 amlodipine besylate AdvReac Swelling Verified 04/20/19 00:59 [From Norvasc] atorvastatin calcium AdvReac Nausea & Verified 04/20/19 00:59 [From Lipitor] Vomiting esomeprazole magnesium AdvReac Cough Verified 04/20/19 00:59 [From Nexium] pravastatin AdvReac MUSCLE Verified 04/20/19 00:59 PAIN AND STOMACH CRAMPS procaine HCl [From Novocain] AdvReac JITTERY Verified 04/20/19 00:59 Physical Exam Vitals: Vital Signs Temp Pulse Pulse Resp BP BP BP 04/20/19 07:40 97.5 F L 53 L 18 144/77 04/20/19 04:00 97.4 F L 61 18 123/59 04/20/19 00:00 97.4 F L 73 18 168/96 04/19/19 23:49 67 18 154/91 04/19/19 23:06 97.5 F L 73 19 151/98 04/19/19 21:55 71 19 170/92 04/19/19 21:21 156/115 04/19/19 21:01 97.6 F 98 18 165/114 Pulse Ox 04/20/19 07:40 95 04/20/19 04:00 93 L 04/20/19 00:00 98 04/19/19 23:49 96 04/19/19 23:06 99 04/19/19 21:55 96 04/19/19 21:21 04/19/19 21:01 95 Intake and Output 04/19/19 04/20/19 04/20/19 22:59 06:59 14:59 Other: Voiding Method Toilet Toilet # Voids 1 1 Weight 81.193 kg Head normocephalic Neck supple Lungs clear to auscultation bilaterally no wheezing or crackles Heart regular rate and rhythm S1-S2, no rub or gallop Abdomen is soft nontender nondistended positive bowel sounds no hepatosplenomegaly Extremities no edema Neuro alert and orientated to 3 Results CBC & Chem 7: 04/19/19 21:16 04/19/19 21:16 Labs: Abnormal Lab Results - Last 24 Hours (Table) 04/19/19 04/19/19 04/20/19 Range/Units 21:16 21:16 03:33 PT 27.4 H (9.0-12.0) sec INR 2.8 H (<1.2) APTT 40.1 H (22.0-30.0) sec D-Dimer 1.34 H (<0.60) mg/L FEU Glucose 111 H (74-99) mg/dL AST 39 H (14-36) U/L Triglycerides 255 H (<150) mg/dL 04/20/19 Range/Units 09:16 PT 30.6 H (9.0-12.0) sec INR 3.2 H (<1.2) APTT (22.0-30.0) sec D-Dimer (<0.60) mg/L FEU Glucose (74-99) mg/dL AST (14-36) U/L Triglycerides (<150) mg/dL Thrombosis Risk Factor Assmnt - Choose All That Apply Any of the Below Risk Factors Present?: Yes Each Factor Represents 1 point: Obesity (BMI >25), Swollen legs (current) Other Risk Factors: Yes Each Risk Factor Represents 3 Points: Age 75 years or older Other congenital or acquired thrombophilia - If yes, enter type in comment: No Thrombosis Risk Factor Assessment Total Risk Factor Score: 5 Thrombosis Risk Factor Assessment Level: High Risk Assessment and Plan Assessment: 1. Chest pain. Presented with midsternal chest pain without radiation. Troponin negative. EKG is obtained, shows left bundle branch block and atrial fibrillation. Chest x-ray showed borderline cardiomegaly otherwise negative. Cardiology consulted and echo pending. Stress test recently completed outpatient with Dr. Wilcox. 2. Chronic persistent Atrial fibrillation. Known history. Patient is maintained on Coumadin for anticoagulation. INR is 3.2 up from 2.8. Will hold p.m. dose of Coumadin. 3. History of TIA. No residual effects 4. History of essential hypertension. Blood pressure elevated on admission, cardiology to adjust medications. On home blood pressure medications. 5. History of asthma. Chest x-ray completed, showed borderline cardiomegaly. No cardiopulmonary disease. 6. History of GERD with reflux. On Pepcid 7. History of hyperlipidemia. Increased triglycerides. Taking Zetia. 8. Known history of carotid stenosis. Left carotid endarterectomy completed. CT angiogram neck completed on 06/09/2018 showing right carotid has severe plaque formation on the right internal carotid artery and subtotal occlusion. Patient has been following with Dr. Vick regarding management of right stenosis. 9. History of pneumonia Pepcid for GI prophylaxis. DVT prophylaxis, Patient on warfarin I performed an examination of the patient and discussed their management with the Nurse Practitioner. I have reviewed the Nurse Practitioner's notes and agree with the documented findings and plan of care Time with Patient: Greater than 30 (I performed an examination of the patient and discussed their management with the Nurse Practitioner. I have reviewed the Nurse Practitioner's notes and agree with the documented findings and plan of care. Greater than 60% of the total time spent in counseling and coordination of care)
[2019-04-20 11:32] VITALS: BP 152/72; PULSE 99; TEMP 97.7
--- NOTE | 2019-04-20 12:00 | ECHOF ---
Referral Reason:cp, sob MEASUREMENTS -------- HEIGHT: 160.0 cm WEIGHT: 81.2 kg BP: 144/7 RVIDd: 2.9 cm (< 3.3) IVSd: 1.4 cm (0.6 - 1.1) LVIDd: 3.3 cm (3.9 - 5.3) LVPWd: 1.4 cm (0.6 - 1.1) IVSs: 1.9 cm LVIDs: 2.7 cm LVPWs: 1.6 cm LA Diam: 3.8 cm (2.7 - 3.8) LAESV Index (A-L): 26.87 ml/m Ao Diam: 3.4 cm (2.0 - 3.7) AV Cusp: 1.3 cm (1.5 - 2.6) MV EXCURSION: 13.341 mm (> 18.000) MV EF SLOPE: 77 mm/s (70 - 150) EPSS: 0.9 cm AV maxP.16 mmHg AV meanP.77 mmHg RAP: 15.00 mmHg RVSP: 43.48 mmHg TAPSE: 28.46 mm FINDINGS -------- Atrial fibrillation. This was a technically good study. The left ventricular size is normal. There is moderate concentric left ventricular hypertrophy. O verall left ventricular systolic function is low-normal with, an EF between 50 - 55 %. The right ventricle is normal in size. Normal LA size by volume 22+/-6 ml/m2. The right atrium is normal in size. Interatrial and interventricular septum intact. Aortic valve is trileaflet and is moderately thickened. Trace amount of aortic regurgitation. Th ere is mild aortic stenosis present. Peak/mean gradient across the Aortic Valve is 12.16mmHg / 6.77 mmHg. The mitral valve leaflets are mildly thickened. Mild mitral annular calcification present. Mild m itral regurgitation is present. Moderate tricuspid regurgitation present. There is mild pulmonary hypertension. The right ventric ular systolic pressure, as measured by Doppler, is 43.48mmHg. Trace/mild (physiologic) pulmonic regurgitation. The aortic root size is normal. The inferior vena cava is dilated with no significant inspiratory collapse which is consistent estima ernie right atrial pressure of >20 mmHg. There is no pericardial effusion. CONCLUSIONS -------- 1. Atrial fibrillation. 2. This was a technically good study. 3. The left ventricular size is normal. 4. There is moderate concentric left ventricular hypertrophy. 5. Overall left ventricular systolic function is low-normal with, an EF between 50 - 55 %. 6. The right ventricle is normal in size. 7. Normal LA size by volume 22+/-6 ml/m2. 8. The right atrium is normal in size. 9. Interatrial and interventricular septum intact. 10. Aortic valve is trileaflet and is moderately thickened. 11. Trace amount of aortic regurgitation. 12. There is mild aortic stenosis present. 13. Peak/mean gradient across the Aortic Valve is 12.16mmHg / 6.77mmHg. 14. The mitral valve leaflets are mildly thickened. 15. Mild mitral annular calcification present. 16. Mild mitral regurgitation is present. 17. Moderate tricuspid regurgitation present. 18. There is mild pulmonary hypertension. 19. The right ventricular systolic pressure, as measured by Doppler, is 43.48mmHg. 20. Trace/mild (physiologic) pulmonic regurgitation. 21. The aortic root size is normal. 22. The inferior vena cava is dilated with no significant inspiratory collapse which is consistent es timated right atrial pressure of >20 mmHg. 23. There is no pericardial effusion. ACLS NURSE: Cony Kessler RDCS
--- NOTE | 2019-04-20 14:05 | P.DS ---
Providers Date of admission: 04/19/19 23:21 Expected date of discharge: 04/20/19 Attending physician: Sandra Villa Consults: 04/19/19 23:21 Consult Physician Urgent Consulting Provider: Alison Gil Consult Reason/Comments: cp Do you want consulting provider notified?: Yes Primary care physician: Tahira Choudhury Hospital Course: Discharge diagnosis 1. Chest pain. Presented with midsternal chest pain without radiation. Troponin negative. EKG is obtained, shows left bundle branch block and atrial fibrillation. Chest x-ray showed borderline cardiomegaly otherwise negative. Cardiology consulted. Stress test recently completed outpatient with Dr. Wilcox. Cardiology recommending patient go home on low dose losartan for better blood pressure control but due to patient's previous experience with side effects patient cannot tolerate medication. Instead we will increase dose of Coreg from 6.25 to 12.5. Repeat echo is stable. She has been cleared by cardiology for discharge. 2. Chronic persistent Atrial fibrillation. Known history. Patient is maintained on Coumadin for anticoagulation. INR is 3.2 up from 2.8. Will hold p.m. dose of Coumadin. 3. History of TIA. No residual effects 4. History of essential hypertension. Blood pressure elevated on admission, cardiology to adjust medications. On home blood pressure medications. 5. History of asthma. Chest x-ray completed, showed borderline cardiomegaly. No cardiopulmonary disease. 6. History of GERD with reflux. On Pepcid 7. History of hyperlipidemia. Increased triglycerides. Taking Zetia. 8. Known history of carotid stenosis. Left carotid endarterectomy completed. CT angiogram neck completed on 06/09/2018 showing right carotid has severe plaque formation on the right internal carotid artery and subtotal occlusion. Patient has been following with Dr. Vick regarding management of right stenosis. 9. History of pneumonia Hospital course This is an 83-year-old female patient of Dr. Choudhury. Patient presented to the ER yesterday, on 04/19/2019, with episode of chest pain. Patient states that chest pain started on when she stepped outside to go get the mail. Once she noticed the pain, she went back inside and sat down. She described the chest pain is mild midsternal, with tightness and heaviness lasting a few hours. She denied any radiation, nausea, dizziness, headache. Patient has a history of atrial fibrillation, asthma, coronary artery disease, heart failure, CVA/TIA, GERD with reflux, hyperlipidemia, hypertension. On 04/20/2019 patient is alert and oriented 3. She denies any chest pain. She denies any pain to lower extremities. Patient does report shortness of breath with activity but states this is her baseline. She denies fevers. She denies, nausea ,vomiting, diarrhea. Patient is tolerating regular diet. No urinary frequency, burning. I performed an examination of the patient and discussed their management with the Nurse Practitioner. I have reviewed the Nurse Practitioner's notes and agree with the documented findings and plan of care Patient Condition at Discharge: Stable Plan - Discharge Summary Discharge Rx Participant: No New Discharge Prescriptions: New Carvedilol [Coreg*] 12.5 mg PO BID-W/MEALS 30 Days #60 tab Continue Warfarin [Coumadin] 5 mg PO SUTUWEFRSA@1800 [place]-3 Fatty Acids/Fish Oil [Fish Oil 1,000 mg Softgel] 2 mg PO DAILY Furosemide [Lasix] 20 mg PO Q48H PRN PRN Reason: Edema Loratadine [Claritin] 10 mg PO DAILY PRN PRN Reason: Allergy Symptoms Nitroglycerin Sl Tabs [Nitrostat] 0.4 mg SUBLINGUAL Q5M PRN PRN Reason: Chest Pain Vitamin E (Dl,Tocopheryl Acet) [Vitamin E] 400 unit PO HS Docusate [Colace] 100 mg PO DAILY Ranitidine HCl [Zantac] 150 mg PO HS PRN PRN Reason: Heartburn Aspirin [Adult Low Dose Aspirin EC] 81 mg PO DAILY Albuterol Inhaler [Ventolin Hfa Inhaler] 2 puff INHALATION RT-Q4H PRN PRN Reason: Shortness Of Breath Cholecalciferol [Vitamin D3 (25 Mcg = 1000 Iu)] 2,000 unit PO DAILY Vitamin B Complex 1 cap PO DAILY Isosorbide Mononitrate ER [Imdur] 60 mg PO DAILY Ezetimibe [Zetia] 10 mg PO HS Warfarin Sodium [Coumadin] 4 mg PO MOTH@1800 Discontinued Carvedilol [Coreg] 6.25 mg PO BID Discharge Medication List Docusate [Colace] 100 mg PO DAILY 10/02/14 [History] Furosemide [Lasix] 20 mg PO Q48H PRN 10/02/14 [History] Loratadine [Claritin] 10 mg PO DAILY PRN 10/02/14 [History] Nitroglycerin Sl Tabs [Nitrostat] 0.4 mg SUBLINGUAL Q5M PRN 10/02/14 [History] [place]-3 Fatty Acids/Fish Oil [Fish Oil 1,000 mg Softgel] 2 mg PO DAILY 10/02/14 [History] Ranitidine HCl [Zantac] 150 mg PO HS PRN 10/02/14 [History] Vitamin E (Dl,Tocopheryl Acet) [Vitamin E] 400 unit PO HS 10/02/14 [History] Warfarin [Coumadin] 5 mg PO SUTUWEFRSA@1800 10/02/14 [History] Aspirin [Adult Low Dose Aspirin EC] 81 mg PO DAILY 01/13/16 [History] Albuterol Inhaler [Ventolin Hfa Inhaler] 2 puff INHALATION RT-Q4H PRN 06/11/16 [History] Cholecalciferol [Vitamin D3 (25 Mcg = 1000 Iu)] 2,000 unit PO DAILY 10/05/16 [History] Vitamin B Complex 1 cap PO DAILY 06/08/18 [History] Ezetimibe [Zetia] 10 mg PO HS 04/19/19 [History] Isosorbide Mononitrate ER [Imdur] 60 mg PO DAILY 04/19/19 [History] Warfarin Sodium [Coumadin] 4 mg PO MOTH@1800 04/19/19 [History] Carvedilol [Coreg*] 12.5 mg PO BID-W/MEALS 30 Days #60 tab 04/20/19 [Rx] Follow up Appointment(s)/Referral(s): Tahira Choudhury MD [Primary Care Provider] - 1-2 days Silver Aranda MD [STAFF PHYSICIAN] - 2 Weeks Activity/Diet/Wound Care/Special Instructions: Patient to hold Coumadin dose tonight Activity as tolerated Heart healthy diet Discharge Disposition: HOME SELF-CARE
[2019-04-20] MEDS ORDERED: CARVEDILOL 6.25 MG TAB PO SCH (17:30)
[2019-04-20] MEDS ORDERED: CARVEDILOL 12.5 MG TAB PO SCH (17:30)
[2019-04-20] MEDS ORDERED: WARFARIN 2 MG TAB PO SCH (18:00)
[2019-04-20] MEDS ORDERED: EZETIMIBE 10 MG TAB PO SCH (21:00)
[2019-04-20] MEDS ORDERED: VITAMIN E (DL,TOCOPHERYL ACET) 400 UNIT CAP PO SCH (21:00)
[2019-04-20] MEDS ORDERED: FAMOTIDINE 20 MG TAB PO PRN (21:00)
[2019-04-21] MEDS ORDERED: FUROSEMIDE 20 MG TAB PO PRN (09:00)
[2019-04-21] MEDS ORDERED: ASPIRIN 81 MG PO SCH (09:00)
[2019-04-21] MEDS ORDERED: WARFARIN 5 MG TAB PO SCH (18:00)
== END 2019-04-20 15:50 | disposition home or self-care (01) ==
LOC: EC 20:59 → 1SOBS 23:21
PROVIDERS: ADMIT Internal Medicine; ATTEND Internal Medicine
DX: R07.89 Other chest pain (principal); I48.19 Other persistent atrial fibrillation; I11.0 Hypertensive heart disease with heart failure; I50.9 Heart failure, unspecified; I35.0 Nonrheumatic aortic (valve) stenosis; E78.5 Hyperlipidemia, unspecified; I65.21 Occlusion and stenosis of right carotid artery; J45.909 Unspecified asthma, uncomplicated; I44.7 Left bundle-branch block, unspecified; I73.9 Peripheral vascular disease, unspecified; M81.0 Age-related osteoporosis without current pathological fracture; K21.9 Gastro-esophageal reflux disease without esophagitis; I25.10 Atherosclerotic heart disease of native coronary artery without angina pectoris; G43.909 Migraine, unspecified, not intractable, without status migrainosus; K44.9 Diaphragmatic hernia without obstruction or gangrene; M19.90 Unspecified osteoarthritis, unspecified site; E66.9 Obesity, unspecified; Z68.31 Body mass index [BMI] 31.0-31.9, adult; E78.1 Pure hyperglyceridemia; Z79.01 Long term (current) use of anticoagulants; Z79.82 Long term (current) use of aspirin; Z79.899 Other long term (current) drug therapy; Z88.4 Allergy status to anesthetic agent; Z88.1 Allergy status to other antibiotic agents; Z88.2 Allergy status to sulfonamides; Z88.8 Allergy status to other drugs, medicaments and biological substances; Z87.19 Personal history of other diseases of the digestive system; Z87.01 Personal history of pneumonia (recurrent); Z86.73 Personal history of transient ischemic attack (TIA), and cerebral infarction without residual deficits; Z90.49 Acquired absence of other specified parts of digestive tract; Z90.710 Acquired absence of both cervix and uterus; Z98.42 Cataract extraction status, left eye; Z98.41 Cataract extraction status, right eye; Z87.891 Personal history of nicotine dependence; Z82.49 Family history of ischemic heart disease and other diseases of the circulatory system; Z80.0 Family history of malignant neoplasm of digestive organs; Z82.3 Family history of stroke
CPT/HCPCS: 93005 ×2; 96360; 96361; 99285; 36415; 93306; 85379; 83880; 80061; 80053; 83690; 83735; 84484 ×2; 85025; 85610 ×2; 85730; 71046; G0378 ×2

== ENCOUNTER 2021-07-25 11:00 | Observation (INO) | payer MEDICARE ==
--- NOTE | 2021-07-25 11:21 | ED ---
General Adult HPI - General Source: patient Mode of arrival: EMS Limitations: no limitations <Skylar Fortune - Last Filed: 07/25/21 14:28> <Sury Pastrana - Last Filed: 08/02/21 23:59> - General Chief complaint: Syncope Stated complaint: near syncope Time Seen by Provider: 07/25/21 11:07 - History of Present Illness Initial comments: This 85-year-old female with past medical history of atrial fibrillation present s emergency department after a syncopal episode at her primary care office this morning. Patient states she was at her PCP around 9:30 and went from sitting to standing before her legs "gave out". She states a staff member was there who caught her and lowered her to the floor. She denies any loss of consciousness, however she states that the staff told her she was out of it for a short time. Patient states she was there to get her Coumadin level checked. She denies any shaking or convulsions after falling. Patient denies any dizziness or lightheadedness. She states on ambulance she did have a little bit of chest pressure that has since resolved. Patiently currently denies any chest pain, shortness of breath, abdominal pain, dizziness, nausea, vomiting, headache, fever. (Skylar Fortune) - Related Data Home Medications Medication Instructions Recorded Confirmed Docusate [Colace] 100 mg PO DAILY 10/02/14 07/25/21 Furosemide [Lasix] 20 mg PO DAILY 10/02/14 07/25/21 Nitroglycerin Sl Tabs [Nitrostat] 0.4 mg SL Q5M PRN 10/02/14 07/25/21 [place]-3 Fatty Acids/Fish Oil [Fish 2 cap PO HS 10/02/14 07/25/21 Oil 1,000 mg Softgel] Aspirin [Adult Low Dose Aspirin EC] 81 mg PO HS 01/13/16 07/25/21 Cholecalciferol [Vitamin D3 (25 100 mcg PO DAILY 10/05/16 07/25/21 Mcg = 1000 Iu)] Vitamin B Complex 1 cap PO DAILY 06/08/18 07/25/21 Ezetimibe [Zetia] 10 mg PO HS 04/19/19 07/25/21 Isosorbide Mononitrate ER [Imdur] 90 mg PO DAILY 04/19/19 07/25/21 Irbesartan [Avapro] 112.5 mg PO HS 07/25/21 07/25/21 Vitamin E [Vitamin E (1000 Iu = 1,000 unit PO HS 07/25/21 07/25/21 450 MG)] Zinc Sulfate [Orazinc] 25 mg PO DAILY 07/25/21 07/25/21 Previous Rx's Medication Instructions Recorded Warfarin [Coumadin] 5 mg PO DAILY 30 Days #30 tab 07/27/21 carvediloL [Coreg] 6.25 mg PO BID-W/MEALS tab 07/27/21 Allergies Allergy/AdvReac Type Severity Reaction Status Date / Time benazepril HCl Allergy Wheezing Verified 07/25/21 12:38 [From Lotensin] fluticasone Allergy mouth sores Verified 07/25/21 12:38 [From Advair Diskus] gemfibrozil [From Lopid] Allergy Rash/Hives Verified 07/25/21 12:38 metoprolol [From Lopressor] Allergy Hallucinati Verified 07/25/21 12:38 ons montelukast Allergy peeling Verified 07/25/21 12:38 skin and rash/CONFUSION salmeterol Allergy mouth sores Verified 07/25/21 12:38 [From Advair Diskus] sulfamethoxazole Allergy Anaphylaxis Verified 07/25/21 12:38 [From Bactrim] trimethoprim [From Bactrim] Allergy Swelling Verified 07/25/21 12:38 amlodipine besylate AdvReac Foot Verified 07/25/21 12:38 [From Norvasc] Swelling atorvastatin calcium AdvReac Abdominal Verified 07/25/21 12:38 [From Lipitor] Pain esomeprazole magnesium AdvReac Cough Verified 07/25/21 12:38 [From Nexium] pravastatin AdvReac MUSCLE Verified 07/25/21 12:38 PAIN AND STOMACH CRAMPS procaine HCl [From Novocain] AdvReac JITTERY Verified 07/25/21 12:38 Review of Systems ROS Other: All systems not noted in ROS Statement are negative. <Skylar Fortune - Last Filed: 07/25/21 14:28> ROS Other: All systems not noted in ROS Statement are negative. <uSry Pastrana - Last Filed: 08/02/21 23:59> ROS Statement: Those systems with pertinent positive or pertinent negative responses have been documented in the HPI. Past Medical History Past Medical History: Atrial Fibrillation, Asthma, Coronary Artery Disease (CAD), Heart Failure, CVA/TIA, GERD/Reflux, GI Bleed, Hyperlipidemia, Hypertension, Pneumonia Additional Past Medical History / Comment(s): osteoporosis, hx migraines, TIA- no effects, swelling in ankles, hx ulcer, hiatal hernia, arthritis, History of Any Multi-Drug Resistant Organisms: None Reported Past Surgical History: Breast Surgery, Cholecystectomy, Heart Catheterization, Hysterectomy, Tonsillectomy Additional Past Surgical History / Comment(s): left breast biopsies, left breat cyst removed, left carotid endarterectomy, bilateral cataract surgery Past Anesthesia/Blood Transfusion Reactions: Motion Sickness Past Psychological History: No Psychological Hx Reported Smoking Status: Former smoker Past Alcohol Use History: None Reported Past Drug Use History: None Reported - Past Family History Son(s) Family Medical History: Cancer Additional Family Medical History / Comment(s): heart valve replacement, colon CA, heart murmur, heart failure since been resolved Mother Family Medical History: Coronary Artery Disease (CAD), Myocardial Infarction ([place]) Father Family Medical History: CVA/TIA, Hypertension, Myocardial Infarction ([place]) <Skylar Fortune - Last Filed: 07/25/21 14:28> General Exam Limitations: no limitations General appearance: alert, in no apparent distress Head exam: Present: atraumatic, normocephalic, normal inspection Eye exam: Present: EOMI ENT exam: Present: mucous membranes moist Neck exam: Present: normal inspection, full ROM Respiratory exam: Present: normal lung sounds bilaterally. Absent: respiratory distress, wheezes, rales, rhonchi, stridor Cardiovascular Exam: Present: regular rate, irregular rhythm (Irregular rate and irregular rhythm (patient's baseline)), normal heart sounds. Absent: systolic murmur, diastolic murmur, rubs, gallop, clicks GI/Abdominal exam: Present: soft, normal bowel sounds. Absent: distended, tenderness, guarding, rebound, rigid Extremities exam: Present: full ROM. Absent: joint swelling, calf tenderness Back exam: Present: full ROM. Absent: CVA tenderness (R), CVA tenderness (L) Neurological exam: Present: alert, oriented X3, CN II-XII intact Psychiatric exam: Present: normal affect, normal mood Skin exam: Present: warm, dry, intact, normal color. Absent: rash <Skylar Fortune - Last Filed: 07/25/21 14:28> Course Vital Signs 07/25/21 07/25/21 07/25/21 11:02 13:39 15:00 Temperature 98.2 F 97.5 F L Pulse Rate 88 84 Pulse Rate [ 91 Right Sitting] Respiratory 18 18 18 Rate Blood Pressure 110/74 165/95 Blood Pressure 148/56 [Right Arm] O2 Sat by Pulse 93 L 98 98 Oximetry EKG Findings - EKG Comments: EKG Findings:: EKG: Ventricular rate 80 bpm. QRS duration 78. QT/QTc 356/410. Atrial fibrillationsimilar compared to prior EKGs <Skylar Fortune - Last Filed: 07/25/21 14:28> Medical Decision Making - Lab Data Result diagrams: 07/25/21 11:32 07/25/21 11:32 <Skylar Fortune - Last Filed: 07/25/21 14:28> - Lab Data Result diagrams: 07/26/21 08:04 07/26/21 08:04 <Sury Pastrana - Last Filed: 08/02/21 23:59> - Medical Decision Making This 85-year-old female with past medical history of atrial fibrillation since to the emergency Department after syncopal episode at her primary care doctor. EKG and chest x-ray showed no abnormalities or changes from prior. Labs revealed PT 18.3 INR 1.8 with no change to prior. Coronavirus detected. Patient admitted to the hospital for further workup for syncopal episode. Spoke to , he agreed to admit patient to his services. Patient to get echocardiogram and carotid Doppler and assessed by cardiology while in the hospital. Discussed this case with my attending, Dr. Pastrana. Patient verbally agreed to the plan. Patient refused COVID-19 antibody infusion. (Skylar Fortune) I was available for consultation in the emergency department. The history and physical exam were done by the midlevel provider. I was consulted for this patie nts care. I reviewed the case with the midlevel provider and based on their presentation of the patient, I agree with the assessment, medical decision making and plan of care as documented. Chart was dictated using [employer] dictation software. Attempts were made to correct any dictation errors however some typographical errors may persist. Patient was seen during a national state of emergency due to the Covid-19 pandemic. (Sury Pastrana) - Lab Data Lab Results 07/25/21 07/25/21 07/25/21 Range/Units 11:32 11:32 11:32 WBC 6.8 (3.8-10.6) k/uL RBC 4.45 (3.80-5.40) m/uL Hgb 13.9 (11.4-16.0) gm/dL Hct 40.9 (34.0-46.0) % MCV 91.8 (80.0-100.0) fL MCH 31.2 (25.0-35.0) pg MCHC 34.0 (31.0-37.0) g/dL RDW 13.2 (11.5-15.5) % Plt Count 146 L (150-450) k/uL MPV 8.1 Neutrophils % 72 % Lymphocytes % 9 % Monocytes % 15 % Eosinophils % 1 % Basophils % 1 % Neutrophils # 4.9 (1.3-7.7) k/uL Lymphocytes # 0.6 L (1.0-4.8) k/uL Monocytes # 1.0 (0-1.0) k/uL Eosinophils # 0.0 (0-0.7) k/uL Basophils # 0.1 (0-0.2) k/uL PT 18.3 H (9.0-12.0) sec INR 1.8 H (<1.2) APTT 29.3 (22.0-30.0) sec D-Dimer (<0.60) mg/L FEU Sodium (137-145) mmol/L Potassium (3.5-5.1) mmol/L Chloride (98-107) mmol/L Carbon Dioxide (22-30) mmol/L Anion Gap mmol/L BUN (7-17) mg/dL Creatinine (0.52-1.04) mg/dL Est GFR (CKD-EPI)AfAm (>60 ml/min/1.73 sqM) Est GFR (CKD-EPI)NonAf (>60 ml/min/1.73 sqM) Glucose (74-99) mg/dL POC Glucose (mg/dL) (75-99) mg/dL POC Glu Therapy Assistant ID Calcium (8.4-10.2) mg/dL Total Bilirubin (0.2-1.3) mg/dL AST (14-36) U/L ALT (4-34) U/L Alkaline Phosphatase (38-126) U/L Troponin I (0.000-0.034) ng/mL Total Protein (6.3-8.2) g/dL Albumin (3.5-5.0) g/dL Urine Color Yellow Urine Appearance Clear (Clear) Urine pH 5.5 (5.0-8.0) Ur Specific [place] 1.011 (1.001-1.035) Urine Protein Negative (Negative) Urine Glucose (UA) Negative (Negative) Urine Ketones Negative (Negative) Urine Blood Negative (Negative) Urine Nitrite Negative (Negative) Urine Bilirubin Negative (Negative) Urine Urobilinogen <2.0 (<2.0) mg/dL Ur Leukocyte Esterase Trace H (Negative) Urine RBC 1 (0-5) /hpf Urine WBC 1 (0-5) /hpf Ur Squamous Epith Cells 2 (0-4) /hpf Urine Bacteria Rare H (None) /hpf Hyaline Casts 24 H (0-2) /lpf Urine Mucus Occasional H (None) /hpf Coronavirus (PCR) (Not Detectd) 07/25/21 07/25/21 07/25/21 Range/Units 11:32 11:32 11:32 WBC (3.8-10.6) k/uL RBC (3.80-5.40) m/uL Hgb (11.4-16.0) gm/dL Hct (34.0-46.0) % MCV (80.0-100.0) fL MCH (25.0-35.0) pg MCHC (31.0-37.0) g/dL RDW (11.5-15.5) % Plt Count (150-450) k/uL MPV Neutrophils % % Lymphocytes % % Monocytes % % Eosinophils % % Basophils % % Neutrophils # (1.3-7.7) k/uL Lymphocytes # (1.0-4.8) k/uL Monocytes # (0-1.0) k/uL Eosinophils # (0-0.7) k/uL Basophils # (0-0.2) k/uL PT (9.0-12.0) sec INR (<1.2) APTT (22.0-30.0) sec D-Dimer (<0.60) mg/L FEU Sodium 130 L (137-145) mmol/L Potassium 4.1 (3.5-5.1) mmol/L Chloride 99 (98-107) mmol/L Carbon Dioxide 28 (22-30) mmol/L Anion Gap 3 mmol/L BUN 21 H (7-17) mg/dL Creatinine 1.33 H (0.52-1.04) mg/dL Est GFR (CKD-EPI)AfAm 42 (>60 ml/min/1.73 sqM) Est GFR (CKD-EPI)NonAf 36 (>60 ml/min/1.73 sqM) Glucose 109 H (74-99) mg/dL POC Glucose (mg/dL) (75-99) mg/dL POC Glu Therapy Assistant ID Calcium 8.7 (8.4-10.2) mg/dL Total Bilirubin 0.8 (0.2-1.3) mg/dL AST 33 (14-36) U/L ALT 29 (4-34) U/L Alkaline Phosphatase 132 H (38-126) U/L Troponin I <0.012 (0.000-0.034) ng/mL Total Protein 6.2 L (6.3-8.2) g/dL Albumin 3.4 L (3.5-5.0) g/dL Urine Color Urine Appearance (Clear) Urine pH (5.0-8.0) Ur Specific [place] (1.001-1.035) Urine Protein (Negative) Urine Glucose (UA) (Negative) Urine Ketones (Negative) Urine Blood (Negative) Urine Nitrite (Negative) Urine Bilirubin (Negative) Urine Urobilinogen (<2.0) mg/dL Ur Leukocyte Esterase (Negative) Urine RBC (0-5) /hpf Urine WBC (0-5) /hpf Ur Squamous Epith Cells (0-4) /hpf Urine Bacteria (None) /hpf Hyaline Casts (0-2) /lpf Urine Mucus (None) /hpf Coronavirus (PCR) Detected A (Not Detectd) 07/25/21 07/25/21 Range/Units 11:32 11:51 WBC (3.8-10.6) k/uL RBC (3.80-5.40) m/uL Hgb (11.4-16.0) gm/dL Hct (34.0-46.0) % MCV (80.0-100.0) fL MCH (25.0-35.0) pg MCHC (31.0-37.0) g/dL RDW (11.5-15.5) % Plt Count (150-450) k/uL MPV Neutrophils % % Lymphocytes % % Monocytes % % Eosinophils % % Basophils % % Neutrophils # (1.3-7.7) k/uL Lymphocytes # (1.0-4.8) k/uL Monocytes # (0-1.0) k/uL Eosinophils # (0-0.7) k/uL Basophils # (0-0.2) k/uL PT (9.0-12.0) sec INR (<1.2) APTT (22.0-30.0) sec D-Dimer 1.58 H (<0.60) mg/L FEU Sodium (137-145) mmol/L Potassium (3.5-5.1) mmol/L Chloride (98-107) mmol/L Carbon Dioxide (22-30) mmol/L Anion Gap mmol/L BUN (7-17) mg/dL Creatinine (0.52-1.04) mg/dL Est GFR (CKD-EPI)AfAm (>60 ml/min/1.73 sqM) Est GFR (CKD-EPI)NonAf (>60 ml/min/1.73 sqM) Glucose (74-99) mg/dL POC Glucose (mg/dL) 106 H (75-99) mg/dL POC Glu Therapy Assistant ID [place] Calcium (8.4-10.2) mg/dL Total Bilirubin (0.2-1.3) mg/dL AST (14-36) U/L ALT (4-34) U/L Alkaline Phosphatase (38-126) U/L Troponin I (0.000-0.034) ng/mL Total Protein (6.3-8.2) g/dL Albumin (3.5-5.0) g/dL Urine Color Urine Appearance (Clear) Urine pH (5.0-8.0) Ur Specific [place] (1.001-1.035) Urine Protein (Negative) Urine Glucose (UA) (Negative) Urine Ketones (Negative) Urine Blood (Negative) Urine Nitrite (Negative) Urine Bilirubin (Negative) Urine Urobilinogen (<2.0) mg/dL Ur Leukocyte Esterase (Negative) Urine RBC (0-5) /hpf Urine WBC (0-5) /hpf Ur Squamous Epith Cells (0-4) /hpf Urine Bacteria (None) /hpf Hyaline Casts (0-2) /lpf Urine Mucus (None) /hpf Coronavirus (PCR) (Not Detectd) Disposition Is patient prescribed a controlled substance at d/c from ED?: No <Skylar Fortune - Last Filed: 07/25/21 14:28> <Sury Pastrana - Last Filed: 08/02/21 23:59> Clinical Impression: Syncope and collapse Disposition: ADMITTED IP TO THIS HOSP Condition: Stable
[2021-07-25 11:51] LABS: Basophils # (A) 0.1 k/uL (0-0.2); Basophils % (A) 1 %; Eosinophils % (A) 1 %; HCT 40.9 % (34.0-46.0); HGB 13.9 gm/dL (11.4-16.0); Lymphocytes # (A) 0.6 k/uL (1.0-4.8); Lymphocytes % (A) 9 %; MCH 31.2 pg (25.0-35.0); MCV 91.8 fL (80.0-100.0); Mean Platelet Volume 8.1; Monocytes % (A) 15 %; Neutrophils # (A) 4.9 k/uL (1.3-7.7); Neutrophils % (A) 72 %; Platelet Count 146 k/uL (150-450); RBC 4.45 m/uL (3.80-5.40); RDW 13.2 % (11.5-15.5); WBC 6.8 k/uL (3.8-10.6)
[2021-07-25 11:53] LABS: Glucose,Whole Blood 106 mg/dL (75-99)
--- NOTE | 2021-07-25 11:53 | XR ---
EXAMINATION TYPE: XR chest 2V DATE OF EXAM: 07/25/2021 COMPARISON: 04/19/2019 INDICATION: Syncope TECHNIQUE: Frontal and lateral views of the chest are obtained. FINDINGS: The heart size is normal. The pulmonary vasculature is normal. The lungs are clear. Hyperinflation flattening the diaphragms compatible with COPD. IMPRESSION: 1. COPD. 2. No acute pulmonary process.
[2021-07-25 11:57] LABS: INR 1.8 (<1.2); Partial Thromboplastin Time 29.3 sec (22.0-30.0); Prothrombin Time 18.3 sec (9.0-12.0)
[2021-07-25 13:02] LABS: Albumin 3.4 g/dL (3.5-5.0); Calcium 8.7 mg/dL (8.4-10.2); Potassium 4.1 mmol/L (3.5-5.1); Total Bilirubin 0.8 mg/dL (0.2-1.3); Total Protein 6.2 g/dL (6.3-8.2)
[2021-07-25] MEDS ORDERED: NALOXONE 0.4 MG/ML 1 ML VIAL IV PRN (13:53)
[2021-07-25 14:26] LABS: Appearance,Urine Clear (Clear); Bacteria,Urine Rare /hpf; Bilirubin,Urine Negative (Negative); Blood,Urine Negative (Negative); Color,Urine Yellow; Glucose,Urine (UA) Negative (Negative); Hyaline Casts,Urine 24 /lpf (0-2); Ketones,Urine Negative (Negative); Leukocyte Esterase,Urine Trace (Negative); Mucus,Urine Occasional /hpf; Nitrite,Urine Negative (Negative); PH, Urine 5.5 (5.0-8.0); Protein,Urine Negative (Negative); RBC,Urine 1 /hpf (0-5); Specific Gravity,Urine 1.011 (1.001-1.035); Squamous Epithelial Cell,Urine 2 /hpf (0-4); Urobilinogen,Urine <2.0 mg/dL (<2.0); WBC,Urine 1 /hpf (0-5)
--- NOTE | 2021-07-25 15:15 | US ---
EXAMINATION TYPE: US carotid duplex BILAT DATE OF EXAM: 07/25/2021 COMPARISON: US 06/09/2018 CLINICAL HISTORY: syncope. history of left endarterectomy EXAM MEASUREMENTS: RIGHT: Peak Systolic Velocity (PSV) cm/sec ----- Right CCA: 21.4 ----- Right ICA: 204.2 ----- Right ECA: 85.4 ICA/CCA ratio: 9.5 RIGHT: End Diastole cm/sec ----- Right CCA: 7.0 ----- Right ICA: 53.2 ----- Right ECA: 0.0 LEFT: Peak Systolic Velocity (PSV) cm/sec ----- Left CCA: 91.1 ----- Left ICA: 97.7 ----- Left ECA: 68.0 ICA/CCA ratio: 1.1 LEFT: End Diastole cm/sec ----- Left CCA: 18.6 ----- Left ICA: 21.9 ----- Left ECA: 8.7 VERTEBRALS (direction of flow): Right Vertebral: Antegrade Left Vertebral: Antegrade Rhythm: Normal Extensive shadowing plaque noted. Elevated velocities right ICA. IMPRESSION: 1. Severe stenosis approximately 70% based on ratios an elevated velocity at the right internal carot id artery. . This appears to be increasing from the comparison study 2018. Additional workup is rec ommended Criteria for Assigning % of Stenosis / Diameter reduction (Estimation based on the indirect measurements of the internal carotid artery velocities (ICA PSV). 1. Normal (no stenosis)=ICA PSV < 125 cm/s: ratio < 2.0: ICA EDV<40 cm/s. 2. Less than 50% stenosis=ICA PSV < 125 cm/s: ratio < 2.0: ICA EDV<40 cm/s. 3. 50 to 69% stenosis=ICA PSV of 125 to 230 cm/s: ration 2.0 ? 4.0: ICA EDV 40-100 cm/s. 4. Greater than 70% stenosis to near occlusion= ICA PSV > 230 cm/s: ratio > 4.0: ICA EDV > 100 cm/s. 5. Near occlusion= ICA PSV velocities may be low or undetectable: variable ratio and ICA EDV. 6. Total occlusion=unable to detect flow.
[2021-07-25] MEDS ORDERED: SODIUM CHLORIDE 0.9% 500 ML 500 ML IV ONE (15:36)
--- NOTE | 2021-07-25 16:14 | CT ---
chest angio for PE DATE OF EXAM: 07/25/2021 COMPARISON: Radiograph same day HISTORY: 85-year-old female Covid, elevated dimer TECHNIQUE: Contiguous axial scanning of the chest performed with IV Contrast, patient injected with 8 0 mL of Isovue 370. Coronal/sagittal MIP reconstructions performed. CT DLP: 311.5 mGycm Automated exposure control for dose reduction was used. FINDINGS: The heart mildly enlarged. There is some dilatation of the right side of the heart and minimal reflux into the hepatic veins. No flattening of the interventricular septum. Scattered mild LAD and RCA coronary artery calcifications. Normal caliber aorta with enlarged heart. Branching anatomy. Prominent 1.0 cm left hilar lymph node p robably reactive. No thoracic lymphadenopathy otherwise seen by CT size criteria. There is a 1.1 cm nodule in the posterior 5-6 o'clock left breast which warrants further mammographic evaluation. Large caliber to the main right pulmonary arteries measuring up to 2.8 and 2.7 cm, respectively. Sati sfactory opacification of the pulmonary arterial system. No evidence for pulmonary embolus. Mild diffuse bronchial wall thickening. Strandy atelectasis in the lower lungs. Mild breathing motion . No consolidation or pleural effusion. Tiny hiatal hernia. Visualized upper abdomen shows moderate atherosclerotic calcifications in the upp er abdominal aorta. Bones: Mild degenerative change of the shoulders. Vertebral compression deformities of T5, T7, T8, T 9, and T12 are age-indeterminate but likely chronic and the lack of any surrounding soft tissue swell ing. IMPRESSION: 1. NO EVIDENCE FOR PULMONARY EMBOLUS. 2. MILD CARDIOMEGALY AND PULMONARY ARTERIAL HYPERTENSION. CORRELATE FOR ELEVATED CARDIAC PRESSURES. 3. A 1.1 CM 5-6 O'CLOCK LEFT BREAST NODULE WARRANTS FURTHER MAMMOGRAPHIC EVALUATION IN ORDER TO EXCLU DE EARLY BREAST CANCER. THE PATIENT SHOULD NOT BE LOST TO FOLLOW-UP. 4. VERTEBRAL COMPRESSION DEFORMITIES MENTIONED ABOVE ARE AGE INDETERMINATE BUT PROBABLY CHRONIC GI VONNIE THE LACK OF ANY SOFT TISSUE SWELLING.
[2021-07-25] MEDS ORDERED: NITROGLYCERIN SL TABS 0.4 MG TAB SUBLINGUAL PRN (20:16)
[2021-07-25] MEDS: VITAMIN E (DL,TOCOPHERYL ACET) 400 UNIT (180 MG) CAP PO SCH (20:43)
[2021-07-25] MEDS: EZETIMIBE 10 MG TAB PO SCH (20:43)
[2021-07-25] MEDS: ASPIRIN 81 MG PO SCH (20:43)
[2021-07-25] MEDS: LOSARTAN 25 MG TAB PO SCH (20:44)
[2021-07-25] MEDS ORDERED: NON FORMULARY DRUG (Omega-3 Fatty Acids/Fish Oil [Fish Oil 1,000 Mg Softgel] 1 EACH Capsul PO SCH (21:00)
[2021-07-25] MEDS ORDERED: carvediloL 12.5 MG TAB PO SCH (21:00)
[2021-07-25] MEDS ORDERED: WARFARIN 2 MG TAB PO ONE (21:00)
[2021-07-26] MEDS: FUROSEMIDE 20 MG TAB PO SCH (09:00)
[2021-07-26] MEDS: DOCUSATE 100 MG CAP PO SCH (09:00)
[2021-07-26] MEDS: FOLIC ACID-VIT B COMPLEX-VIT C 1 CAP PO SCH (09:00)
[2021-07-26] MEDS: ZINC SULFATE 220 MG CAP PO SCH (09:00)
[2021-07-26] MEDS: ISOSORBIDE MONONITRATE ER 30 MG TAB.ER.24H PO SCH (09:00)
[2021-07-26] MEDS: CHOLECALCIFEROL 25 MCG (1000 IU) TABLET PO SCH (09:01)
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
[2021-07-26] MEDS: carvediloL 6.25 MG TAB PO SCH ×2 (09:15→18:03)
[2021-07-26] MEDS ORDERED: ACETAMINOPHEN TAB 500 MG TAB PO PRN (10:41)
[2021-07-26 11:52] VITALS: BMI 29.4
[2021-07-26 12:43] LABS: INR 1.56 (0.90-1.11); Prothrombin Time 16.8 sec (9.9-11.9)
[2021-07-26 12:48] LABS: Basophils # (A) 0.02 X 10*3/uL (0.00-0.10); Basophils % (A) 0.6 %; Eosinophils # (A) 0.02 X 10*3/uL (0.04-0.35); Eosinophils % (A) 0.6 %; HCT 41.8 % (37.2-46.3); HGB 13.4 g/dL (12.0-15.0); Immature Grans, Automated 0 %; Lymphocytes # (A) 1.12 X 10*3/uL (0.90-5.00); Lymphocytes % (A) 30.9 %; MCH 29.5 pg (27.0-32.0); MCHC 32.1 g/dL (32.0-37.0); MCV 92.1 fL (80.0-97.0); Mean Platelet Volume 11.3 fL (9.5-12.2); Monocytes # (A) 0.99 X 10*3/uL (0.20-1.00); Monocytes % (A) 27.3 %; NRBC Per 100 WBC 0 /100 WBCS (0.0-0.0); Neutrophils # (A) 1.47 X 10*3/uL (1.80-7.70); Neutrophils % (A) 40.6 %; Platelet Count 141 X 10*3/uL (140-440); RBC 4.54 X 10*6/uL (4.10-5.20); RDW 13.8 % (11.5-14.5); WBC 3.62 X 10*3/uL (4.50-10.00)
[2021-07-26 13:02] LABS: Albumin 3.6 g/dL (3.8-4.9); Albumin/Globulin Ratio 1.67 (1.60-3.17); Anion Gap 9.6 mmol/L (10.00-18.00); BUN/Creat Ratio 16.55 Ratio (12.00-20.00); Blood Urea Nitrogen 18.2 mg/dL (9.0-27.0); Calcium 8.9 mg/dL (8.7-10.3); Carbon Dioxide 26.8 mmol/L (20.0-27.5); Globulin 2.1 g/dL (1.6-3.3); Non-African American GFR(CKD) 45.7 (60.0-200.0); Potassium 4.6 mmol/L (3.5-5.5); Total Bilirubin 0.4 mg/dL (0.30-1.20); Total Protein 5.7 g/dL (6.2-8.2)
--- NOTE | 2021-07-26 14:00 | ECHOF ---
Referral Reason:syncope MEASUREMENTS -------- HEIGHT: 160.0 cm WEIGHT: 75.3 kg BP: 166/90 RVIDd: 3.5 cm (< 3.3) IVSd: 1.0 cm (0.6 - 1.1) LVIDd: 4.2 cm (3.9 - 5.3) LVPWd: 0.8 cm (0.6 - 1.1) IVSs: 1.6 cm LVIDs: 2.4 cm LVPWs: 1.6 cm LA Diam: 3.6 cm (2.7 - 3.8) LAESV Index (A-L): 30.64 ml/m Ao Diam: 3.4 cm (2.0 - 3.7) AV Cusp: 1.8 cm (1.5 - 2.6) MV EXCURSION: 15.792 mm (> 18.000) MV EF SLOPE: 95 mm/s (70 - 150) EPSS: 0.3 cm AV maxP.42 mmHg AV meanP.32 mmHg RAP: 5.00 mmHg RVSP: 31.25 mmHg FINDINGS -------- Atrial fibrillation. This was a technically adequate study. The left ventricular size is normal. Left ventricular wall thickness is normal. Overall left vent ricular systolic function is normal with, an EF between 55 - 60 %. The right ventricle is mildly enlarged. LA is midly dilated 29-33ml/m2. The right atrium is normal in size. Interatrial and interventricular septum intact. There is moderate aortic valve sclerosis. There is moderate aortic stenosis present. Peak/mean gr adient across the Aortic Valve is 15.42mmHg / 7.32mmHg. Mild mitral regurgitation is present. Moderate tricuspid regurgitation present. Right ventricular systolic pressure is normal at < 35 mmH g. Trace/mild (physiologic) pulmonic regurgitation. The aortic root size is normal. Normal inferior vena cava with normal inspiratory collapse consistent with estimated right atrial pre ssure of 5 mmHg. There is no pericardial effusion. CONCLUSIONS -------- 1. The left ventricular size is normal. 2. Left ventricular wall thickness is normal. 3. Overall left ventricular systolic function is normal with, an EF between 55 - 60 %. 4. The right ventricle is mildly enlarged. 5. LA is midly dilated 29-33ml/m2. 6. There is moderate aortic valve sclerosis. 7. There is moderate aortic stenosis present. 8. Peak/mean gradient across the Aortic Valve is 15.42mmHg / 7.32mmHg. 9. Mild mitral regurgitation is present. 10. Moderate tricuspid regurgitation present. 11. Trace/mild (physiologic) pulmonic regurgitation. 12. There is no pericardial effusion. DAY CARE ATTENDANT: Cony Kessler RDCS
--- NOTE | 2021-07-26 15:56 | US ---
EXAMINATION TYPE: US venous doppler duplex LE BI DATE OF EXAM: 07/26/2021 3:25 PM COMPARISON: CT chest for PE CLINICAL HISTORY: lower extremities pain. COVID patient; on blood thinner for AFIB; patient denies le g swelling. SIDE PERFORMED: Bilateral TECHNIQUE: The lower extremity deep venous system is examined utilizing real time linear array sonog lamont with graded compression, doppler sonography and color-flow sonography. VESSELS IMAGED: Common Femoral Vein Deep Femoral Vein Greater Saphenous Vein * Femoral Vein Popliteal Vein Small Saphenous Vein * Proximal Calf Veins (* superficial vessels) Right Leg: Negative for DVT Left Leg: Negative for DVT IMPRESSION: No evidence of deep vein thrombosis in both legs.
[2021-07-26] MEDS ORDERED: WARFARIN 3 MG TAB PO ONE (18:00)
[2021-07-26] MEDS ORDERED: NON FORMULARY DRUG (Warfarin Sodium [Coumadin] 4 MG Tablet) PO SCH (18:00)
[2021-07-26] MEDS: ASPIRIN 81 MG PO SCH (21:39)
[2021-07-26] MEDS: EZETIMIBE 10 MG TAB PO SCH (21:40)
[2021-07-26] MEDS: VITAMIN E (DL,TOCOPHERYL ACET) 400 UNIT (180 MG) CAP PO SCH (21:40)
[2021-07-26] MEDS: LOSARTAN 25 MG TAB PO SCH (21:40)
[2021-07-27 07:19] VITALS: RESP 18
[2021-07-27] MEDS: FOLIC ACID-VIT B COMPLEX-VIT C 1 CAP PO SCH (08:39)
[2021-07-27] MEDS: FUROSEMIDE 20 MG TAB PO SCH (08:39)
[2021-07-27] MEDS: CHOLECALCIFEROL 25 MCG (1000 IU) TABLET PO SCH (08:39)
[2021-07-27] MEDS: carvediloL 6.25 MG TAB PO SCH ×2 (08:39→17:09)
[2021-07-27] MEDS: ISOSORBIDE MONONITRATE ER 30 MG TAB.ER.24H PO SCH (08:40)
[2021-07-27] MEDS: DOCUSATE 100 MG CAP PO SCH (08:40)
[2021-07-27] MEDS: ZINC SULFATE 220 MG CAP PO SCH (08:40)
[2021-07-27 08:48] LABS: INR 1.7 (<1.2); Prothrombin Time 17.2 sec (9.0-12.0)
--- NOTE | 2021-07-27 11:47 | P.PN ---
Subjective Progress Note Date: 07/27/21 Principal diagnosis: Permanent atrial fibrillation This is a very pleasant 85-year-old female patient was coronary artery disease and coronary artery disease and/or eczematous peripheral tear disease as well as permanent atrial fibrillation who was admitted to the hospital with generalized weakness and fatigue as well as symptoms of presyncope. She was tested positive for COVID-19 infection. He was evaluated this morning. She remains asymptomatic from a cardiovascular standpoint of view, and remains hemodynamically stable. From a cardiovascular standpoint of view, the patient potentially can be discharged home Objective - Vital Signs Vital signs: Vital Signs Temp 97.8 F 07/27/21 07:00 Pulse 63 07/27/21 07:00 Resp 18 07/27/21 07:00 BP 144/78 07/27/21 07:00 Pulse Ox 97 07/27/21 07:00 Intake & Output 07/26/21 07/27/21 07/27/21 18:59 06:59 18:59 Intake Total 240 360 Balance 240 360 Weight 75.296 kg Intake: Oral 240 360 Other: Voiding Method Toilet Toilet Toilet # Voids 1 2 - Constitutional General appearance: Present: no acute distress - Labs CBC & Chem 7: 07/26/21 08:04 07/26/21 08:04 Labs: Abnormal Lab Results - Last 24 Hours (Table) 07/26/21 07/26/21 07/26/21 Range/Units 08:04 08:04 08:04 WBC 3.62 L (4.50-10.00) X 10*3/uL Neutrophils # 1.47 L (1.80-7.70) X 10*3/uL Eosinophils # 0.02 L (0.04-0.35) X 10*3/uL PT 16.8 H (9.9-11.9) sec INR 1.56 H (0.90-1.11) Anion Gap 9.60 L (10.00-18.00) mmol/L Est GFR (CKD-EPI)AfAm 53.0 L (60.0-200.0) Est GFR (CKD-EPI)NonAf 45.7 L (60.0-200.0) Alkaline Phosphatase 131 H (41-126) U/L Total Protein 5.7 L (6.2-8.2) g/dL Albumin 3.6 L (3.8-4.9) g/dL 07/27/21 Range/Units 07:20 WBC (4.50-10.00) X 10*3/uL Neutrophils # (1.80-7.70) X 10*3/uL Eosinophils # (0.04-0.35) X 10*3/uL PT 17.2 H (9.9-11.9) sec INR 1.7 H (0.90-1.11) Anion Gap (10.00-18.00) mmol/L Est GFR (CKD-EPI)AfAm (60.0-200.0) Est GFR (CKD-EPI)NonAf (60.0-200.0) Alkaline Phosphatase (41-126) U/L Total Protein (6.2-8.2) g/dL Albumin (3.8-4.9) g/dL Assessment and Plan Assessment: assessment #1 generalized weakness and fatigue #2 presyncope #3 carotid disease #4 permanent atrial fibrillation #5 valvular heart disease #6 multiple comorbid conditions Plan #1 the patient is asymptomatic and hemodynamically stable #2 consider medical treatment for the carotid disease #3 continue the current medical regimen #4 follow-up with the patient
[2021-07-27 13:34] VITALS: BP 134/80; PULSE 93; TEMP 97.5
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
--- NOTE | 2021-07-27 16:31 | P.DS ---
Providers Date of admission: 07/25/21 14:13 Expected date of discharge: 07/27/21 Attending physician: Sandra Villa Consults: 07/25/21 13:54 Consult Physician Routine Consulting Provider: [facility] Consult Reason/Comments: syncope, a fib Do you want consulting provider notified?: Yes [facility] Course: Diagnoses on discharge: Episode of presyncope Evidence of dehydration with hyponatremia and elevated BUN and creatinine Underlying history of permanent atrial fibrillation Underlying history of carotid stenosis Elevated d-dimer on presentation, CT angiogram of the chest negative for PE Positive COVID-19 PCR testing on presentation, no evidence of pneumonia, patient oxygen saturation is above 90% without any oxygen supplements Incidental finding of a 1.1 cm left breast nodule found on computed tomography scan, patient may need further evaluation as outpatient Evidence of vertebral compression fractures likely chronic, patient may need further evaluation and treatment for osteoporosis as outpatient Underlying history of coronary artery disease Underlying history of hypertension Underlying history of hyperlipidemia Underlying history of osteoarthritis Previous history of gastrointestinal bleeding Hospital Course: Jagruti Thomas, is an 85-year-old female who presented to [facility] emergency room with a chief complaint of pre syncope, patient was at her primary care physicain office and went from sitting to standing before her legs "gave out". She states a staff member was there who caught her and lowered her to the floor. She denies any loss of consciousness.. She was sent to emergency room for evaluation She was evaluated in the emergency room vital examination on presentation revealed a temperature of 98.2 pulse 88 respiration 18 blood pressure 110/74 pulse ox 93% on room air Laboratory data reveals a white blood count of 6.8 hemoglobin 13.9 platelet count 146 sodium 1:30 potassium 4.1 chloride 99 CO2 28 BUN 21 creatinine 1.33 glucose level was 109 COVID-19 PCR was positive INR was 1.8 d-dimer 1.58 Testing in the emergency room revealed CT angiogram of the chest revealed no evidence for pulmonary embolism however it revealed evidence of cardiomegaly and pulmonary arterial hypertension and evidence of 1.1 cm left breast nodule and evidence of vertebral compression deformities likely chronic, chest x-ray did not reveal any evidence of pneumonia. Patient was admitted to medical floor for further evaluation and treatment On 07/27/2021 patient was seen and examined on the telemetry floor she is alert and oriented 3 in no apparent distress there is no fever or chills no headache or dizziness no chest pain no shortness of breath no cough no nausea or vomiting no abdominal pain no diarrhea no blood in the stools no burning with urination no frequency or urgency and no hematuria. During this admission dose of Coreg was decreased to 6.25 mg twice daily and dose of Coumadin was increased to 5 mg by mouth once daily until reevaluated by INR was slightly low at this time presentation at 1.8 CT angiogram of the chest was negative, bilateral lower extremity Doppler were negative. Patient is positive for COVID-19 PCR testing but does not have any symptoms of pneumonia shortness of breath or oxygen desaturation. Her pulse ox is 97% on room air Patient Condition at Discharge: Stable Plan - Discharge Summary Discharge Rx Participant: No New Discharge Prescriptions: New carvediloL [Coreg] 6.25 mg PO BID-W/MEALS tab Warfarin [Coumadin] 5 mg PO DAILY 30 Days #30 tab Continue Model-3 Fatty Acids/Fish Oil [Fish Oil 1,000 mg Softgel] 2 cap PO HS Furosemide [Lasix] 20 mg PO DAILY Nitroglycerin Sl Tabs [Nitrostat] 0.4 mg SL Q5M PRN PRN Reason: Chest Pain Docusate [Colace] 100 mg PO DAILY Aspirin [Adult Low Dose Aspirin EC] 81 mg PO HS Cholecalciferol [Vitamin D3 (25 Mcg = 1000 Iu)] 100 mcg PO DAILY Vitamin B Complex 1 cap PO DAILY Isosorbide Mononitrate ER [Imdur] 90 mg PO DAILY Ezetimibe [Zetia] 10 mg PO HS Irbesartan [Avapro] 112.5 mg PO HS Zinc Sulfate [Orazinc] 25 mg PO DAILY Vitamin E [Vitamin E (1000 Iu = 450 MG)] 1,000 unit PO HS Discontinued Warfarin [Coumadin] 5 mg PO TUFR@1800 Warfarin Sodium [Coumadin] 4 mg PO SUMOWEFRSA@1800 carvediloL [Coreg*] 12.5 mg PO BID Discharge Medication List Docusate [Colace] 100 mg PO DAILY 10/02/14 [History] Furosemide [Lasix] 20 mg PO DAILY 10/02/14 [History] Nitroglycerin Sl Tabs [Nitrostat] 0.4 mg SL Q5M PRN 10/02/14 [History] Model-3 Fatty Acids/Fish Oil [Fish Oil 1,000 mg Softgel] 2 cap PO HS 10/02/14 [History] Aspirin [Adult Low Dose Aspirin EC] 81 mg PO HS 01/13/16 [History] Cholecalciferol [Vitamin D3 (25 Mcg = 1000 Iu)] 100 mcg PO DAILY 10/05/16 [History] Vitamin B Complex 1 cap PO DAILY 06/08/18 [History] Ezetimibe [Zetia] 10 mg PO HS 04/19/19 [History] Isosorbide Mononitrate ER [Imdur] 90 mg PO DAILY 04/19/19 [History] Irbesartan [Avapro] 112.5 mg PO HS 07/25/21 [History] Vitamin E [Vitamin E (1000 Iu = 450 MG)] 1,000 unit PO HS 07/25/21 [History] Zinc Sulfate [Orazinc] 25 mg PO DAILY 07/25/21 [History] Warfarin [Coumadin] 5 mg PO DAILY 30 Days #30 tab 07/27/21 [Rx] carvediloL [Coreg] 6.25 mg PO BID-W/MEALS tab 07/27/21 [Rx] Follow up Appointment(s)/Referral(s): Tahira Choudhury MD [Primary Care Provider] - 1-2 days
[2021-07-27] MEDS ORDERED: WARFARIN 3 MG TAB PO ONE (18:00)
[2021-07-29] MEDS ORDERED: WARFARIN 5 MG TAB PO SCH (18:00)
== END 2021-07-27 17:12 | disposition home or self-care (01) ==
LOC: EC 11:00 → 6NMEDSUR 14:13
PROVIDERS: ADMIT Internal Medicine; ATTEND Internal Medicine
DX: R55 Syncope and collapse (principal); E86.0 Dehydration; U07.1 COVID-19; R79.89 Other specified abnormal findings of blood chemistry; E87.1 Hypo-osmolality and hyponatremia; I65.21 Occlusion and stenosis of right carotid artery; R94.4 Abnormal results of kidney function studies; I48.21 Permanent atrial fibrillation; I11.0 Hypertensive heart disease with heart failure; I27.21 Secondary pulmonary arterial hypertension; I50.9 Heart failure, unspecified; J44.9 Chronic obstructive pulmonary disease, unspecified; I73.9 Peripheral vascular disease, unspecified; I08.3 Combined rheumatic disorders of mitral, aortic and tricuspid valves; I25.10 Atherosclerotic heart disease of native coronary artery without angina pectoris; E78.5 Hyperlipidemia, unspecified; K21.9 Gastro-esophageal reflux disease without esophagitis; M81.0 Age-related osteoporosis without current pathological fracture; G43.909 Migraine, unspecified, not intractable, without status migrainosus; K44.9 Diaphragmatic hernia without obstruction or gangrene; M19.90 Unspecified osteoarthritis, unspecified site; N63.20 Unspecified lump in the left breast, unspecified quadrant; M79.604 Pain in right leg; M79.605 Pain in left leg; D64.9 Anemia, unspecified; E66.9 Obesity, unspecified; Z68.29 Body mass index [BMI] 29.0-29.9, adult; M48.54XA Collapsed vertebra, not elsewhere classified, thoracic region, initial encounter for fracture; H93.13 Tinnitus, bilateral; Z79.82 Long term (current) use of aspirin; Z79.01 Long term (current) use of anticoagulants; Z79.899 Other long term (current) drug therapy; Z88.1 Allergy status to other antibiotic agents; Z88.2 Allergy status to sulfonamides; Z88.8 Allergy status to other drugs, medicaments and biological substances; Z88.4 Allergy status to anesthetic agent; Z86.73 Personal history of transient ischemic attack (TIA), and cerebral infarction without residual deficits; Z90.710 Acquired absence of both cervix and uterus; Z90.49 Acquired absence of other specified parts of digestive tract; Z98.42 Cataract extraction status, left eye; Z98.41 Cataract extraction status, right eye; Z87.891 Personal history of nicotine dependence; Z87.01 Personal history of pneumonia (recurrent); Z87.19 Personal history of other diseases of the digestive system; Z87.440 Personal history of urinary (tract) infections; Z87.828 Personal history of other (healed) physical injury and trauma; Z87.11 Personal history of peptic ulcer disease; Z80.0 Family history of malignant neoplasm of digestive organs; Z82.49 Family history of ischemic heart disease and other diseases of the circulatory system; Z82.3 Family history of stroke
CPT/HCPCS: 99285; 36415; 93005; 93306; 85379; 80053 ×2; 84484; 85025 ×2; 85610 ×3; 85730; 81001; 87635; 71046; 93880; 93970; 71275; G0378 ×3; Q9967

== ENCOUNTER → 2023-07-13 | Outpatient (CLI) | payer MEDICARE ==
--- NOTE | 2023-07-13 15:46 | XR ---
EXAMINATION TYPE: XR chest 2V DATE OF EXAM: 07/13/2023 3:06 PM CLINICAL INDICATION:Female, 87 years old with history of M54.89,R05.1; [facility] COMPARISON: Chest radiographs from 07/17/2021 TECHNIQUE: XR chest 2V Frontal and lateral views of the chest. FINDINGS: Lungs/Pleura: Prominent interstitial lung markings are seen scattered throughout the lungs. No eviden ce of focal consolidation, pneumothorax or pleural effusion. Pulmonary vascularity: Unremarkable. Heart/mediastinum: Cardiomediastinal silhouette is unremarkable. Musculoskeletal: No acute osseous pathology. Other findings: None IMPRESSION: No acute cardiopulmonary disease/process.
== END | disposition home or self-care (01) ==
LOC: RADXRMAIN 14:47
PROVIDERS: ATTEND Nurse Practitioner Family
DX: R05.1 Acute cough (principal); M54.89 Other dorsalgia
CPT/HCPCS: 71046

== ENCOUNTER → 2023-08-19 | Outpatient (CLI) | payer MEDICARE ==
--- NOTE | 2023-08-19 22:18 | US ---
EXAMINATION TYPE: US venous doppler duplex LE RT DATE OF EXAM: 08/19/2023 3:13 PM COMPARISON: NONE CLINICAL INDICATION: Female, 87 years old with history of I38 ENDOCARDITIS, VALVE UNSPECIFIED; right foot edema, right leg pain, patient on blood thinner AFIB SIDE PERFORMED: right TECHNIQUE: The lower extremity deep venous system is examined utilizing real time linear array sonog lamont with graded compression, doppler sonography and color-flow sonography. VESSELS IMAGED: Common Femoral Vein Deep Femoral Vein Greater Saphenous Vein * Femoral Vein Popliteal Vein Small Saphenous Vein * Proximal Calf Veins (* superficial vessels) Right Leg: No evidence of DVT IMPRESSION: No evidence for DVT within the right lower extremity imaged from the groin to the upper calf.
== END | disposition home or self-care (01) ==
LOC: RADUSWWP 14:38
PROVIDERS: ATTEND Internal Medicine Interventional Cardiology
DX: I38 Endocarditis, valve unspecified (principal); I48.91 Unspecified atrial fibrillation; M79.604 Pain in right leg; R60.0 Localized edema; Z79.01 Long term (current) use of anticoagulants